=== PATIENT | male | born 1965 | race Caucasian/White ===

== ENCOUNTER 2017-05-10 10:22 | Inpatient (IN) | payer OTHER ==
[~2017-05-10] VITALS: Ht 177.8 cm; Wt 60.6 kg
[2017-05-10] MEDS ORDERED: ASPI81TA28 PO (11:03)
[2017-05-10] MEDS ORDERED: MELO7.5T5 PO (11:03)
[2017-05-10] MEDS ORDERED: PANT40TA PO (11:03)
[2017-05-10] MEDS ORDERED: DLN100 PO (11:03)
[2017-05-10] MEDS ORDERED: MIRT15TA2 PO (11:03)
[2017-05-10] MEDS ORDERED: SODIINJ24 IV (11:03)
[2017-05-10] MEDS ORDERED: PHEN50CH PO (11:03)
[2017-05-10] MEDS ORDERED: LPT10 (11:03)
[2017-05-10] MEDS ORDERED: ONDANSETRON INJ 2 MG/ML 2 ML VIAL IV STA (11:16)
[2017-05-10] MEDS ORDERED: SODIUM CHLORIDE 0.9% 1000ML 1,000 ML IV STA (11:16)
[2017-05-10] MEDS ORDERED: MoRPHine SULFATE 4 MG/ML 1 ML CARP\\VIAL IV STA (11:16)
[2017-05-10] MEDS ORDERED: OPTIRAY 320 IV PRN (11:30)
[2017-05-10] MEDS ORDERED: PANTOprazole INJ 40 MG in SYRINGE 0 ML IV ONE (11:30)
[2017-05-10 11:40] LABS: BASO % 0.1 %; BASO ABS # 0.01 K/uL (0-0.2); COMPLETE YES; EOS % 0.1 %; HEMATOCRIT 42.9 % (42-52); IG% 0.2 %; LYMPH % 7.4 %; LYMPH ABS # 0.85 K/uL (1.2-3.4); MEAN CELL VOLUME 91.9 fL (80-100); MEAN CORPUSCULAR HEMOGLOBIN 31.9 pg (25-34); MEAN CORPUSCULAR HGB CONC 34.7 g/dl (32-36); MEAN PLATELET VOLUME 9.5 fL (7.4-10.4); MONO % 6.3 %; NEUT % 85.9 %; PLATELET COUNT 197 K/uL (130-400); RED BLOOD COUNT 4.67 M/uL (4.7-6.1)
[2017-05-10 11:56] LABS: ALT/SGPT 26 U/L (12-78); BLOOD UREA NITROGEN 14 mg/dl (7-18); CALCIUM 9.8 mg/dl (8.5-10.1); CARBON DIOXIDE 39 mmol/L (21-32); CHLORIDE 93 mmol/L (98-107); CREATININE 0.89 mg/dl (0.60-1.40); GLUCOSE 137 mg/dl (70-99); SODIUM 136 mmol/L (136-145)
[2017-05-10 11:59] LABS: ALKALINE PHOSPHATASE 180 U/L (45-117); AST/SGOT 29 U/L (15-37)
[2017-05-10] MEDS ORDERED: METOCLOPRAMIDE HCL INJ 5 MG/ML 2 ML VIAL IV STA (12:41)
--- NOTE | 2017-05-10 13:51 | DIAGNOSTIC IMAGING REPORT ---
ABDOMEN AND PELVIS CT WITH IV CONTRAST CT DOSE: 307.93 mGycm HISTORY: Nausea. Vomiting. diffuse abd pain TECHNIQUE: Multiaxial CT images of the abdomen and pelvis were performed following the use of intravenous contrast. A dose lowering technique was utilized adhering to the principles of ALARA. COMPARISON STUDY: None. FINDINGS: The lung bases are clear. No pneumoperitoneum. No pneumatosis. There is moderate thickening within the fluid filled mildly distended esophagus. There is periesophageal edema. There is a severely distended and fluid-filled stomach and proximal duodenum. There is abrupt caliber change at the third portion of the duodenum as it crosses the aorta. This is consistent with the transition point of the high-grade duodenal obstruction. No definite mass identified. The remaining small bowel is completely decompressed. The bladder is mildly distended. No retroperitoneal lymphadenopathy. The distended stomach and duodenum compresses the gallbladder. There is mild right hydronephrosis likely secondary to compression of the mid ureter from the distended proximal duodenum. The duodenum also compresses the IVC. The kidneys enhance normally. No hepatic or splenic masses. The pancreas is compressed by the distended stomach but appears to demonstrate normal enhancement. Mild dilatation of the distal main pancreatic duct measuring 4 mm. This could also be due to the distended duodenum. Trace right pleural effusion. IMPRESSION: 1. High-grade of duodenal obstruction with the transition point at the third portion of the duodenum as it crosses the aorta. There is no definite mass identified. Nasogastric tube is recommended to decompress the severely distended and fluid-filled stomach. The etiology of the obstruction is not clearly identified but could be due to an occult mass, stricture, or possibly a superior mesenteric artery syndrome given the location of the obstruction. Endoscopy is recommended for further evaluation. 2. Mildly distended distal esophagus which demonstrates moderate wall thickening and periesophageal edema. This could also be due to the long-standing obstruction. Esophageal tear is considered less likely given the lack of pneumomediastinum. 3. These findings were discussed with Dr. Guevara at 1:45 PM on 05/10/2017. Electronically signed by: Marek Beck M.D. 05/10/2017 1:49 PM Dictated Date/Time: 05/10/2017 1:32 PM
[2017-05-10 14:37] LABS: URINE APPEARANCE CLEAR (CLEAR); URINE BILIRUBIN NEG (NEG); URINE COLOR YELLOW; URINE NITRITE NEG (NEG); URINE PH >= 9.0 (4.5-7.5); URINE SPECIFIC GRAVITY > 1.045 (1.000-1.030); UROBILINOGEN NEG (NEG); ZZUR CULT IF INDIC CLEAN CATCH NO
[2017-05-10 14:44] LABS: MANUAL MICROSCOPIC REQUIRED? NO; REVIEW REQ? NO
[2017-05-10 14:45] LABS: SULFASALICYLIC ACID NEG (NEG)
--- NOTE | 2017-05-10 15:20 | Pre-Operative Consultation ---
History General Date of Service: May 10, 2017. (Elkin Bird JR.,FARHADC) HPI HPI: The patient is a 51 year old male inmate brought to the ER for bloating, N/V that began yesterday after having chile for lunch. He was up most of the night vomiting. No previous episodes. [place] good yesterday morning. Bowels moved today. No previous abdominal surgery. Weight loss 10 pounds over several months. Has long history of hot/cold flashes and night sweats going back to childhood. (Elkin Bird JR.,HOMER) Risk Assessment Daily beta galina use?: No (Elkin Bird JR.,HOMER) Medical & Surgical History Past Medical History: seizure Past Surgical History: no surgical history (abdominal) (Elkin Bird JR.,HOMER) Social History Smoking Status: Current Every Day Smoker (Elkin Bird JR.,HOMER) Allergies Allergies: Coded Allergies: No Known Allergies (Unverified , 05/10/17) Medications Current Inpatient Medications Current Inpatient Medications Medications (Trade) Dose Ordered Sig/Dorothea Route Start Time Stop Time Status Last Admin Dose Admin Ioversol (Optiray 320) 100 ml UD PRN IV 05/10/17 11:30 05/14/17 11:29 (Elkin Bird JR.,FARHADC) Review of Systems Review of Systems Constitutional: see HPI, chills, diaphoresis, fever Gastrointestinal: see HPI, denies abdominal pain, denies constipation, denies diarrhea, nausea, vomiting (Elkin Bird JR.,NAVIN-C) Physical Exam Physical Exam Physical Exam: T 37.3 P 79 R 18 BP 151/99 O2 99% General Appearance: + other (thin), No distress Ears, Nose, Throat: + normal ENT inspection, + other (NG at 80 cm, > 4 liters drained) Neck: No lymphadenophy Respiratory: No accessory muscle use, No abnormal breath sounds Cardiovascular: No JVD, No tachycardia Abdomen: No tenderness, No distension, No organomegaly, No mass Extremities: No edema, No deformity (Elkin Bird JR.,FARHADC) Diagnostics Labs Labs Results Past 24 Hours Test 05/10/17 11:25 05/10/17 14:20 Range/Units White Blood Count 11.50 4.8-10.8 K/uL Red Blood Count 4.67 4.7-6.1 M/uL Hemoglobin 14.9 14.0-18.0 g/dL Hematocrit 42.9 42-52 % Mean Corpuscular Volume 91.9 80-100 fL Mean Corpuscular Hemoglobin 31.9 25-34 pg Mean Corpuscular Hemoglobin Concent 34.7 32-36 g/dl Platelet Count 197 130-400 K/uL Mean Platelet Volume 9.5 7.4-10.4 fL Neutrophils (%) (Auto) 85.9 % Lymphocytes (%) (Auto) 7.4 % Monocytes (%) (Auto) 6.3 % Eosinophils (%) (Auto) 0.1 % Basophils (%) (Auto) 0.1 % Neutrophils # (Auto) 9.88 1.4-6.5 K/uL Lymphocytes # (Auto) 0.85 1.2-3.4 K/uL Monocytes # (Auto) 0.73 0.11-0.59 K/uL Eosinophils # (Auto) 0.01 0-0.5 K/uL Basophils # (Auto) 0.01 0-0.2 K/uL RDW Standard Deviation 42.3 36.4-46.3 fL RDW Coefficient of Variation 12.6 11.5-14.5 % Immature Granulocyte % (Auto) 0.2 % Immature Granulocyte # (Auto) 0.02 0.00-0.02 K/uL Sodium Level 136 136-145 mmol/L Potassium Level 3.0 3.5-5.1 mmol/L Chloride Level 93 98-107 mmol/L Carbon Dioxide Level 39 21-32 mmol/L Anion Gap 4.0 3-11 mmol/L Blood Urea Nitrogen 14 7-18 mg/dl Creatinine 0.89 0.60-1.40 mg/dl Est Creatinine Clear Calc Drug Dose 82.3 ml/min Estimated GFR () 113.1 Estimated GFR (Non- 97.6 BUN/Creatinine Ratio 16.0 10-20 Random Glucose 137 70-99 mg/dl Calcium Level 9.8 8.5-10.1 mg/dl Total Bilirubin 0.5 0.2-1 mg/dl Direct Bilirubin < 0.1 0-0.2 mg/dl Aspartate Amino Transf (AST/SGOT) 29 15-37 U/L Alanine Aminotransferase (ALT/SGPT) 26 12-78 U/L Alkaline Phosphatase 180 45-117 U/L Total Protein 8.5 6.4-8.2 gm/dl Albumin 4.8 3.4-5.0 gm/dl Lipase 289 73-393 U/L Urine Color YELLOW Urine Appearance CLEAR CLEAR Urine pH >= 9.0 4.5-7.5 Urine Specific [place] > 1.045 1.000-1.030 Urine Protein NEG NEG Urine Glucose (UA) NEG NEG Urine Ketones NEG NEG Urine Occult Blood NEG NEG Urine Nitrite NEG NEG Urine Bilirubin NEG NEG Urine Urobilinogen NEG NEG Urine Leukocyte Esterase NEG NEG Urine WBC (Auto) 1-5 0-5 /hpf Urine RBC (Auto) 0-4 0-4 /hpf Urine Hyaline Casts (Auto) 1-5 0-5 /lpf Urine Epithelial Cells (Auto) 10-20 0-5 /lpf Urine Bacteria (Auto) NEG NEG (Elkin Bird JR.,PA-C) Diagnostic Radiology Diagnostic Radiology ABDOMEN AND PELVIS CT WITH IV CONTRAST CT DOSE: 307.93 mGycm HISTORY: Nausea. Vomiting. diffuse abd pain TECHNIQUE: Multiaxial CT images of the abdomen and pelvis were performed following the use of intravenous contrast. A dose lowering technique was utilized adhering to the principles of ALARA. COMPARISON STUDY: None. FINDINGS: The lung bases are clear. No pneumoperitoneum. No pneumatosis. There is moderate thickening within the fluid filled mildly distended esophagus. There is periesophageal edema. There is a severely distended and fluid-filled stomach and proximal duodenum. There is abrupt caliber change at the third portion of the duodenum as it crosses the aorta. This is consistent with the transition point of the high-grade duodenal obstruction. No definite mass identified. The remaining small bowel is completely decompressed. The bladder is mildly distended. No retroperitoneal lymphadenopathy. The distended stomach and duodenum compresses the gallbladder. There is mild right hydronephrosis likely secondary to compression of the mid ureter from the distended proximal duodenum. The duodenum also compresses the IVC. The kidneys enhance normally. No hepatic or splenic masses. The pancreas is compressed by the distended stomach but appears to demonstrate normal enhancement. Mild dilatation of the distal main pancreatic duct measuring 4 mm. This could also be due to the distended duodenum. Trace right pleural effusion. IMPRESSION: 1. High-grade of duodenal obstruction with the transition point at the third portion of the duodenum as it crosses the aorta. There is no definite mass identified. Nasogastric tube is recommended to decompress the severely distended and fluid-filled stomach. The etiology of the obstruction is not clearly identified but could be due to an occult mass, stricture, or possibly a superior mesenteric artery syndrome given the location of the obstruction. Endoscopy is recommended for further evaluation. 2. Mildly distended distal esophagus which demonstrates moderate wall thickening and periesophageal edema. This could also be due to the long-standing obstruction. Esophageal tear is considered less likely given the lack of pneumomediastinum. 3. These findings were discussed with Dr. Guevara at 1:45 PM on 05/10/2017. Electronically signed by: Marek Beck M.D. 05/10/2017 1:49 PM Dictated Date/Time: 05/10/2017 1:32 PM (Elkin Bird JR.,FARHADC) Impression Assessment and Plan Assessment and Plan duodenal obstruction Decompressed with placement of NG. Abdominal exam is benign. Being admitted by medicine and awaiting GI evaluation. We will be following during admission. NG can be pulled back. (Elkin Bird JR.,PAVeliaC) Assessment and Plan 05/10/17- please see Ale Bird consult- pt says he was feeling ok until last day or 2 to ER with severe abd pain- w/u showed duodenal obstruction- 3rd portion- severe gastric distention- recovered 4.5 liters NG output so far. Feels better. Has had wt loss over unknown period. For GI evaluation. No malignancy seen on studies- would be very unusual to see SMA syndrome in this setting. (Aleksandar Toussaint M.D.)
[2017-05-10] MEDS ORDERED: ONDANSETRON INJ 2 MG/ML 2 ML VIAL IV PRN (15:45)
[2017-05-10] MEDS ORDERED: ACETAMINOPHEN IV 650 MG in EMPTY BAG 0 ML IV PRN (15:45)
--- NOTE | 2017-05-10 15:46 | EMERGENCY ROOM VISIT NOTE ---
History Report prepared by Tae: Corazon Flor Under the Supervision of: Dr. Eliu Guevara D.O. First contact with patient: 11:09 Chief Complaint: ABDOMINAL PAIN Stated Complaint: ABDOMINAL PAIN Nursing Triage Summary: Patient is an inmate from [facility] escorted by 2 correction officers. Patient presents to ER via ALS. Per EMS, patient c/o of abdominal pain, nausea and vomiting since last night. Possible hx of Hepatitis C. Last BM this morning. No Diarrhea. Patient received Zofran 4 mg enroute. History of Present Illness The patient is a 51 year old male who presents to the Emergency Room with complaints of persistent diffuse abdominal pain that began yesterday. He currently rates his discomfort as an 8/10 in severity. The patient states that his pain began yesterday and states that he has been nauseous and vomiting as well. He states that his last bowel movement was yesterday, noting that it was normal. The patient denies any history of abdominal surgeries. He states that today he developed burning with urination. The patient denies any history of cirrhosis of the liver. He does report a history of seizures. Per nursing notes the patient received 4 mg of Zofran en-route to the emergency department. The patient denies headache, change in vision, fevers, chest pain, shortness of breath, diarrhea, and melena. Source of History: patient Onset: yesterday Position: abdomen (diffuse) Symptom Intensity: 8/10 Timing: other (persistent) Associated Symptoms: + nausea, + vomiting Review of Systems See HPI for pertinent positives & negatives. A total of 10 systems reviewed and were otherwise negative. Past Medical & Surgical Medical Problems: (1) SBO (small bowel obstruction) (2) Seizure Family History no pertinent family history stated. Social History Smoking Status: Current Every Day Smoker Housing Status: other ([facility]) Occupation Status: unemployed Current/Historical Medications Scheduled Aspirin (Aspirin Ec), 81 MG PO DAILY Meloxicam (Mobic), 15 MG PO DAILY Pantoprazole (Protonix), 40 MG PO DAILY Phenytoin Sodium (Dilantin), 1 CAP PO TID Sodium Chloride Flush (Normal Saline I.v. Flush), 150 ML IV Q1H Miscellaneous Medications Atorvastatin (Atorvastatin Calcium) Mirtazapine Soltab (Remeron Soltab), 15 MG PO Phenytoin (Dilantin Chewable), 50 MG PO Allergies Coded Allergies: No Known Allergies (Unverified , 05/10/17) Physical Exam Vital Signs Date Time Temp Pulse Resp B/P (MAP) Pulse Ox O2 Delivery O2 Flow Rate FiO2 05/10/17 14:22 79 18 151/99 99 Room Air 05/10/17 13:13 67 05/10/17 13:00 72 16 146/89 98 Room Air 05/10/17 12:13 70 18 144/87 99 Room Air 05/10/17 10:37 75 05/10/17 10:22 37.3 75 18 136/87 95 Room Air Physical Exam GENERAL: Sitting up in bed, alert, ill-appearing, iwth coffee ground emesis, gastro-keo positive. EYE EXAM: normal conjunctiva. OROPHARYNX: no exudate, no erythema, lips, buccal mucosa, and tongue normal and mucous membranes are moist NECK: supple, no nuchal rigidity, no adenopathy, non-tender LUNGS: Clear to auscultation. Normal chest wall mechanics HEART: no murmurs, S1 normal and S2 normal ABDOMEN: abdomen distended, mild diffuse tenderness, normo-active bowel sounds, no masses, no rebound or guarding. BACK: Back is symmetrical on inspection and there is no deformity, no midline tenderness, no CVA tenderness. SKIN: no rashes and no bruising UPPER EXTREMITIES: upper extremities are grossly normal. LOWER EXTREMITIES: No pitting edema. NEURO EXAM: Normal sensorium, cranial nerves II-XII grossly intact, normal speech, no gross weakness of arms, no gross weakness of legs. Medical Decision & Procedures ER Provider Diagnostic Interpretation: CT:Per my review, radiologist interpretation. ABDOMEN AND PELVIS CT WITH IV CONTRAST CT DOSE: 307.93 mGycm HISTORY: Nausea. Vomiting. diffuse abd pain TECHNIQUE: Multiaxial CT images of the abdomen and pelvis were performed following the use of intravenous contrast. A dose lowering technique was utilized adhering to the principles of ALARA. COMPARISON STUDY: None. FINDINGS: The lung bases are clear. No pneumoperitoneum. No pneumatosis. There is moderate thickening within the fluid filled mildly distended esophagus. There is periesophageal edema. There is a severely distended and fluid-filled stomach and proximal duodenum. There is abrupt caliber change at the third portion of the duodenum as it crosses the aorta. This is consistent with the transition point of the high-grade duodenal obstruction. No definite mass identified. The remaining small bowel is completely decompressed. The bladder is mildly distended. No retroperitoneal lymphadenopathy. The distended stomach and duodenum compresses the gallbladder. There is mild right hydronephrosis likely secondary to compression of the mid ureter from the distended proximal duodenum. The duodenum also compresses the IVC. The kidneys enhance normally. No hepatic or splenic masses. The pancreas is compressed by the distended stomach but appears to demonstrate normal enhancement. Mild dilatation of the distal main pancreatic duct measuring 4 mm. This could also be due to the distended duodenum. Trace right pleural effusion. IMPRESSION: 1. High-grade of duodenal obstruction with the transition point at the third portion of the duodenum as it crosses the aorta. There is no definite mass identified. Nasogastric tube is recommended to decompress the severely distended and fluid-filled stomach. The etiology of the obstruction is not clearly identified but could be due to an occult mass, stricture, or possibly a superior mesenteric artery syndrome given the location of the obstruction. Endoscopy is recommended for further evaluation. 2. Mildly distended distal esophagus which demonstrates moderate wall thickening and periesophageal edema. This could also be due to the long-standing obstruction. Esophageal tear is considered less likely given the lack of pneumomediastinum. 3. These findings were discussed with Dr. Guevara at 1:45 PM on 05/10/2017. Electronically signed by: Marek Beck M.D. 05/10/2017 1:49 PM Dictated Date/Time: 05/10/2017 1:32 PM Laboratory Results 05/10/17 11: Red Blood Count 4.67, Mean Corpuscular Volume 91.9, Mean Corpuscular Hemoglobin 31.9, Mean Corpuscular Hemoglobin Concent 34.7, Mean Platelet Volume 9.5, Neutrophils (%) (Auto) 85.9, Lymphocytes (%) (Auto) 7.4, Monocytes (%) (Auto) 6.3, Eosinophils (%) (Auto) 0.1, Basophils (%) (Auto) 0.1, Neutrophils # (Auto) 9.88, Lymphocytes # (Auto) 0.85, Monocytes # (Auto) 0.73, Eosinophils # (Auto) 0.01, Basophils # (Auto) 0.01 05/10/17 11:25 Test 05/10/17 11:25 05/10/17 14:20 White Blood Count 11.50 K/uL (4.8-10.8) Red Blood Count 4.67 M/uL (4.7-6.1) Hemoglobin 14.9 g/dL (14.0-18.0) Hematocrit 42.9 % (42-52) Mean Corpuscular Volume 91.9 fL (80-100) Mean Corpuscular Hemoglobin 31.9 pg (25-34) Mean Corpuscular Hemoglobin Concent 34.7 g/dl (32-36) Platelet Count 197 K/uL (130-400) Mean Platelet Volume 9.5 fL (7.4-10.4) Neutrophils (%) (Auto) 85.9 % Lymphocytes (%) (Auto) 7.4 % Monocytes (%) (Auto) 6.3 % Eosinophils (%) (Auto) 0.1 % Basophils (%) (Auto) 0.1 % Neutrophils # (Auto) 9.88 K/uL (1.4-6.5) Lymphocytes # (Auto) 0.85 K/uL (1.2-3.4) Monocytes # (Auto) 0.73 K/uL (0.11-0.59) Eosinophils # (Auto) 0.01 K/uL (0-0.5) Basophils # (Auto) 0.01 K/uL (0-0.2) RDW Standard Deviation 42.3 fL (36.4-46.3) RDW Coefficient of Variation 12.6 % (11.5-14.5) Immature Granulocyte % (Auto) 0.2 % Immature Granulocyte # (Auto) 0.02 K/uL (0.00-0.02) Anion Gap 4.0 mmol/L (3-11) Est Creatinine Clear Calc Drug Dose 82.3 ml/min Estimated GFR () 113.1 Estimated GFR (Non- 97.6 BUN/Creatinine Ratio 16.0 (10-20) Calcium Level 9.8 mg/dl (8.5-10.1) Total Bilirubin 0.5 mg/dl (0.2-1) Direct Bilirubin < 0.1 mg/dl (0-0.2) Aspartate Amino Transf (AST/SGOT) 29 U/L (15-37) Alanine Aminotransferase (ALT/SGPT) 26 U/L (12-78) Alkaline Phosphatase 180 U/L (45-117) Total Protein 8.5 gm/dl (6.4-8.2) Albumin 4.8 gm/dl (3.4-5.0) Lipase 289 U/L (73-393) Urine Color YELLOW Urine Appearance CLEAR (CLEAR) Urine pH >= 9.0 (4.5-7.5) Urine Specific [place] > 1.045 (1.000-1.030) Urine Protein NEG (NEG) Urine Glucose (UA) NEG (NEG) Urine Ketones NEG (NEG) Urine Occult Blood NEG (NEG) Urine Nitrite NEG (NEG) Urine Bilirubin NEG (NEG) Urine Urobilinogen NEG (NEG) Urine Leukocyte Esterase NEG (NEG) Urine WBC (Auto) 1-5 /hpf (0-5) Urine RBC (Auto) 0-4 /hpf (0-4) Urine Hyaline Casts (Auto) 1-5 /lpf (0-5) Urine Epithelial Cells (Auto) 10-20 /lpf (0-5) Urine Bacteria (Auto) NEG (NEG) Laboratory results per my review. Medications Administered Medications (Trade) Dose Ordered Sig/Dorothea Route Start Time Stop Time Status Last Admin Dose Admin Sodium Chloride 1,000 ml @ 999 mls/hr Q1H1M STAT IV 05/10/17 11:16 05/10/17 12:16 DC 05/10/17 11:16 999 MLS/HR Ondansetron HCl (Zofran Inj) 4 mg NOW STAT IV 05/10/17 11:16 05/10/17 11:18 DC 05/10/17 11:16 4 MG Pantoprazole Sodium 40 mg/ Syringe 10 ml @ 5 mls/min NOW ONCE IV 05/10/17 11:30 05/10/17 11:31 DC 05/10/17 11:30 5 MLS/MIN Morphine Sulfate (MoRPHine SULFATE INJ) 4 mg NOW STAT IV 05/10/17 11:16 05/10/17 11:18 DC 05/10/17 11:16 4 MG Metoclopramide HCl (Reglan Inj) 5 mg NOW STAT IV 05/10/17 12:41 05/10/17 12:42 DC 05/10/17 13:00 5 MG ED Course ED COURSE: Vital signs were reviewed and showed normal vitals The patients medical record was reviewed The above diagnostic studies were performed and reviewed. ED treatments and interventions as stated above. 1112: The patient was evaluated in room C5. A complete history and physical examination was performed. 1116: Ordered Morphine Sulfate 4 mg IV, Zofran Inj 4 mg IV, Sodium Chloride 1000 ml @ 999 mls/hr IV. 1130: Ordered Pantoprazole Sodium 40 mg/Syringe 10 ml @ 5 mls/min IV. 1241: Ordered Reglan Inj 5 mg IV. 1325: I updated the patient at this time and he is doing okay. 1337: I discussed the patients radiographic results with Dr. Beck, Radiology. He states that the patient has a small bowel obstruction. 1358: I discussed the patients case with [facility]. She said get General Surgery on board and they will evaluate the patient. 1405: Upon reevaluation, the patient is resting comfortably.I discussed my findings with the patient and he understands and agrees with the treatment plan. Based on the patients age, coexisting illnesses, exam and lab findings the decision to treat as an inpatient was made. The patient remained stable while under my care. The patient will be evaluated for further management. 1406: I discussed the patients case with Dr. Toussaint, General Surgery. He states that he will see the patient. 1410: I discussed the patients case with Santa Jamison. She is going to evaluate the patient for further treatment. Medical Decision Differential diagnoses includes but is not limited to gastritis, peptic ulcer disease, GERD, gallbladder disease, pancreatitis, small bowel obstruction, acute coronary syndrome, pericarditis, ischemic bowel, irritable bowel disease, irritable bowel syndrome, appendicitis, diverticulitis, malignancy, hernia, urinary tract infection, torsion, perforation, trauma, infectious. Patient is a 51-year-old male who presents to ER for vomiting and abdominal pain. On exam he does have hematemesis. CBC shows a mild leukocytosis. BMP has a hypokalemia. Bilirubin all LFTs and lipase is unremarkable. UA was negative. CT shows a high-grade duodenal obstruction. Discussed with GI and surgery. Both will evaluate the patient at bedside. I did place an NG tube and over 2 L was removed. He was given IV Protonix. Patient was also given Zofran and Reglan. He felt significant better. Discussed with internal medicine. He is admitted for high-grade duodenal obstruction and is being evaluated by GI, surgery and internal medicine. Medication Reconcilliation Current Medication List: was personally reviewed by me Blood Pressure Screening Patient's blood pressure: Normal blood pressure Blood pressure disposition: Did not require urgent referral Consults Time Called: 1354 Consulting Physician: Aliza Gonzalez, Gastroenterology Returned Call: [phone] I discussed the patients case with [facility]. She said get General Surgery on board and they will evaluate the patient. Additional Consults: Time Called: 1403 Consulted Physician: Dr. Toussaint, General Surgery Returned Call: [phone] Additional Comments: I discussed the patients case with Dr. Toussaint, General Surgery. He states that he will see the patient. Time Called: 1403 Consulted Physician: Santa Jamison Returned Call: [phone] Additional Comments: I discussed the patients case with Snata Jamison. She is going to evaluate the patient for further treatment. Impression Primary Impression: SBO (small bowel obstruction) Additional Impression: Hypokalemia Scribe Attestation The scribe's documentation has been prepared under my direction and personally reviewed by me in its entirety. I confirm that the note above accurately reflects all work, treatment, procedures, and medical decision making performed by me. Departure Information Dispostion Being Evaluated By Hospitalist Problem Qualifiers
[2017-05-10 16:15] VITALS: BP 120/76; PULSE 83; TEMP 37.1; O2SAT 98
--- NOTE | 2017-05-10 16:41 | History and Physical ---
History & Physical Date & Time of Service: May 10, 2017 at 16:11 Chief Complaint: Abdominal Pain Primary Care Physician: No Doctor, Assigned History of Present Illness Source: patient 51 yo M prisoner presents with abdominal pain and distention since yesterday shortly after eating some chili in the [place]. He began vomiting which was continuous overnight. His last BM was yesterday and he denies any abnormality to the stool. He denies any blood in stool. He denies a history of this type of abdominal pain in the past and denies any surgeries in the past. He is a prior marajuana user and prior heavy drinker, but is currently incarcerated. He reports using Mobic, ASA and Protonix regularly and has chronic back pain. He reports a h/o migraines and chronic back pain which are not currently present. He otherwise has no other symptoms at this time. In the ER a CT scan revealed a high grade small bowel obstruction and an NGT was placed with 4500 cc of fluid returned and reported hematemesis per ER provider. The patient subsequently is feeling well since the NGT was placed with no further abdominal distention and resolution of his abdominal pain. Past Medical/Surgical History Medical Problems: (1) Chronic back pain Status: Chronic (2) Hyperlipidemia Status: Chronic (3) Seizure Status: Resolved Denies a prior history of surgeries. Family History Patient reports no known family medical history. Social History Smoking Status: Current Every Day Smoker Smokeless Tobacco Use: Yes Alcohol Use: none Drug Use: none Marital Status: other Housing status: other Occupational Status: other Multi-Drug Resistant Organisms History of MDRO: No Allergies Coded Allergies: No Known Allergies (Unverified , 05/10/17) Home Medications Scheduled Aspirin (Aspirin Ec), 81 MG PO DAILY Meloxicam (Mobic), 15 MG PO DAILY Mirtazapine Soltab (Remeron Soltab), 15 MG PO HS Pantoprazole (Protonix), 40 MG PO DAILY Phenytoin (Dilantin Chewable), 50 MG PO HS Phenytoin Sodium (Dilantin), 2 CAP PO BID Miscellaneous Medications Atorvastatin (Atorvastatin Calcium) Review of Systems At least ten systems were reviewed and negative except as indicated in HPI. Physical Exam Vital Signs Date Time Temp Pulse Resp B/P (MAP) Pulse Ox O2 Delivery O2 Flow Rate FiO2 05/10/17 15:54 89 14 129/76 97 Room Air 05/10/17 14:22 79 18 151/99 99 Room Air 05/10/17 13:13 67 05/10/17 13:00 72 16 146/89 98 Room Air 05/10/17 12:13 70 18 144/87 99 Room Air 05/10/17 10:37 75 05/10/17 10:22 37.3 75 18 136/87 95 Room Air General Appearance: no apparent distress, + thin, + pertinent finding (NGT in place with dark vomitous in suction cannister. ) Head: normocephalic, atraumatic Eyes: normal inspection, PERRL, sclerae normal ENT: hearing grossly normal, pharynx normal Neck: supple, no JVD, trachea midline Respiratory/Chest: lungs clear, no respiratory distress, no accessory muscle use, + decreased breath sounds (clear but diminished) Cardiovascular: regular rate, rhythm, no edema, no gallop, no murmur, normal peripheral pulses Abdomen/GI: normal bowel sounds, non tender, soft Back: normal inspection Extremities/Musculoskelatal: normal inspection, no pedal edema, + pertinent finding (limited ability to test ROM as pt has leg shackles on ) Neurologic/Psych: 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, no motor/sensory deficits, alert, normal mood/affect, oriented x 3 Skin: normal color, warm/dry, no rash Diagnostics Laboratory Results 05/10/17 11:25 Red Blood Count 4.67, Mean Corpuscular Volume 91.9, Mean Corpuscular Hemoglobin 31.9, Mean Corpuscular Hemoglobin Concent 34.7, Mean Platelet Volume 9.5, Neutrophils (%) (Auto) 85.9, Lymphocytes (%) (Auto) 7.4, Monocytes (%) (Auto) 6.3, Eosinophils (%) (Auto) 0.1, Basophils (%) (Auto) 0.1, Neutrophils # (Auto) 9.88, Lymphocytes # (Auto) 0.85, Monocytes # (Auto) 0.73, Eosinophils # (Auto) 0.01, Basophils # (Auto) 0.01 05/10/17 11:25 Test 05/10/17 11:25 05/10/17 14:20 05/10/17 16:02 White Blood Count 11.50 K/uL (4.8-10.8) Red Blood Count 4.67 M/uL (4.7-6.1) Hemoglobin 14.9 g/dL (14.0-18.0) Hematocrit 42.9 % (42-52) Mean Corpuscular Volume 91.9 fL (80-100) Mean Corpuscular Hemoglobin 31.9 pg (25-34) Mean Corpuscular Hemoglobin Concent 34.7 g/dl (32-36) Platelet Count 197 K/uL (130-400) Mean Platelet Volume 9.5 fL (7.4-10.4) Neutrophils (%) (Auto) 85.9 % Lymphocytes (%) (Auto) 7.4 % Monocytes (%) (Auto) 6.3 % Eosinophils (%) (Auto) 0.1 % Basophils (%) (Auto) 0.1 % Neutrophils # (Auto) 9.88 K/uL (1.4-6.5) Lymphocytes # (Auto) 0.85 K/uL (1.2-3.4) Monocytes # (Auto) 0.73 K/uL (0.11-0.59) Eosinophils # (Auto) 0.01 K/uL (0-0.5) Basophils # (Auto) 0.01 K/uL (0-0.2) RDW Standard Deviation 42.3 fL (36.4-46.3) RDW Coefficient of Variation 12.6 % (11.5-14.5) Immature Granulocyte % (Auto) 0.2 % Immature Granulocyte # (Auto) 0.02 K/uL (0.00-0.02) Anion Gap 4.0 mmol/L (3-11) Est Creatinine Clear Calc Drug Dose 82.3 ml/min Estimated GFR () 113.1 Estimated GFR (Non- 97.6 BUN/Creatinine Ratio 16.0 (10-20) Calcium Level 9.8 mg/dl (8.5-10.1) Total Bilirubin 0.5 mg/dl (0.2-1) Direct Bilirubin < 0.1 mg/dl (0-0.2) Aspartate Amino Transf (AST/SGOT) 29 U/L (15-37) Alanine Aminotransferase (ALT/SGPT) 26 U/L (12-78) Alkaline Phosphatase 180 U/L (45-117) Total Protein 8.5 gm/dl (6.4-8.2) Albumin 4.8 gm/dl (3.4-5.0) Lipase 289 U/L (73-393) Urine Color YELLOW Urine Appearance CLEAR (CLEAR) Urine pH >= 9.0 (4.5-7.5) Urine Specific [place] > 1.045 (1.000-1.030) Urine Protein NEG (NEG) Urine Glucose (UA) NEG (NEG) Urine Ketones NEG (NEG) Urine Occult Blood NEG (NEG) Urine Nitrite NEG (NEG) Urine Bilirubin NEG (NEG) Urine Urobilinogen NEG (NEG) Urine Leukocyte Esterase NEG (NEG) Urine WBC (Auto) 1-5 /hpf (0-5) Urine RBC (Auto) 0-4 /hpf (0-4) Urine Hyaline Casts (Auto) 1-5 /lpf (0-5) Urine Epithelial Cells (Auto) 10-20 /lpf (0-5) Urine Bacteria (Auto) NEG (NEG) Results Past 24 Hours Test 05/10/17 11:25 05/10/17 14:20 05/10/17 16:02 Range/Units White Blood Count 11.50 4.8-10.8 K/uL Red Blood Count 4.67 4.7-6.1 M/uL Hemoglobin 14.9 14.0-18.0 g/dL Hematocrit 42.9 42-52 % Mean Corpuscular Volume 91.9 80-100 fL Mean Corpuscular Hemoglobin 31.9 25-34 pg Mean Corpuscular Hemoglobin Concent 34.7 32-36 g/dl Platelet Count 197 130-400 K/uL Mean Platelet Volume 9.5 7.4-10.4 fL Neutrophils (%) (Auto) 85.9 % Lymphocytes (%) (Auto) 7.4 % Monocytes (%) (Auto) 6.3 % Eosinophils (%) (Auto) 0.1 % Basophils (%) (Auto) 0.1 % Neutrophils # (Auto) 9.88 1.4-6.5 K/uL Lymphocytes # (Auto) 0.85 1.2-3.4 K/uL Monocytes # (Auto) 0.73 0.11-0.59 K/uL Eosinophils # (Auto) 0.01 0-0.5 K/uL Basophils # (Auto) 0.01 0-0.2 K/uL RDW Standard Deviation 42.3 36.4-46.3 fL RDW Coefficient of Variation 12.6 11.5-14.5 % Immature Granulocyte % (Auto) 0.2 % Immature Granulocyte # (Auto) 0.02 0.00-0.02 K/uL Sodium Level 136 136-145 mmol/L Potassium Level 3.0 3.5-5.1 mmol/L Chloride Level 93 98-107 mmol/L Carbon Dioxide Level 39 21-32 mmol/L Anion Gap 4.0 3-11 mmol/L Blood Urea Nitrogen 14 7-18 mg/dl Creatinine 0.89 0.60-1.40 mg/dl Est Creatinine Clear Calc Drug Dose 82.3 ml/min Estimated GFR () 113.1 Estimated GFR (Non- 97.6 BUN/Creatinine Ratio 16.0 10-20 Random Glucose 137 70-99 mg/dl Calcium Level 9.8 8.5-10.1 mg/dl Total Bilirubin 0.5 0.2-1 mg/dl Direct Bilirubin < 0.1 0-0.2 mg/dl Aspartate Amino Transf (AST/SGOT) 29 15-37 U/L Alanine Aminotransferase (ALT/SGPT) 26 12-78 U/L Alkaline Phosphatase 180 45-117 U/L Total Protein 8.5 6.4-8.2 gm/dl Albumin 4.8 3.4-5.0 gm/dl Lipase 289 73-393 U/L Urine Color YELLOW Urine Appearance CLEAR CLEAR Urine pH >= 9.0 4.5-7.5 Urine Specific [place] > 1.045 1.000-1.030 Urine Protein NEG NEG Urine Glucose (UA) NEG NEG Urine Ketones NEG NEG Urine Occult Blood NEG NEG Urine Nitrite NEG NEG Urine Bilirubin NEG NEG Urine Urobilinogen NEG NEG Urine Leukocyte Esterase NEG NEG Urine WBC (Auto) 1-5 0-5 /hpf Urine RBC (Auto) 0-4 0-4 /hpf Urine Hyaline Casts (Auto) 1-5 0-5 /lpf Urine Epithelial Cells (Auto) 10-20 0-5 /lpf Urine Bacteria (Auto) NEG NEG Diagnostic Radiology ABDOMEN AND PELVIS CT WITH IV CONTRAST CT DOSE: 307.93 mGycm HISTORY: Nausea. Vomiting. diffuse abd pain TECHNIQUE: Multiaxial CT images of the abdomen and pelvis were performed following the use of intravenous contrast. A dose lowering technique was utilized adhering to the principles of ALARA. COMPARISON STUDY: None. FINDINGS: The lung bases are clear. No pneumoperitoneum. No pneumatosis. There is moderate thickening within the fluid filled mildly distended esophagus. There is periesophageal edema. There is a severely distended and fluid-filled stomach and proximal duodenum. There is abrupt caliber change at the third portion of the duodenum as it crosses the aorta. This is consistent with the transition point of the high-grade duodenal obstruction. No definite mass identified. The remaining small bowel is completely decompressed. The bladder is mildly distended. No retroperitoneal lymphadenopathy. The distended stomach and duodenum compresses the gallbladder. There is mild right hydronephrosis likely secondary to compression of the mid ureter from the distended proximal duodenum. The duodenum also compresses the IVC. The kidneys enhance normally. No hepatic or splenic masses. The pancreas is compressed by the distended stomach but appears to demonstrate normal enhancement. Mild dilatation of the distal main pancreatic duct measuring 4 mm. This could also be due to the distended duodenum. Trace right pleural effusion. IMPRESSION: 1. High-grade of duodenal obstruction with the transition point at the third portion of the duodenum as it crosses the aorta. There is no definite mass identified. Nasogastric tube is recommended to decompress the severely distended and fluid-filled stomach. The etiology of the obstruction is not clearly identified but could be due to an occult mass, stricture, or possibly a superior mesenteric artery syndrome given the location of the obstruction. Endoscopy is recommended for further evaluation. 2. Mildly distended distal esophagus which demonstrates moderate wall thickening and periesophageal edema. This could also be due to the long-standing obstruction. Esophageal tear is considered less likely given the lack of pneumomediastinum. 3. These findings were discussed with Dr. Guevara at 1:45 PM on 05/10/2017. EKG pending Impression Assessment and Plan 51 yo prisoner on chronic mobic and baby aspirin presents with a high grade SBO 1. SBO-improved after NGT placement. Some hematemesis noted but patient had been profusely vomiting overnight and likely has some irritation-placed on Protonix 40 IV BID. Apprec GI recs. He denied any h/o cirrhosis and there is no mention of changes consistent with cirrhosis on the CT scan today. NGT put out 4500cc of vomitus with great improvement in pain and distention per patient. Bowel sounds are present on exam and there is no TTP on exam. General Surgery has evaluated him and would like GI to weigh in, also. For now , continuing supportive care with NGT, pain control and antiemetics as needed, and IVF. NPO 2. Seizure history-switching PO dilantin to IV while NPO. I disucssed with pharmacist who recommended a 1:1 conversion so will give 200mg PO BID and adjust when the level returns. 3. Hyperlipidemia-Lipitor on hold while NPO 4. Hypokalemia-IV replacement ordered. DVT proph-SCDs in setting of hematemesis FULL CODE Dispo-to Med/Surg. Elissa Childress DO [facility] Level of Care Med/Surg Resuscitation Status FULL RESUSCITATION VTE Prophylaxis VTE Risk Assessment Done? Y/N: Yes Risk Level: Moderate Given or contraindicated: SCD's
[2017-05-10 17:02] LABS: INR 1.2 (0.9-1.1); PROTHROMBIN TIME (PATIENT) 12.4 SECONDS (9.0-12.0)
[2017-05-10 17:03] VITALS: O2SAT 98; BMI 19.2
[2017-05-10] MEDS: D5NSS + 20MEQ KCL 1,000 ML IV SCH (17:15)
[2017-05-10] MEDS: POTASSIUM CHLR 10 MEQ / WTR 10 MEQ in PREMIXED WATER 100 ML IV SCH ×4 (17:28→22:18)
--- NOTE | 2017-05-10 17:38 | DIAGNOSTIC IMAGING REPORT ---
CHEST ONE VIEW PORTABLE HISTORY: 51 years-old Male need baseline CXR in smoker with NGT in place and high grade obs acute small bowel obstruction. History of tobacco abuse COMPARISON: CT abdomen and pelvis of same day TECHNIQUE: Portable AP view of the chest FINDINGS: Cardiomediastinal and hilar silhouettes are within normal limits. There is no pneumothorax, pleural effusion, or overt pulmonary edema. Ill-defined patchy opacities are seen within the distribution of the right upper lobe which are subsegmental. Bones of the chest appear grossly intact. Enteric tube courses below the diaphragm with distal tip in the right upper abdomen, likely within region of the distal gastric lumen. There is decreased distention of the stomach from comparison. Persistent dilated loops of small bowel are seen within the upper abdomen. There is retained contrast within the right renal collecting system. IMPRESSION: 1. Subtle Ill-defined hazy opacities of the right upper lobe are suspicious for possible pneumonitis or scarring with composite pulmonary vascularity thought to be less likely. 2. Enteric tube overlies the right upper abdomen within the region of the distal gastric lumen. There is decreased distention of the gastric lumen from comparison. The above report was generated using voice recognition software. It may contain grammatical, syntax or spelling errors. Electronically signed by: Mihir Mackay M.D. 05/10/2017 5:37 PM Dictated Date/Time: 05/10/2017 5:32 PM
[2017-05-10] MEDS: PANTOprazole INJ 40 MG in SYRINGE 0 ML IV SCH (20:31)
[2017-05-10] MEDS: PHENYTOIN IV SCH (21:24)
[2017-05-10] MEDS: SODIUM CHLOR 0.9% 10ML FLUSH 20 ML in SYRINGE 0 ML IV SCH (21:25)
[2017-05-10 22:22] VITALS: BP 120/68; PULSE 90; TEMP 36.9; O2SAT 94
[2017-05-10 22:58] VITALS: BP 115/77; PULSE 88; TEMP 37.2; O2SAT 95
[2017-05-11] VITALS (9 sets, daily range): BP systolic 102–133; BP diastolic 62–81; PULSE 60–88; TEMP 36.6–37; O2SAT 95–98; Ht 177.8 cm; Wt 60.6 kg
[2017-05-11] MEDS: D5NSS + 20MEQ KCL 1,000 ML IV SCH ×2 (06:00→19:57)
[2017-05-11 08:16] LABS: BASO % 0.2 %; BASO ABS # 0.02 K/uL (0-0.2); COMPLETE YES; EOS % 1.3 %; HEMATOCRIT 38.3 % (42-52); IG% 0.1 %; LYMPH ABS # 1.86 K/uL (1.2-3.4); MEAN CELL VOLUME 94.1 fL (80-100); MEAN CORPUSCULAR HEMOGLOBIN 31.2 pg (25-34); MEAN CORPUSCULAR HGB CONC 33.2 g/dl (32-36); MEAN PLATELET VOLUME 9.4 fL (7.4-10.4); MONO % 10.2 %; NEUT % 68.2 %; PLATELET COUNT 151 K/uL (130-400); RED BLOOD COUNT 4.07 M/uL (4.7-6.1)
[2017-05-11 08:48] LABS: BUN/CREATININE RATIO 16.4 (10-20); CALCIUM 8.5 mg/dl (8.5-10.1); CREATININE 0.95 mg/dl (0.60-1.40); MAGNESIUM 2.1 mg/dl (1.8-2.4); PHOSPHORUS 2.2 mg/dl (2.5-4.9); POTASSIUM 3.8 mmol/L (3.5-5.1)
[2017-05-11] MEDS: PANTOprazole INJ 40 MG in SYRINGE 0 ML IV SCH ×2 (08:59→21:18)
[2017-05-11] MEDS: PHENYTOIN IV SCH ×2 (08:59→21:18)
[2017-05-11] MEDS: SODIUM CHLOR 0.9% 10ML FLUSH 20 ML in SYRINGE 0 ML IV SCH (09:00)
--- NOTE | 2017-05-11 10:48 | Gastrointestinal Consultation ---
Gastrointestinal Consultation Date of Consultation: May 11, 2017 Attending Physician: Dr. Leone (consult from Dr. Childress) Consulting Physician: Dr. Elder Reason for Consultation: Duodenal olbstruction History of Present Illness Patient is a 51 year old male inmate at [facility] with a hx of chronic back pain , hyperlipidemia, seizure. He was admitted yesterday for nausea/vomiting and GI is consulted for this. The pt reports an abrupt onset of nausea/vomiting on Monday night into yesterday morning. He also c/o some upper abd pain, chest pain, chills, sweats during the vomiting but says these symptoms have resolved. He also reports increased heartburn/reflux, bad taste over the past few months. On arrival, a CT suggested a duodenal obstruction as well as a distended distal esophagus, mild esophageal wall thickening. NG was placed with relief of vomiting and pain. He has mild leukocytosis at 11.5. Electrolytes are normal. He has remained hemodynamically stable. Past Medical/Surgical History Medical Problems: (1) Hypokalemia Status: Acute Past Medical History: 1. Chronic back pain 2. Hyperlipidemia 3. Seizure Past Surgical History: Pt mentions prior EGD >5 yrs ago at [place], [place] and believes it was normal. Denies any surgeries. Family History Patient reports no known family medical history. Social History Smoking Status: Current Every Day Smoker Drug Use: none Marital Status: other Housing Status: other ([facility]) Occupation Status: other Allergies Coded Allergies: No Known Allergies (Unverified , 05/10/17) Current Medications Home Meds and Scripts Medications Dose Route/Sig Max Daily Dose Days Date Category Dilantin (Phenytoin Sodium) 100 Mg Cap 2 Cap PO BID 05/10/17 Reported Dilantin Chewable (Phenytoin) 50 Mg Chw 50 Mg PO HS 05/10/17 Reported Protonix (Pantoprazole Sodium) 40 Mg Tab 40 Mg PO DAILY 05/10/17 Reported Remeron Soltab (Mirtazapine) 15 Mg Soltab 15 Mg PO HS 05/10/17 Reported Mobic (Meloxicam) 7.5 Mg Tab 15 Mg PO DAILY 05/10/17 Reported Atorvastatin Calcium (Atorvastatin) 10 Mg Tab 05/10/17 Reported Aspirin Ec (Aspirin) 81 Mg Tab 81 Mg PO DAILY 05/10/17 Reported Review of Systems Constitutional: + chills, + sweats, No fever, No weight loss, No weakness Eyes: No eye pain, No redness ENT: No sore throat, No trouble swallowing, No pain on swallowing Respiratory: No cough, No wheezing, No shortness of breath, No dyspnea on exertion Cardiac: No chest pain, No edema, No palpitations Abdomen: + see HPI, + pain, + nausea, + vomiting, No GI bleeding, No dysphagia Neuro: No memory loss, No weakness, No numbness/tingling, No vertigo, No balance problems Psych: No depression symptoms, No anxiety, No insomnia Heme: No abnormal bleeding/bruising, No night sweats Endo: No excessive thirst, No excessive urination Skin: No rash, No itch, No new/changing skin lesions, No jaundice Physical Exam Date Time Temp Pulse Resp B/P (MAP) Pulse Ox O2 Delivery O2 Flow Rate FiO2 05/11/17 08:14 37.0 88 16 109/70 95 Room Air 05/11/17 07:40 Room Air 05/11/17 07:22 37.0 88 16 109/70 (83) 95 Room Air 05/11/17 00:10 Room Air 05/10/17 22:58 37.2 88 15 115/77 (90) 95 Room Air 05/10/17 22:22 36.9 90 16 120/68 (85) 94 Room Air 05/10/17 17:03 98 Room Air 05/10/17 16:30 Room Air 05/10/17 16:15 37.1 83 16 120/76 (91) 98 Room Air 05/10/17 15:54 89 14 129/76 97 Room Air 05/10/17 14:22 79 18 151/99 99 Room Air 05/10/17 13:13 67 05/10/17 13:00 72 16 146/89 98 Room Air 05/10/17 12:13 70 18 144/87 99 Room Air General Appearance: no apparent distress, + thin ENT: pharynx normal Neck: supple, thyroid normal, no JVD Respiratory/Chest: lungs clear Cardiovascular: regular rate, rhythm, no JVD, no murmur Extremities: non-tender, normal inspection Neurologic/Psych: alert, normal mood/affect, oriented x 3 Laboratory Results Last 24 Hours Test 05/10/17 11:25 05/10/17 14:20 05/10/17 16:31 05/10/17 17:15 White Blood Count 11.50 K/uL Red Blood Count 4.67 M/uL Hemoglobin 14.9 g/dL Hematocrit 42.9 % Mean Corpuscular Volume 91.9 fL Mean Corpuscular Hemoglobin 31.9 pg Mean Corpuscular Hemoglobin Concent 34.7 g/dl Platelet Count 197 K/uL Mean Platelet Volume 9.5 fL Neutrophils (%) (Auto) 85.9 % Lymphocytes (%) (Auto) 7.4 % Monocytes (%) (Auto) 6.3 % Eosinophils (%) (Auto) 0.1 % Basophils (%) (Auto) 0.1 % Neutrophils # (Auto) 9.88 K/uL Lymphocytes # (Auto) 0.85 K/uL Monocytes # (Auto) 0.73 K/uL Eosinophils # (Auto) 0.01 K/uL Basophils # (Auto) 0.01 K/uL RDW Standard Deviation 42.3 fL RDW Coefficient of Variation 12.6 % Immature Granulocyte % (Auto) 0.2 % Immature Granulocyte # (Auto) 0.02 K/uL Sodium Level 136 mmol/L Potassium Level 3.0 mmol/L Chloride Level 93 mmol/L Carbon Dioxide Level 39 mmol/L Anion Gap 4.0 mmol/L Blood Urea Nitrogen 14 mg/dl Creatinine 0.89 mg/dl Est Creatinine Clear Calc Drug Dose 82.3 ml/min Estimated GFR () 113.1 Estimated GFR (Non- 97.6 BUN/Creatinine Ratio 16.0 Random Glucose 137 mg/dl Calcium Level 9.8 mg/dl Total Bilirubin 0.5 mg/dl Direct Bilirubin < 0.1 mg/dl Aspartate Amino Transf (AST/SGOT) 29 U/L Alanine Aminotransferase (ALT/SGPT) 26 U/L Alkaline Phosphatase 180 U/L Total Protein 8.5 gm/dl Albumin 4.8 gm/dl Lipase 289 U/L Urine Color YELLOW Urine Appearance CLEAR Urine pH >= 9.0 Urine Specific [place] > 1.045 Urine Protein NEG Urine Glucose (UA) NEG Urine Ketones NEG Urine Occult Blood NEG Urine Nitrite NEG Urine Bilirubin NEG Urine Urobilinogen NEG Urine Leukocyte Esterase NEG Urine WBC (Auto) 1-5 /hpf Urine RBC (Auto) 0-4 /hpf Urine Hyaline Casts (Auto) 1-5 /lpf Urine Epithelial Cells (Auto) 10-20 /lpf Urine Bacteria (Auto) NEG Prothrombin Time 12.4 SECONDS Prothromb Time International Ratio 1.2 Phenytoin (Dilantin) Level 13.8 mcg/mL Test 05/11/17 07:45 White Blood Count 9.30 K/uL Red Blood Count 4.07 M/uL Hemoglobin 12.7 g/dL Hematocrit 38.3 % Mean Corpuscular Volume 94.1 fL Mean Corpuscular Hemoglobin 31.2 pg Mean Corpuscular Hemoglobin Concent 33.2 g/dl Platelet Count 151 K/uL Mean Platelet Volume 9.4 fL Neutrophils (%) (Auto) 68.2 % Lymphocytes (%) (Auto) 20.0 % Monocytes (%) (Auto) 10.2 % Eosinophils (%) (Auto) 1.3 % Basophils (%) (Auto) 0.2 % Neutrophils # (Auto) 6.34 K/uL Lymphocytes # (Auto) 1.86 K/uL Monocytes # (Auto) 0.95 K/uL Eosinophils # (Auto) 0.12 K/uL Basophils # (Auto) 0.02 K/uL RDW Standard Deviation 43.6 fL RDW Coefficient of Variation 12.7 % Immature Granulocyte % (Auto) 0.1 % Immature Granulocyte # (Auto) 0.01 K/uL Sodium Level 142 mmol/L Potassium Level 3.8 mmol/L Chloride Level 103 mmol/L Carbon Dioxide Level 34 mmol/L Anion Gap 5.0 mmol/L Blood Urea Nitrogen 16 mg/dl Creatinine 0.95 mg/dl Est Creatinine Clear Calc Drug Dose 77.1 ml/min Estimated GFR () 105.5 Estimated GFR (Non- 91.0 BUN/Creatinine Ratio 16.4 Random Glucose 98 mg/dl Calcium Level 8.5 mg/dl Phosphorus Level 2.2 mg/dl Magnesium Level 2.1 mg/dl Hepatitis C Antibody Screen NEG Impression Patient is a 51 year old male with nausea/vomiting and upper abd pain that was relieved with the placement of an NG tube and suction. Imaging is consistent with a duodenal obstruction w/o specific mass. Differentials considered are tumor, stricture, Celiac Disease. Plan Plan: 1. EGD later today. 2. Further recommendations to follow EGD. 3. Will order Celiac Panel with tomorrow morning's labs. Attg addendum: I interviewed and examined pt, reviewed chart and labs. Pt with marked weight loss over the past 3 years, but denies chronic GI symptoms including early sat, bloating, rflux, n/v, abd pain. He was admitted yest with intractable n/v, and CT showed massively dilated stomach and duodenum. NGT drained > 5 litres. Now without complaints. On exam, abd is scaphoid, NGT no longer draining. + NSAID use. Will plan EGD/enteroscopy to look for source of SB obstruction.
[2017-05-11] MEDS ORDERED: SUCCINYLCHOLINE CHLORIDE 20 MG/ML 10 ML VIAL IV ONE (14:33)
[2017-05-11] MEDS ORDERED: LIDOCAINE HCL 2% 2 ML VIAL (20MG/ML) ONE (14:33)
[2017-05-11] MEDS ORDERED: PROPOFOL IV EMULSION 10 MG/ML 20 ML VIAL IV ONE (14:33)
[2017-05-11] MEDS ORDERED: DEXAMETHASONE SOD INJ 4 MG/ML VIAL ONE ×2 (14:33→15:40)
[2017-05-11] MEDS ORDERED: ONDANSETRON INJ 2 MG/ML 2 ML VIAL ONE (14:33)
[2017-05-11] MEDS ORDERED: FENTANYL CITRATE INJ 50 MCG/1 ML 2 ML VIAL ONE (14:34)
[2017-05-11] MEDS ORDERED: MIDAZOLAM HCL 1 MG/ML 2ML VIAL ONE (15:06)
[2017-05-11] MEDS ORDERED: FENTANYL CITRATE INJ 50 MCG/1 ML 2 ML VIAL IV PRN (15:45)
[2017-05-11] MEDS ORDERED: EpHEDrine SULFATE INJ 50 MG/ML AMP IV PRN (15:45)
[2017-05-11] MEDS ORDERED: PROMETHAZINE HCL INJ 12.5 MG in SODIUM CHLORIDE 0.9% 50ML 50 ML IV PRN (15:45)
[2017-05-11] MEDS ORDERED: ONDANSETRON INJ 2 MG/ML 2 ML VIAL IV PRN (15:45)
[2017-05-11] MEDS ORDERED: ATROPINE SULFATE 0.1 MG/ML 5ML SYR IV PRN (15:45)
--- NOTE | 2017-05-11 16:07 | Progress Note ---
Internal Med Progress Note Date of Service: May 11, 2017. Provider Documentation: SUBJECTIVE: The patient was seen and examined Admitted with High Grade SBO Much better this AM Going to have EGD this morning OBJECTIVE: Vital Signs-as noted below Exam: General-No distress at rest Eyes-Normal ENT-normal Neck-supple Lungs-Clear to ausucltate bilaterally Heart-Regular,no murmur appreciated Abdomen-Benign,soft,mildly tender in epigastrium,bowel sound present Extremities-No edema Neuro-AAOx3 Lab data as noted below. ASSESSMENT & PLAN: 51 yo prisoner on chronic mobic and baby aspirin presents with a high grade SBO [id number] of duodenal obstruction with the transition point at the third portion of the duodenum as it crosses the aorta.No Mass Improved after NGT placement. Some hematemesis noted but patient had been profusely vomiting overnight Placed on Protonix 40 IV BID. General Surgery has evaluated him and would like GI to weigh in, also. NPO Appreciate GI and Surgery evaluation EGD this AM Seizure history-switching PO dilantin to IV while NPO. Admitting physician discussed with pharmacist who recommended a 1:1 conversion of Anticonvulsant On 200 BID Hyperlipidemia-Lipitor on hold while NPO Hypokalemia-IV replacement ordered. Normalized DVT proph-SCDs in setting of hematemesis FULL CODE Dispo-to Med/Surg. Vital Signs: Date Time Temp Pulse Resp B/P (MAP) Pulse Ox O2 Delivery O2 Flow Rate FiO2 05/11/17 15:15 37.2 77 15 122/76 (91) 100 Room Air 05/11/17 08:14 37.0 88 16 109/70 95 Room Air 05/11/17 07:40 Room Air 05/11/17 07:22 37.0 88 16 109/70 (83) 95 Room Air 05/11/17 00:10 Room Air 05/10/17 22:58 37.2 88 15 115/77 (90) 95 Room Air 05/10/17 22:22 36.9 90 16 120/68 (85) 94 Room Air 05/10/17 17:03 98 Room Air 05/10/17 16:30 Room Air 05/10/17 16:15 37.1 83 16 120/76 (91) 98 Room Air Lab Results: Results Past 24 Hours Test 05/10/17 16:31 05/10/17 17:15 11/30/17 07:45 Range/Units Prothrombin Time 12.4 9.0-12.0 SECONDS Prothromb Time International Ratio 1.2 0.9-1.1 Phenytoin (Dilantin) Level 13.8 10-20 mcg/mL White Blood Count 9.30 4.8-10.8 K/uL Red Blood Count 4.07 4.7-6.1 M/uL Hemoglobin 12.7 14.0-18.0 g/dL Hematocrit 38.3 42-52 % Mean Corpuscular Volume 94.1 80-100 fL Mean Corpuscular Hemoglobin 31.2 25-34 pg Mean Corpuscular Hemoglobin Concent 33.2 32-36 g/dl Platelet Count 151 130-400 K/uL Mean Platelet Volume 9.4 7.4-10.4 fL Neutrophils (%) (Auto) 68.2 % Lymphocytes (%) (Auto) 20.0 % Monocytes (%) (Auto) 10.2 % Eosinophils (%) (Auto) 1.3 % Basophils (%) (Auto) 0.2 % Neutrophils # (Auto) 6.34 1.4-6.5 K/uL Lymphocytes # (Auto) 1.86 1.2-3.4 K/uL Monocytes # (Auto) 0.95 0.11-0.59 K/uL Eosinophils # (Auto) 0.12 0-0.5 K/uL Basophils # (Auto) 0.02 0-0.2 K/uL RDW Standard Deviation 43.6 36.4-46.3 fL RDW Coefficient of Variation 12.7 11.5-14.5 % Immature Granulocyte % (Auto) 0.1 % Immature Granulocyte # (Auto) 0.01 0.00-0.02 K/uL Sodium Level 142 136-145 mmol/L Potassium Level 3.8 3.5-5.1 mmol/L Chloride Level 103 98-107 mmol/L Carbon Dioxide Level 34 21-32 mmol/L Anion Gap 5.0 3-11 mmol/L Blood Urea Nitrogen 16 7-18 mg/dl Creatinine 0.95 0.60-1.40 mg/dl Est Creatinine Clear Calc Drug Dose 77.1 ml/min Estimated GFR () 105.5 Estimated GFR (Non- 91.0 BUN/Creatinine Ratio 16.4 10-20 Random Glucose 98 70-99 mg/dl Calcium Level 8.5 8.5-10.1 mg/dl Phosphorus Level 2.2 2.5-4.9 mg/dl Magnesium Level 2.1 1.8-2.4 mg/dl Hepatitis C Antibody Screen NEG NEG Microbiology Results 05/10/17 MRSA DNA Surveillance Screen - Final, Complete Specimen Negative for MRSA by DNA Probe
--- NOTE | 2017-05-11 16:12 | GI REPORT ---
Procedure Date: 05/11/2017 3:01 PM Procedure: Small bowel enteroscopy Indications: Abnormal CT of the GI tract Medicines: See the Anesthesia note for documentation of the administered medications Complications: No immediate complications. Estimated Blood Loss: Estimated blood loss: none. Procedure: Pre-Anesthesia Assessment: - ASA Grade Assessment: III - A patient with severe systemic disease. After obtaining informed consent, the endoscope was passed under direct vision. Throughout the procedure, the patient's blood pressure, pulse, and oxygen saturations were monitored continuously. The scope was introduced through the mouth, and advanced to the proximal jejunum. After obtaining informed consent, the endoscope was passed under direct vision. Throughout the procedure, the patient's blood pressure, pulse, and oxygen saturations were monitored continuously.The upper GI endoscopy was accomplished without difficulty. The patient tolerated the procedure well. Findings: LA Grade D (one or more mucosal breaks involving at least 75% of esophageal circumference) esophagitis with mild self limited oozing. Thre was a small amount of bilious fluid in the stomach. The stomach appeared boot shaped. The pylorus was patulous. The stomach mucosa was normal. Random biopsies done to check for Helicobacter. The duodenum was foreshortened. The proximal duodenum appeared mildly dilated. The mucosa of the entire small intestine appeared normal - there was no evidence of gastric outlet obstruction. Random biopsies done to check for sprue, and a clip was placed to lucrecia the distal extent of intubation. Impression: - LA Grade D reflux esophagitis. - No evidence of gastric outlet obstruction. Recommendation: - Discharge patient to floor. D/c NGT. Will request small bowel follow through to confirm the resolution of gastric outlet obstruction on CT. If SBFT normal, plan to resume normal diet. Reglan 5 mg IV BID and oral BID PPI. Mark Elder M.D. Mark Elder MD 05/11/2017 4:12:17 PM This report has been signed electronically. Note Initiated On: 05/11/2017 3:01 PM I attest to the content of the Intraoperative Record and orders documented therein, exceptions below
--- NOTE | 2017-05-11 16:43 | Anesthesiology Progress Note ---
Anesthesia Post Op Note Date & Time May 11, 2017 at 16:43 Vital Signs Pain Intensity: 0 Vital Signs Past 12 Hours Date Time Temp Pulse Resp B/P (MAP) Pulse Ox O2 Delivery O2 Flow Rate FiO2 05/11/17 16:34 61 16 100 05/11/17 16:34 62 16 05/11/17 16:34 61 16 100 05/11/17 16:34 62 16 05/11/17 16:31 131/76 05/11/17 16:31 131/76 05/11/17 16:31 36.9 61 16 131/76 100 Nasal Cannula 2 05/11/17 16:29 66 16 100 05/11/17 16:29 64 16 05/11/17 16:29 66 16 100 05/11/17 16:29 64 16 05/11/17 16:28 65 8 05/11/17 16:28 66 8 100 05/11/17 16:26 134/75 05/11/17 16:23 84 19 100 05/11/17 16:23 84 19 05/11/17 16:22 63 4 100 05/11/17 16:22 61 4 05/11/17 16:21 80 20 05/11/17 16:21 80 20 05/11/17 16:21 79 20 128/81 100 05/11/17 16:21 79 20 128/81 100 05/11/17 16:16 56 20 124/73 100 05/11/17 16:16 56 20 124/73 100 05/11/17 16:16 54 20 05/11/17 16:16 54 20 05/11/17 16:12 136/78 05/11/17 16:12 136/78 05/11/17 16:11 68 100 05/11/17 16:11 68 100 05/11/17 16:11 36.1 72 12 136/78 (82) 100 Oxymask 10 05/11/17 16:11 68 05/11/17 16:11 68 05/11/17 15:15 37.2 77 15 122/76 (91) 100 Room Air 05/11/17 08:14 37.0 88 16 109/70 95 Room Air 05/11/17 07:40 Room Air 05/11/17 07:22 37.0 88 16 109/70 (83) 95 Room Air Notes Mental Status: alert / awake / arousable, participated in evaluation Pt Amnestic to Procedure: Yes Nausea / Vomiting: adequately controlled Pain: adequately controlled Airway Patency, RR, SpO2: stable & adequate BP & HR: stable & adequate Hydration State: stable & adequate Anesthetic Complications: no major complications apparent Awake, doing well, no complaints. VSS. Ready for d/c
--- NOTE | 2017-05-11 17:34 | Progress Note ---
Progress Note Date of Service May 11, 2017. Progress Note EGD did not demonstrate gastric outlet obstruction NGT to be removed Patient not examine today, will follow-up in AM
[2017-05-11] MEDS: METOCLOPRAMIDE HCL INJ 5 MG/ML 2 ML VIAL IV SCH (21:18)
[2017-05-12 03:53] VITALS: BP 96/42; PULSE 78; TEMP 36.7; O2SAT 96
[2017-05-12 04:25] VITALS: BP 99/50
[2017-05-12] MEDS: D5NSS + 20MEQ KCL 1,000 ML IV SCH ×3 (05:54→18:39)
[2017-05-12 07:38] VITALS: BP 111/70; PULSE 68; TEMP 36.8; O2SAT 100
--- NOTE | 2017-05-12 07:45 | Surgery Progress Note ---
Surgery Progress Note Date of Service May 12, 2017. Subjective + feeling well (NG out ), + diet (had clears last night), No nausea Objective Vital Signs: Date Time Temp Pulse Resp B/P (MAP) Pulse Ox O2 Delivery O2 Flow Rate FiO2 05/12/17 07:38 36.8 68 16 111/70 (84) 100 Room Air 05/12/17 04:25 99/50 (66) 05/12/17 03:53 36.7 78 15 96/42 (60) 96 Room Air 05/11/17 23:35 Room Air 05/11/17 22:55 37.0 60 16 102/62 (75) 98 Room Air 05/11/17 20:27 36.8 60 18 128/68 (88) 98 Room Air 05/11/17 19:17 36.9 66 18 114/63 (80) 96 Room Air 05/11/17 18:13 36.6 68 18 128/73 (91) 98 Room Air 05/11/17 17:47 36.9 62 18 118/75 (89) 98 Room Air 05/11/17 17:30 98 Room Air 2.0 05/11/17 17:30 98 Room Air 05/11/17 17:20 36.9 62 16 133/81 (98) 98 Room Air 05/11/17 17:02 138/87 05/11/17 17:01 62 16 05/11/17 17:01 63 16 100 05/11/17 16:56 71 15 131/83 100 05/11/17 16:56 70 15 05/11/17 16:51 71 12 05/11/17 16:51 74 12 130/81 100 05/11/17 16:46 68 15 05/11/17 16:46 68 15 135/77 100 05/11/17 16:45 70 19 05/11/17 16:45 67 19 100 05/11/17 16:41 132/80 05/11/17 16:40 67 19 05/11/17 16:40 65 19 100 05/11/17 16:36 133/81 05/11/17 16:35 61 19 05/11/17 16:35 62 19 100 05/11/17 16:34 61 16 100 05/11/17 16:34 62 16 05/11/17 16:34 61 16 100 05/11/17 16:34 62 16 05/11/17 16:31 131/76 05/11/17 16:31 131/76 05/11/17 16:31 36.9 61 16 131/76 100 Nasal Cannula 2 05/11/17 16:29 66 16 100 05/11/17 16:29 64 16 05/11/17 16:29 66 16 100 05/11/17 16:29 64 16 05/11/17 16:28 65 8 05/11/17 16:28 66 8 100 05/11/17 16:26 134/75 05/11/17 16:23 84 19 100 05/11/17 16:23 84 19 05/11/17 16:22 63 4 100 05/11/17 16:22 61 4 05/11/17 16:21 80 20 05/11/17 16:21 80 20 05/11/17 16:21 79 20 128/81 100 05/11/17 16:21 79 20 128/81 100 05/11/17 16:16 56 20 124/73 100 05/11/17 16:16 56 20 124/73 100 05/11/17 16:16 54 20 05/11/17 16:16 54 20 05/11/17 16:12 136/78 05/11/17 16:12 136/78 05/11/17 16:11 68 100 05/11/17 16:11 68 100 05/11/17 16:11 36.1 72 12 136/78 (82) 100 Oxymask 10 05/11/17 16:11 68 05/11/17 16:11 68 05/11/17 15:15 37.2 77 15 122/76 (91) 100 Room Air 05/11/17 08:14 37.0 88 16 109/70 95 Room Air Abdomen: non tender, non distended, soft Laboratory Results: Results Past 24 Hours Test 05/11/17 07:45 Range/Units White Blood Count 9.30 4.8-10.8 K/uL Red Blood Count 4.07 4.7-6.1 M/uL Hemoglobin 12.7 14.0-18.0 g/dL Hematocrit 38.3 42-52 % Mean Corpuscular Volume 94.1 80-100 fL Mean Corpuscular Hemoglobin 31.2 25-34 pg Mean Corpuscular Hemoglobin Concent 33.2 32-36 g/dl Platelet Count 151 130-400 K/uL Mean Platelet Volume 9.4 7.4-10.4 fL Neutrophils (%) (Auto) 68.2 % Lymphocytes (%) (Auto) 20.0 % Monocytes (%) (Auto) 10.2 % Eosinophils (%) (Auto) 1.3 % Basophils (%) (Auto) 0.2 % Neutrophils # (Auto) 6.34 1.4-6.5 K/uL Lymphocytes # (Auto) 1.86 1.2-3.4 K/uL Monocytes # (Auto) 0.95 0.11-0.59 K/uL Eosinophils # (Auto) 0.12 0-0.5 K/uL Basophils # (Auto) 0.02 0-0.2 K/uL RDW Standard Deviation 43.6 36.4-46.3 fL RDW Coefficient of Variation 12.7 11.5-14.5 % Immature Granulocyte % (Auto) 0.1 % Immature Granulocyte # (Auto) 0.01 0.00-0.02 K/uL Sodium Level 142 136-145 mmol/L Potassium Level 3.8 3.5-5.1 mmol/L Chloride Level 103 98-107 mmol/L Carbon Dioxide Level 34 21-32 mmol/L Anion Gap 5.0 3-11 mmol/L Blood Urea Nitrogen 16 7-18 mg/dl Creatinine 0.95 0.60-1.40 mg/dl Est Creatinine Clear Calc Drug Dose 77.1 ml/min Estimated GFR () 105.5 Estimated GFR (Non- 91.0 BUN/Creatinine Ratio 16.4 10-20 Random Glucose 98 70-99 mg/dl Calcium Level 8.5 8.5-10.1 mg/dl Phosphorus Level 2.2 2.5-4.9 mg/dl Magnesium Level 2.1 1.8-2.4 mg/dl Hepatitis C Antibody Screen NEG NEG Assessment & Plan SBO/duodenal obstruction no evidence of gastric outlet obstruction on EGD SBFT today, advance diet as justin if negative
--- NOTE | 2017-05-12 10:18 | DIAGNOSTIC IMAGING REPORT ---
GI W/AIR SMALL BOWEL ROUTINE CLINICAL HISTORY: 51 years-old Male with GASTRIC DISTENTION. Acute gastric distention TECHNIQUE: A standard air contrast upper GI series was performed following administration of barium and effervescent crystals. Multiple spot fluoroscopic images were obtained and provided for review. COMPARISON STUDY: CT abdomen and pelvis 05/10/2017 FLUOROSCOPY TIME: 3.2 minutes. FINDINGS: The patient swallowed barium without difficulty. No aspiration was definitively visualized. The esophagus distended normally with barium and effervescent crystals. No strictures, mucosal ulcerations, or intraluminal mass lesions were identified involving the esophagus. There was mild gastroesophageal reflux. Barium was seen to flow freely through the gastroesophageal junction. Evaluation of the stomach demonstrates no gastric mucosal irregularity or filling defect.The duodenal bulb and sweep appear unremarkable. [employer] radiograph of the abdomen demonstrates multiple nondistended loops of air-filled small and large bowel scattered throughout the abdomen. Mildly prominent loops of small bowel are seen within the left midabdomen measuring up to 2.9 cm transversely. Surgical clip projects over the left midabdomen. Duodenum is again mildly dilated Transit to the large bowel occurred at approximately 30 minutes. Subsequently, spot fluoroscopic images of the abdomen were obtained and demonstrate freely movable bowel in all four abdominal quadrants. The terminal ileum appears unremarkable. IMPRESSION: 1. No evidence of bowel obstruction or focal bowel wall thickening. 2. Mild gastroesophageal reflux. 3. Mild nonspecific dilation of the duodenum without obstruction. The above report was generated using voice recognition software. It may contain grammatical, syntax or spelling errors. Electronically signed by: Mihir Mackay M.D. 05/12/2017 10:17 AM Dictated Date/Time: 05/12/2017 10:08 AM
[2017-05-12] MEDS: METOCLOPRAMIDE HCL INJ 5 MG/ML 2 ML VIAL IV SCH ×2 (10:22→14:09)
[2017-05-12] MEDS: PANTOprazole INJ 40 MG in SYRINGE 0 ML IV SCH (10:24)
[2017-05-12] MEDS: PHENYTOIN IV SCH (10:25)
--- NOTE | 2017-05-12 13:27 | Progress Note ---
Progress Note Date of Service May 12, 2017. Progress Note Pt without complaints. Abd is soft and ND. SBFT shows no obstruction. A/P: Gastric outlet obsruction or gastric ileus, now resolved. - Unclear etiology of his symptoms -- underlying SMA syndome? Would not pursue further w/u at present, but can adv diet as tolerated. OK for d/c if justin PO - - would cont Reglan 5 mg PO qHS for 1 week. Of note, Reglan may lower seizure threshold, but pt tells me that his sz d.o is well controlled, and he appears therapeutic on Dilantin. - He should take BID PPI for 2 weeks due to esophagitis; he may then d/c No need for GI f/u. Please call with questions.
--- NOTE | 2017-05-12 13:30 | Gastroenterology Progress Note ---
Progress Note Date of Service: May 12, 2017 Subjective Pt evaluation today including: conversation w/ patient, physical exam, chart review, lab review, review of studies, review of inpatient medication list Mr. Rosas is a 51-year-old male who was admitted with nausea vomiting and CT consistent with a duodenal obstruction. However EGD yesterday was without any obstruction and small bowel series was also normal. Patient is doing well today with a full liquid diet. He is pain-free. No nausea or vomiting. Review of Systems Constitutional: No fever Respiratory: No cough Cardiac: No chest pain Abdomen: No pain, No nausea, No vomiting, No diarrhea, No constipation, No GI bleeding Neuro: No memory loss Heme: No abnormal bleeding/bruising Endo: No fatigue Skin: No rash Medications Current Inpatient Medications Medications (Trade) Dose Ordered Sig/Dorothea Route Start Time Stop Time Status Last Admin Dose Admin Ondansetron HCl (Zofran Inj) 4 mg Q6H PRN IV 05/10/17 15:45 06/09/17 15:44 Acetaminophen 650 mg/Empty Bag 65 ml @ 260 mls/hr Q6H PRN IV 05/10/17 15:45 06/09/17 15:44 Potassium Chloride/Dextrose/ Sod Cl 1,000 ml @ 100 mls/hr Q10H IV 05/10/17 17:00 06/09/17 16:59 05/12/17 10:42 100 MLS/HR Pantoprazole Sodium 40 mg/ Syringe 10 ml @ 5 mls/min BID@0900,2100 IV 05/10/17 21:00 06/09/17 20:59 05/12/17 10:24 5 MLS/MIN Phenytoin Sodium 200 mg/Syringe 4 ml @ 1 mls/min BID IV 05/10/17 21:00 06/09/17 20:59 05/12/17 10:25 1 MLS/MIN Sodium Chloride 20 ml/Syringe 20 ml @ 0 mls/min Q12 IV 05/10/17 21:00 06/09/17 20:59 05/11/17 09:00 20 MLS/MIN Metoclopramide HCl (Reglan Inj) 5 mg TID IV 05/11/17 21:00 06/10/17 20:59 05/12/17 10:22 5 MG Objective Vital Signs Date Time Temp Pulse Resp B/P (MAP) Pulse Ox O2 Delivery O2 Flow Rate FiO2 05/12/17 07:38 36.8 68 16 111/70 (84) 100 Room Air 05/12/17 07:20 Room Air 05/12/17 04:25 99/50 (66) 05/12/17 03:53 36.7 78 15 96/42 (60) 96 Room Air 05/11/17 23:35 Room Air 05/11/17 22:55 37.0 60 16 102/62 (75) 98 Room Air 05/11/17 20:27 36.8 60 18 128/68 (88) 98 Room Air 05/11/17 19:17 36.9 66 18 114/63 (80) 96 Room Air 05/11/17 18:13 36.6 68 18 128/73 (91) 98 Room Air 05/11/17 17:47 36.9 62 18 118/75 (89) 98 Room Air 05/11/17 17:30 98 Room Air 2.0 05/11/17 17:30 98 Room Air 05/11/17 17:20 36.9 62 16 133/81 (98) 98 Room Air 05/11/17 17:02 138/87 05/11/17 17:01 62 16 05/11/17 17:01 63 16 100 05/11/17 16:56 71 15 131/83 100 05/11/17 16:56 70 15 05/11/17 16:51 71 12 05/11/17 16:51 74 12 130/81 100 05/11/17 16:46 68 15 05/11/17 16:46 68 15 135/77 100 05/11/17 16:45 70 19 05/11/17 16:45 67 19 100 05/11/17 16:41 132/80 05/11/17 16:40 67 19 05/11/17 16:40 65 19 100 05/11/17 16:36 133/81 05/11/17 16:35 61 19 05/11/17 16:35 62 19 100 05/11/17 16:34 61 16 100 05/11/17 16:34 62 16 05/11/17 16:34 61 16 100 05/11/17 16:34 62 16 05/11/17 16:31 131/76 05/11/17 16:31 131/76 05/11/17 16:31 36.9 61 16 131/76 100 Nasal Cannula 2 05/11/17 16:29 66 16 100 05/11/17 16:29 64 16 05/11/17 16:29 66 16 100 05/11/17 16:29 64 16 05/11/17 16:28 65 8 05/11/17 16:28 66 8 100 05/11/17 16:26 134/75 05/11/17 16:23 84 19 100 05/11/17 16:23 84 19 05/11/17 16:22 63 4 100 05/11/17 16:22 61 4 05/11/17 16:21 80 20 05/11/17 16:21 80 20 05/11/17 16:21 79 20 128/81 100 05/11/17 16:21 79 20 128/81 100 05/11/17 16:16 56 20 124/73 100 05/11/17 16:16 56 20 124/73 100 05/11/17 16:16 54 20 05/11/17 16:16 54 20 05/11/17 16:12 136/78 05/11/17 16:12 136/78 05/11/17 16:11 68 100 05/11/17 16:11 68 100 05/11/17 16:11 36.1 72 12 136/78 (82) 100 Oxymask 10 05/11/17 16:11 68 05/11/17 16:11 68 05/11/17 15:15 37.2 77 15 122/76 (91) 100 Room Air Physical Exam General Appearance: + thin (very) Neck: no JVD Respiratory/Chest: lungs clear Cardiovascular: regular rate, rhythm, no JVD, no murmur Abdomen: non tender, soft Extremities: no pedal edema Neurologic/Psych: alert, normal mood/affect, oriented x 3 Skin: normal color, no jaundice Assessment and Plan Mr. Rosas is a 51-year-old male who was admitted with nausea vomiting imaging was suggestive of a duodenal obstruction. This was ruled out with EGD and normal small bowel series. He may be predisposed to recurrent gastric outlet obstruction due to body habitus --- SMA syndrome? See attg note for plan details.
[2017-05-12 15:19] VITALS: BP 122/74; PULSE 65; TEMP 36.9; O2SAT 98
[2017-05-12 15:20] VITALS: O2SAT 98
--- NOTE | 2017-05-12 17:35 | Progress Note ---
Internal Med Progress Note Date of Service: May 12, 2017. Provider Documentation: SUBJECTIVE: The patient was seen and examined Admitted with High Grade SBO S/P negative EGD May Have SMA syndrome Denies any symptoms OBJECTIVE: Vital Signs-as noted below Exam: General-No distress at rest Eyes-Normal ENT-normal Neck-supple Lungs-Clear to ausucltate bilaterally Heart-Regular,no murmur appreciated Abdomen-Benign,soft,mildly tender in epigastrium,bowel sound present Extremities-No edema Neuro-AAOx3 Lab data as noted below. ASSESSMENT & PLAN: 51 yo prisoner on chronic mobic and baby aspirin presents with a high grade SBO [id number] of duodenal obstruction with the transition point at the third portion of the duodenum as it crosses the aorta.No Mass Improved after NGT placement. Some hematemesis noted but patient had been profusely vomiting overnight Placed on Protonix 40 IV BID. General Surgery has evaluated him and would like GI to weigh in, also. Appreciate GI and Surgery evaluation EGD -no acute findings May have SMA syndrome Has malnutrition Ensure TID,PPI bid and Reglan for 7 days Seizure history-switching PO Dilantin to IV while NPO. Admitting physician discussed with pharmacist who recommended a 1:1 conversion of Anticonvulsant On 200 BID Hyperlipidemia-Lipitor on hold while NPO Hypokalemia-IV replacement ordered. Normalized DVT proph-SCDs in setting of hematemesis FULL CODE Dispo-to Med/Surg. Vital Signs: Date Time Temp Pulse Resp B/P (MAP) Pulse Ox O2 Delivery O2 Flow Rate FiO2 05/12/17 15:20 98 Room Air 05/12/17 15:19 36.9 65 16 122/74 (90) 98 Room Air 05/12/17 07:38 36.8 68 16 111/70 (84) 100 Room Air 05/12/17 07:20 Room Air 05/12/17 04:25 99/50 (66) 05/12/17 03:53 36.7 78 15 96/42 (60) 96 Room Air 05/11/17 23:35 Room Air 05/11/17 22:55 37.0 60 16 102/62 (75) 98 Room Air 05/11/17 20:27 36.8 60 18 128/68 (88) 98 Room Air 05/11/17 19:17 36.9 66 18 114/63 (80) 96 Room Air 05/11/17 18:13 36.6 68 18 128/73 (91) 98 Room Air 05/11/17 17:47 36.9 62 18 118/75 (89) 98 Room Air
[2017-05-12] MEDS: BOOST PLUS VANILLA PO SCH ×2 (20:41)
[2017-05-12] MEDS: PHENYTOIN SODIUM ER 100 MG CAP PO SCH (20:42)
[2017-05-12] MEDS: PANTOprazole SOD 40 MG TAB PO SCH (20:42)
[2017-05-12] MEDS ORDERED: ATORVASTATIN 10 MG TAB PO SCH (21:00)
[2017-05-12] MEDS ORDERED: METOCLOPRAMIDE HCL INJ 5 MG/ML 2 ML VIAL IV SCH (21:00)
[2017-05-12] MEDS ORDERED: METOCLOPRAMIDE HCL 5 MG TAB PO SCH (21:00)
[2017-05-12] MEDS ORDERED: MIRTAZAPINE SOLTAB 15 MG PO SCH (21:00)
[2017-05-12] MEDS ORDERED: PHENYTOIN 50 MG CHEW PO SCH (21:00)
[2017-05-12 23:15] VITALS: BP 108/68; PULSE 65; TEMP 37; O2SAT 98
[2017-05-13] MEDS: D5NSS + 20MEQ KCL 1,000 ML IV SCH (04:14)
--- NOTE | 2017-05-13 06:49 | Surgery Progress Note ---
Surgery Progress Note Date of Service May 13, 2017. Subjective Post OP Day: HD 4 + feeling well, + flatus, + diet (clears), No complaints, No nausea, No vomiting Objective Vital Signs: Date Time Temp Pulse Resp B/P (MAP) Pulse Ox O2 Delivery O2 Flow Rate FiO2 05/12/17 23:15 Room Air 05/12/17 23:15 37.0 65 18 108/68 (81) 98 Room Air 05/12/17 15:20 98 Room Air 05/12/17 15:19 36.9 65 16 122/74 (90) 98 Room Air 05/12/17 07:38 36.8 68 16 111/70 (84) 100 Room Air 05/12/17 07:20 Room Air General Appearance: WD/WN, no apparent distress Head: normocephalic, atraumatic Neck: supple, trachea midline Respiratory/Chest: lungs clear Cardiovascular: regular rate, rhythm, no edema, no murmur Abdomen: normal bowel sounds, non tender, non distended, soft Extremities: non-tender, no pedal edema Assessment & Plan SBO -resolved -soft mechanical diet, advance as tolerated -will sign off -discharge per medical team
[2017-05-13 07:17] VITALS: BP 138/82; PULSE 52; TEMP 36.9; O2SAT 99
[2017-05-13] MEDS ORDERED: ASPIRIN 81 MG ECTAB PO SCH (09:00)
[2017-05-13] MEDS: PHENYTOIN SODIUM ER 100 MG CAP PO SCH (09:09)
[2017-05-13] MEDS: BOOST PLUS VANILLA PO SCH ×4 (09:09→14:11)
[2017-05-13] MEDS: PANTOprazole SOD 40 MG TAB PO SCH (09:10)
--- NOTE | 2017-05-13 11:34 | Progress Note ---
Internal Med Progress Note Date of Service: May 13, 2017. Provider Documentation: SUBJECTIVE: The patient was seen and examined Admitted with High Grade SBO S/P negative EGD May Have SMA syndrome Denies any symptoms Remains stable to be transferred to Nursing Home today OBJECTIVE: Vital Signs-as noted below Exam: General-No distress at rest Eyes-Normal ENT-normal Neck-supple Lungs-Clear to ausucltate bilaterally Heart-Regular,no murmur appreciated Abdomen-Benign,soft,mildly tender in epigastrium,bowel sound present Extremities-No edema Neuro-AAOx3 Lab data as noted below. ASSESSMENT & PLAN: 51 yo prisoner on chronic mobic and baby aspirin presents with a high grade SBO [id number] of duodenal obstruction with the transition point at the third portion of the duodenum as it crosses the aorta.No Mass Improved after NGT placement. Some hematemesis noted but patient had been profusely vomiting overnight Placed on Protonix 40 IV BID. General Surgery has evaluated him and would like GI to weigh in, also. Appreciate GI and Surgery evaluation EGD -no acute findings May have SMA syndrome Has malnutrition Ensure TID,PPI bid and Reglan for 7 days Much better to be diacharged Seizure history-switching PO Dilantin to IV while NPO. Admitting physician discussed with pharmacist who recommended a 1:1 conversion of Anticonvulsant On 200 BID Restarted on his Home regimen Hyperlipidemia-Lipitor on hold while NPO Will get his Statin as usual on discharge Hypokalemia-IV replacement ordered. Normalized DVT proph-SCDs in setting of hematemesis FULL CODE Dispo-to Med/Surg. Discharge today Vital Signs: Date Time Temp Pulse Resp B/P (MAP) Pulse Ox O2 Delivery O2 Flow Rate FiO2 05/13/17 07:30 Room Air 05/13/17 07:17 36.9 52 16 138/82 (100) 99 Room Air 05/12/17 23:15 Room Air 05/12/17 23:15 37.0 65 18 108/68 (81) 98 Room Air 05/12/17 15:20 98 Room Air 05/12/17 15:19 36.9 65 16 122/74 (90) 98 Room Air
[2017-05-13 12:30] LABS: HEMATOCRIT 36.9 % (42-52); MEAN CELL VOLUME 93.7 fL (80-100); MEAN CORPUSCULAR HEMOGLOBIN 32.2 pg (25-34); MEAN CORPUSCULAR HGB CONC 34.4 g/dl (32-36); MEAN PLATELET VOLUME 9.7 fL (7.4-10.4); PLATELET COUNT 141 K/uL (130-400); RED BLOOD COUNT 3.94 M/uL (4.7-6.1); WHITE BLOOD COUNT 6.31 K/uL (4.8-10.8)
[2017-05-13] MEDS ORDERED: Boost Plus Vanilla PO (12:48)
[2017-05-13] MEDS ORDERED: RGL/5 PO (12:48)
--- NOTE | 2017-05-13 12:49 | Discharge Instructions ---
Discharge Instructions Date of Service May 13, 2017. Admission Reason for Admission: SBO Discharge Discharge Diagnosis / Problem: High Grade SBO-Resolved Discharge Goals Goal(s): Prevent Disease Progression Activity Recommendations Activity Limitations: resume your previous activity . Instructions / Follow-Up Instructions / Follow-Up Follow up as SCI provider Current Hospital Diet Patient's current hospital diet: Regular Diet Discharge Diet Recommended Diet: Regular Diet Procedures Procedures Performed: Esophagogastroduodenoscopy, with biopsies Pending Studies Studies pending at discharge: no Medical Emergencies . Who to Call and When: Medical Emergencies: If at any time you feel your situation is an emergency, please call 911 immediately. . Non-Emergent Contact Non-Emergency issues call your: Primary Care Provider . Past History Medical & Surgical History: (1) SBO (small bowel obstruction) (2) Chronic back pain (3) Hyperlipidemia . "Provider Documentation" section prepared by Elvira Leone. . VTE Core Measure Inpt VTE Proph given/why not?: SCD's
[2017-05-13 12:53] VITALS: BP 138/82; PULSE 52; TEMP 36.9; O2SAT 99
[2017-05-13 12:59] LABS: BUN/CREATININE RATIO 9.8 (10-20); CALCIUM 8.6 mg/dl (8.5-10.1); CREATININE 0.71 mg/dl (0.60-1.40); MAGNESIUM 1.9 mg/dl (1.8-2.4); POTASSIUM 4.1 mmol/L (3.5-5.1)
--- NOTE | 2017-05-14 07:49 | Discharge Summary ---
Discharge Summary Date of Service May 14, 2017. Discharge Summary Admission Date: May 10, 2017 at 15:21 Discharge Date: May 13, 2017 Discharge Disposition: Home Principal Diagnosis: High Grade SBO-Resolved Secondary Diagnoses/Problems: Please see H&P and Hospital Progress note Consultations: GI and Surgery Medication Reconciliation New Medications: Metoclopramide HCl (Metoclopramide HCl) 5 Mg Tab 5 MG PO HS for 5 Days, #5 TAB [Boost Plus Vanilla] () 1 CAN LIQD 1 CAN PO TID for 30 Days, #90 Continued Medications: Aspirin (Aspirin Ec) 81 Mg Tab 81 MG PO DAILY Atorvastatin (Atorvastatin Calcium) 10 Mg Tab Mirtazapine Soltab (Remeron Soltab) 15 Mg Soltab 15 MG PO HS, TAB Pantoprazole (Protonix) 40 Mg Tab 40 MG PO DAILY, #30 TAB 2 times daily for 2 weeks and then 1 daily Phenytoin (Dilantin Chewable) 50 Mg Chw 50 MG PO HS, CHW Phenytoin Sodium (Dilantin) 100 Mg Cap 2 CAP PO BID, 3 Refills Discontinued Medications: Meloxicam (Mobic) 7.5 Mg Tab 15 MG PO DAILY, TAB Admission Information HPI (per Admitting provider): 51 yo M prisoner presents with abdominal pain and distention since yesterday shortly after eating some chili in the [place] [employer]. He began vomiting which was continuous overnight. His last BM was yesterday and he denies any abnormality to the stool. He denies any blood in stool. He denies a history of this type of abdominal pain in the past and denies any surgeries in the past. He is a prior [employer] user and prior heavy drinker, but is currently incarcerated. He reports using Mobic, ASA and Protonix regularly and has chronic back pain. He reports a h/o migraines and chronic back pain which are not currently present. He otherwise has no other symptoms at this time. In the ER a CT scan revealed a high grade small bowel obstruction and an NGT was placed with 4500 cc of fluid returned and reported hematemesis per ER provider. The patient subsequently is feeling well since the NGT was placed with no further abdominal distention and resolution of his abdominal pain. Past Medical/Surgical History Medical Problems: (1) Chronic back pain Status: Chronic (2) Hyperlipidemia Status: Chronic (3) Seizure Status: Resolved Denies a prior history of surgeries. Family History Patient reports no known family medical history. Social History Smoking Status: Current Every Day Smoker Smokeless Tobacco Use: Yes Alcohol Use: none Drug Use: none Marital Status: other Housing status: other Occupational Status: other Multi-Drug Resistant Organisms History of MDRO: No Allergies Coded Allergies: No Known Allergies (Unverified , 05/10/17) Home Medications Scheduled Aspirin (Aspirin Ec), 81 MG PO DAILY Meloxicam (Mobic), 15 MG PO DAILY Mirtazapine Soltab (Remeron Soltab), 15 MG PO HS Pantoprazole (Protonix), 40 MG PO DAILY Phenytoin (Dilantin Chewable), 50 MG PO HS Phenytoin Sodium (Dilantin), 2 CAP PO BID Miscellaneous Medications Atorvastatin (Atorvastatin Calcium) Review of Systems At least ten systems were reviewed and negative except as indicated in HPI. Physical Exam Vital Signs Date Time Temp Pulse Resp B/P (MAP) Pulse Ox O2 Delivery O2 Flow Rate FiO2 05/10/17 15:54 89 14 129/76 97 Room Air 05/10/17 14:22 79 18 151/99 99 Room Air 05/10/17 13:13 67 05/10/17 13:00 72 16 146/89 98 Room Air 05/10/17 12:13 70 18 144/87 99 Room Air 05/10/17 10:37 75 05/10/17 10:22 37.3 75 18 136/87 95 Room Air General Appearance: no apparent distress, + thin, + pertinent finding (NGT in place with dark vomitous in suction cannister. ) Head: normocephalic, atraumatic Eyes: normal inspection, PERRL, sclerae normal ENT: hearing grossly normal, pharynx normal Neck: supple, no JVD, trachea midline Respiratory/Chest: lungs clear, no respiratory distress, no accessory muscle use, + decreased breath sounds (clear but diminished) Cardiovascular: regular rate, rhythm, no edema, no gallop, no murmur, normal peripheral pulses Abdomen/GI: normal bowel sounds, non tender, soft Back: normal inspection Extremities/Musculoskelatal: normal inspection, no pedal edema, + pertinent finding (limited ability to test ROM as pt has leg shackles on ) Neurologic/Psych: corporate buyer II-XII nml as tested, no motor/sensory deficits, alert, normal mood/affect, oriented x 3 Skin: normal color, warm/dry, no rash Diagnostics Laboratory Results 05/10/17 11:25 Red Blood Count 4.67, Mean Corpuscular Volume 91.9, Mean Corpuscular Hemoglobin 31.9, Mean Corpuscular Hemoglobin Concent 34.7, Mean Platelet Volume 9.5, Neutrophils (%) (Auto) 85.9, Lymphocytes (%) (Auto) 7.4, Monocytes (%) (Auto) 6.3, Eosinophils (%) (Auto) 0.1, Basophils (%) (Auto) 0.1, Neutrophils # (Auto) 9.88, Lymphocytes # (Auto) 0.85, Monocytes # (Auto) 0.73, Eosinophils # (Auto) 0.01, Basophils # (Auto) 0.01 05/10/17 11:25 Test 05/10/17 11:25 05/10/17 14:20 05/10/17 16:02 White Blood Count 11.50 K/uL (4.8-10.8) Red Blood Count 4.67 M/uL (4.7-6.1) Hemoglobin 14.9 g/dL (14.0-18.0) Hematocrit 42.9 % (42-52) Mean Corpuscular Volume 91.9 fL (80-100) Mean Corpuscular Hemoglobin 31.9 pg (25-34) Mean Corpuscular Hemoglobin Concent 34.7 g/dl (32-36) Platelet Count 197 K/uL (130-400) Mean Platelet Volume 9.5 fL (7.4-10.4) Neutrophils (%) (Auto) 85.9 % Lymphocytes (%) (Auto) 7.4 % Monocytes (%) (Auto) 6.3 % Eosinophils (%) (Auto) 0.1 % Basophils (%) (Auto) 0.1 % Neutrophils # (Auto) 9.88 K/uL (1.4-6.5) Lymphocytes # (Auto) 0.85 K/uL (1.2-3.4) Monocytes # (Auto) 0.73 K/uL (0.11-0.59) Eosinophils # (Auto) 0.01 K/uL (0-0.5) Basophils # (Auto) 0.01 K/uL (0-0.2) RDW Standard Deviation 42.3 fL (36.4-46.3) RDW Coefficient of Variation 12.6 % (11.5-14.5) Immature Granulocyte % (Auto) 0.2 % Immature Granulocyte # (Auto) 0.02 K/uL (0.00-0.02) Anion Gap 4.0 mmol/L (3-11) Est Creatinine Clear Calc Drug Dose 82.3 ml/min Estimated GFR () 113.1 Estimated GFR (Non- 97.6 BUN/Creatinine Ratio 16.0 (10-20) Calcium Level 9.8 mg/dl (8.5-10.1) Total Bilirubin 0.5 mg/dl (0.2-1) Direct Bilirubin < 0.1 mg/dl (0-0.2) Aspartate Amino Transf (AST/SGOT) 29 U/L (15-37) Alanine Aminotransferase (ALT/SGPT) 26 U/L (12-78) Alkaline Phosphatase 180 U/L (45-117) Total Protein 8.5 gm/dl (6.4-8.2) Albumin 4.8 gm/dl (3.4-5.0) Lipase 289 U/L (73-393) Urine Color YELLOW Urine Appearance CLEAR (CLEAR) Urine pH >= 9.0 (4.5-7.5) Urine Specific [place] > 1.045 (1.000-1.030) Urine Protein NEG (NEG) Urine Glucose (UA) NEG (NEG) Urine Ketones NEG (NEG) Urine Occult Blood NEG (NEG) Urine Nitrite NEG (NEG) Urine Bilirubin NEG (NEG) Urine Urobilinogen NEG (NEG) Urine Leukocyte Esterase NEG (NEG) Urine WBC (Auto) 1-5 /hpf (0-5) Urine RBC (Auto) 0-4 /hpf (0-4) Urine Hyaline Casts (Auto) 1-5 /lpf (0-5) Urine Epithelial Cells (Auto) 10-20 /lpf (0-5) Urine Bacteria (Auto) NEG (NEG) Results Past 24 Hours Test 05/10/17 11:25 05/10/17 14:20 05/10/17 16:02 Range/Units White Blood Count 11.50 4.8-10.8 K/uL Red Blood Count 4.67 4.7-6.1 M/uL Hemoglobin 14.9 14.0-18.0 g/dL Hematocrit 42.9 42-52 % Mean Corpuscular Volume 91.9 80-100 fL Mean Corpuscular Hemoglobin 31.9 25-34 pg Mean Corpuscular Hemoglobin Concent 34.7 32-36 g/dl Platelet Count 197 130-400 K/uL Mean Platelet Volume 9.5 7.4-10.4 fL Neutrophils (%) (Auto) 85.9 % Lymphocytes (%) (Auto) 7.4 % Monocytes (%) (Auto) 6.3 % Eosinophils (%) (Auto) 0.1 % Basophils (%) (Auto) 0.1 % Neutrophils # (Auto) 9.88 1.4-6.5 K/uL Lymphocytes # (Auto) 0.85 1.2-3.4 K/uL Monocytes # (Auto) 0.73 0.11-0.59 K/uL Eosinophils # (Auto) 0.01 0-0.5 K/uL Basophils # (Auto) 0.01 0-0.2 K/uL RDW Standard Deviation 42.3 36.4-46.3 fL RDW Coefficient of Variation 12.6 11.5-14.5 % Immature Granulocyte % (Auto) 0.2 % Immature Granulocyte # (Auto) 0.02 0.00-0.02 K/uL Sodium Level 136 136-145 mmol/L Potassium Level 3.0 3.5-5.1 mmol/L Chloride Level 93 98-107 mmol/L Carbon Dioxide Level 39 21-32 mmol/L Anion Gap 4.0 3-11 mmol/L Blood Urea Nitrogen 14 7-18 mg/dl Creatinine 0.89 0.60-1.40 mg/dl Est Creatinine Clear Calc Drug Dose 82.3 ml/min Estimated GFR () 113.1 Estimated GFR (Non- 97.6 BUN/Creatinine Ratio 16.0 10-20 Random Glucose 137 70-99 mg/dl Calcium Level 9.8 8.5-10.1 mg/dl Total Bilirubin 0.5 0.2-1 mg/dl Direct Bilirubin < 0.1 0-0.2 mg/dl Aspartate Amino Transf (AST/SGOT) 29 15-37 U/L Alanine Aminotransferase (ALT/SGPT) 26 12-78 U/L Alkaline Phosphatase 180 45-117 U/L Total Protein 8.5 6.4-8.2 gm/dl Albumin 4.8 3.4-5.0 gm/dl Lipase 289 73-393 U/L Urine Color YELLOW Urine Appearance CLEAR CLEAR Urine pH >= 9.0 4.5-7.5 Urine Specific [place] > 1.045 1.000-1.030 Urine Protein NEG NEG Urine Glucose (UA) NEG NEG Urine Ketones NEG NEG Urine Occult Blood NEG NEG Urine Nitrite NEG NEG Urine Bilirubin NEG NEG Urine Urobilinogen NEG NEG Urine Leukocyte Esterase NEG NEG Urine WBC (Auto) 1-5 0-5 /hpf Urine RBC (Auto) 0-4 0-4 /hpf Urine Hyaline Casts (Auto) 1-5 0-5 /lpf Urine Epithelial Cells (Auto) 10-20 0-5 /lpf Urine Bacteria (Auto) NEG NEG Diagnostic Radiology ABDOMEN AND PELVIS CT WITH IV CONTRAST CT DOSE: 307.93 mGycm HISTORY: Nausea. Vomiting. diffuse abd pain TECHNIQUE: Multiaxial CT images of the abdomen and pelvis were performed following the use of intravenous contrast. A dose lowering technique was utilized adhering to the principles of ALARA. COMPARISON STUDY: None. FINDINGS: The lung bases are clear. No pneumoperitoneum. No pneumatosis. There is moderate thickening within the fluid filled mildly distended esophagus. There is periesophageal edema. There is a severely distended and fluid-filled stomach and proximal duodenum. There is abrupt caliber change at the third portion of the duodenum as it crosses the aorta. This is consistent with the transition point of the high-grade duodenal obstruction. No definite mass identified. The remaining small bowel is completely decompressed. The bladder is mildly distended. No retroperitoneal lymphadenopathy. The distended stomach and duodenum compresses the gallbladder. There is mild right hydronephrosis likely secondary to compression of the mid ureter from the distended proximal duodenum. The duodenum also compresses the IVC. The kidneys enhance normally. No hepatic or splenic masses. The pancreas is compressed by the distended stomach but appears to demonstrate normal enhancement. Mild dilatation of the distal main pancreatic duct measuring 4 mm. This could also be due to the distended duodenum. Trace right pleural effusion. IMPRESSION: 1. High-grade of duodenal obstruction with the transition point at the third portion of the duodenum as it crosses the aorta. There is no definite mass identified. Nasogastric tube is recommended to decompress the severely distended and fluid-filled stomach. The etiology of the obstruction is not clearly identified but could be due to an occult mass, stricture, or possibly a superior mesenteric artery syndrome given the location of the obstruction. Endoscopy is recommended for further evaluation. 2. Mildly distended distal esophagus which demonstrates moderate wall thickening and periesophageal edema. This could also be due to the long-standing obstruction. Esophageal tear is considered less likely given the lack of pneumomediastinum. 3. These findings were discussed with Dr. Guevara at 1:45 PM on 05/10/2017. EKG pending Impression Assessment and Plan 51 yo prisoner on chronic mobic and baby aspirin presents with a high grade SBO 1. SBO-improved after NGT placement. Some hematemesis noted but patient had been profusely vomiting overnight and likely has some irritation-placed on Protonix 40 IV BID. Apprec GI recs. He denied any h/o cirrhosis and there is no mention of changes consistent with cirrhosis on the CT scan today. NGT put out 4500cc of vomitus with great improvement in pain and distention per patient. Bowel sounds are present on exam and there is no TTP on exam. General Surgery has evaluated him and would like GI to weigh in, also. For now , continuing supportive care with NGT, pain control and antiemetics as needed, and IVF. NPO 2. Seizure history-switching PO dilantin to IV while NPO. I disucssed with pharmacist who recommended a 1:1 conversion so will give 200mg PO BID and adjust when the level returns. 3. Hyperlipidemia-Lipitor on hold while NPO 4. Hypokalemia-IV replacement ordered. DVT proph-SCDs in setting of hematemesis FULL CODE Dispo-to Med/Surg. Elissa Childress DO [facility] Med/Surg Resuscitation Status FULL RESUSCITATION VTE Prophylaxis VTE Risk Assessment Done? Y/N: Yes Risk Level: Moderate Given or contraindicated: SCD's <Electronically signed by Elissa Childress DO> Signed: 05/10/17 2570 Physical Exam (per Admitting): General Appearance: no apparent distress, + thin, + pertinent finding (NGT in place with dark vomitous in suction cannister. ) Head: normocephalic, atraumatic Eyes: normal inspection, PERRL, sclerae normal ENT: hearing grossly normal, pharynx normal Neck: supple, no JVD, trachea midline Respiratory/Chest: lungs clear, no respiratory distress, no accessory muscle use, + decreased breath sounds (clear but diminished) Cardiovascular: regular rate, rhythm, no edema, no gallop, no murmur, normal peripheral pulses Abdomen/GI: normal bowel sounds, non tender, soft Back: normal inspection Extremities/Musculoskelatal: normal inspection, no pedal edema, + pertinent finding (limited ability to test ROM as pt has leg shackles on ) Neurologic/Psych: corporate buyer II-XII nml as tested, no motor/sensory deficits, alert , normal mood/affect, oriented x 3 Skin: normal color, warm/dry, no rash Hospital Course 51 yo prisoner on chronic mobic and baby aspirin presents with a high grade SBO [id number] of duodenal obstruction with the transition point at the third portion of the duodenum as it crosses the aorta.No Mass Improved after NGT placement. Some hematemesis noted but patient had been profusely vomiting overnight Placed on Protonix 40 IV BID. General Surgery has evaluated him and would like GI to weigh in, also. Appreciate GI and Surgery evaluation EGD -no acute findings May have SMA syndrome Has malnutrition Ensure TID,PPI bid and Reglan for 7 days Much better to be diacharged Seizure history-switching PO Dilantin to IV while NPO. Admitting physician discussed with pharmacist who recommended a 1:1 conversion of Anticonvulsant On 200 BID Restarted on his Home regimen Hyperlipidemia-Lipitor on hold while NPO Will get his Statin as usual on discharge Hypokalemia-IV replacement ordered. Normalized DVT proph-SCDs in setting of hematemesis FULL CODE Dispo-to Med/Surg. Discharge today Total time spent on discharge = 35 minutes This includes examination of the patient, discharge planning, medication reconciliation, and communication with other providers. Discharge Instructions Date of Service May 13, 2017. Admission Reason for Admission: SBO Discharge Discharge Diagnosis / Problem: High Grade SBO-Resolved Discharge Goals Goal(s): Prevent Disease Progression Activity Recommendations Activity Limitations: resume your previous activity . Instructions / Follow-Up Instructions / Follow-Up Follow up as SCI provider Current Hospital Diet Patient's current hospital diet: Regular Diet Discharge Diet Recommended Diet: Regular Diet Procedures Procedures Performed: Esophagogastroduodenoscopy, with biopsies Pending Studies Studies pending at discharge: no Medical Emergencies . Who to Call and When: Medical Emergencies: If at any time you feel your situation is an emergency, please call 911 immediately. . Non-Emergent Contact Non-Emergency issues call your: Primary Care Provider . Past History Medical & Surgical History: (1) SBO (small bowel obstruction) (2) Chronic back pain (3) Hyperlipidemia . "Provider Documentation" section prepared by Elvira Leone. . VTE Core Measure Inpt VTE Proph given/why not?: SCD's <Electronically signed by Elvira Leone M.D.> Signed: 05/13/17 8340 Additional Copies To [facility]
== END 2017-05-13 14:50 | disposition home or self-care (01) | DRG 381 ==
LOC: C.EDC 10:24 → C.MSW 15:21 → ENRESERV 15:40
PROVIDERS: ADMIT Hospitalist; ATTEND Internal Medicine
PROC: 0DB68ZX Excision of Stomach, Via Natural or Artificial Opening Endoscopic, Diagnostic (ICD-10-PCS; principal; 2017-05-11 15:00)
DX: K31.5 Obstruction of duodenum (principal); K92.0 Hematemesis; E46 Unspecified protein-calorie malnutrition; K55.1 Chronic vascular disorders of intestine; E87.6 Hypokalemia; E78.5 Hyperlipidemia, unspecified; G40.909 Epilepsy, unspecified, not intractable, without status epilepticus; K20.9 Esophagitis, unspecified; M54.9 Dorsalgia, unspecified; G89.29 Other chronic pain; Z79.82 Long term (current) use of aspirin; Z79.899 Other long term (current) drug therapy; F17.200 Nicotine dependence, unspecified, uncomplicated

== ENCOUNTER 2017-05-18 11:40 | Inpatient (IN) | payer OTHER ==
[~2017-05-18] VITALS: Ht 177.8 cm; Wt 61.2 kg
[~2017-05-18 11:40] MED LIST: ASPI81TA28 PO; Boost Plus Vanilla PO; DLN100 PO; LPT10 PO; MIRT15TA2 PO; PANT40TA PO; PHEN50CH PO; RGL/5 PO
[2017-05-18] MEDS ORDERED: SODIUM CHLORIDE 0.9% 1000ML 1,000 ML IV STA (12:31)
[2017-05-18] MEDS ORDERED: ONDANSETRON INJ 2 MG/ML 2 ML VIAL IV STA (12:31)
[2017-05-18] MEDS ORDERED: OPTIRAY 320 IV PRN (13:30)
[2017-05-18 13:57] LABS: BASO % 0.1 %; BASO ABS # 0.01 K/uL (0-0.2); COMPLETE YES; HEMATOCRIT 47.9 % (42-52); IG% 0.3 %; LYMPH % 8.7 %; LYMPH ABS # 0.99 K/uL (1.2-3.4); MEAN CELL VOLUME 91.9 fL (80-100); MEAN CORPUSCULAR HEMOGLOBIN 31.9 pg (25-34); MEAN CORPUSCULAR HGB CONC 34.7 g/dl (32-36); MEAN PLATELET VOLUME 10.1 fL (7.4-10.4); MONO % 12.2 %; NEUT % 78.7 %; PLATELET COUNT 250 K/uL (130-400); RED BLOOD COUNT 5.21 M/uL (4.7-6.1); WHITE BLOOD COUNT 11.44 K/uL (4.8-10.8)
--- NOTE | 2017-05-18 14:04 | DIAGNOSTIC IMAGING REPORT ---
ABDOMEN 2VIEW W/PA CHEST RTN HISTORY: 51 years-old Male Vomiting, chest pain acute vomiting with chest pain COMPARISON: Upper GI series 05/12/2017, chest radiograph 05/10/2017, CT 05/10/2017 TECHNIQUE: AP view of the chest with supine and left lateral decubitus views of the abdomen FINDINGS: Cardiac mediastinal and hilar silhouettes are within normal limits. The patient is mildly rotated to the left. There is no pneumothorax, pleural effusion, focal airspace consolidation or overt pulmonary edema. Bones of the chest are grossly intact. There is marked distention of the stomach stomach and duodenum with so shaded air-fluid levels. No pneumoperitoneum identified. The remainder of the small and large bowel appears unremarkable. Moderate stool volume of the rectosigmoid. Linear 1.5 cm metallic density structure overlies the left hemipelvis. No urolith or organomegaly. Multilevel endplate spurring of the spine. IMPRESSION: 1. Marked distention of the stomach and duodenum redemonstrated with a similar pattern of disease from comparison CT dated 05/10/2017. 2. No pneumoperitoneum identified. 3. No acute cardiopulmonary process. The above report was generated using voice recognition software. It may contain grammatical, syntax or spelling errors. Electronically signed by: Mihir Mackay M.D. 05/18/2017 2:03 PM Dictated Date/Time: 05/18/2017 1:59 PM
--- NOTE | 2017-05-18 14:15 | DIAGNOSTIC IMAGING REPORT ---
ULTRASOUND RIGHT UPPER QUADRANT ABDOMEN CLINICAL HISTORY: Vomiting. Right upper quadrant abdominal pain. COMPARISON STUDY: Abdominal radiographs dated 05/18/2017. TECHNIQUE: Real-time, grayscale, and color flow sonography of the right upper quadrant of the abdomen was performed. Images are reviewed in the transverse and longitudinal planes. FINDINGS: Liver: The liver is normal in size and echotexture. There is no intrahepatic biliary ductal dilatation. The main portal vein is patent. Gallbladder: The gallbladder is normal in appearance. No gallstones are identified. There is no gallbladder wall thickening or pericholecystic fluid. A sonographic Abad's sign is reportedly absent. The common bile duct measures up to 0.3 cm in diameter. Pancreas: Not well visualized due to overlying bowel gas. Right kidney: Survey images of the right kidney demonstrate normal size and increased echotexture is suspected. There is no hydronephrosis. Ascites: None. IMPRESSION: 1. No acute sonographic abnormality is identified in the right upper quadrant. No gallstones are seen. 2. Survey images of the right kidney demonstrate increased cortical echotexture. Correlate clinically for evidence of medical renal disease. Electronically signed by: Ashvin Posey M.D. 05/18/2017 2:14 PM Dictated Date/Time: 05/18/2017 2:12 PM
[2017-05-18 14:16] LABS: ALT/SGPT 45 U/L (12-78); BLOOD UREA NITROGEN 42 mg/dl (7-18); BUN/CREATININE RATIO 14.8 (10-20); CALCIUM 10.7 mg/dl (8.5-10.1); CARBON DIOXIDE 39 mmol/L (21-32); CHLORIDE 84 mmol/L (98-107); CREATININE 2.81 mg/dl (0.60-1.40); GLUCOSE 154 mg/dl (70-99); MAGNESIUM 2.9 mg/dl (1.8-2.4); SODIUM 134 mmol/L (136-145)
[2017-05-18 14:20] LABS: ALB/GLOB RATIO 1.2 (0.9-2); AST/SGOT 36 U/L (15-37)
[2017-05-18 14:21] LABS: ALKALINE PHOSPHATASE 232 U/L (45-117)
--- NOTE | 2017-05-18 15:11 | DIAGNOSTIC IMAGING REPORT ---
ABDOMEN AND PELVIS CT WITH ORAL CONTRAST CT DOSE: 283.13 mGy.cm HISTORY: Acute vomiting with abdominal pain and distention. ARF, vomiting, abd pain TECHNIQUE: Multiaxial CT images of the abdomen and pelvis were performed following the use of oral contrast. A dose lowering technique was utilized adhering to the principles of ALARA. COMPARISON STUDY: Acute abdominal series radiographs of same day, upper GI series 05/12/2017, CT 05/10/2017. FINDINGS: Lung bases are generally clear. No pneumatosis or pneumoperitoneum. Imaged inferior cardiac chambers are unremarkable. Evaluation of the solid abdominal organs is limited without the use of IV contrast. Within the limitations of the study, the liver, gallbladder, spleen, pancreas and adrenal glands are unremarkable. Kidneys, ureters and prostate are unremarkable. Urinary bladder distention. Mild atherosclerosis of the aorta. No bulky adenopathy identified. Marked gastric distention is noted with fluid present within the distal esophagus. Stomach measures up to 34.5 cm in length extending from the diaphragm to the mid pelvis just above the urinary bladder. Additionally, there is marked distention involving the first and second portions of the duodenum with transitioned collapsed bowel again seen at the third portion of the duodenum as it crosses the aorta, image 199 series 3. The remainder of the duodenum, ileum and small bowel appears decompressed. Moderate sized stool ball of the rectosigmoid noted. There is a 1.6 cm metallic density structure within bowel of the left lower quadrant, image 354 series 3 which appears to be within a loop of ileum. Soft tissues are unremarkable. Bones appear intact. IMPRESSION: 1. Marked gastric and duodenal dilation with focal obstruction at the level of the third portion duodenum appears similar to comparison CT 05/10/2017. No obstructing mass or lesion identified. Differential considerations again would include occult neoplasm, superior mesenteric artery syndrome or stricture. Correlation with endoscopy recommended. 2. 1.6 cm metallic density structure of the left lower quadrant appears to be within a loop of distal ileum suggesting ingested foreign body. In retrospect this was present on the comparison upper GI series study and at that time was noted within the left upper abdomen. 3. No pneumoperitoneum. Electronically signed by: Mihir Mackay M.D. 05/18/2017 3:10 PM Dictated Date/Time: 05/18/2017 3:00 PM
--- NOTE | 2017-05-18 15:48 | EMERGENCY ROOM VISIT NOTE ---
History First contact with patient: 12:25 Chief Complaint: ABDOMINAL PAIN Stated Complaint: POSSIBLE BOWEL OBSTRUCTION Nursing Triage Summary: Pt arrived via ambulance ALS. Pt is a 51yr old male who is from [facility]. Pt was discharged from the hospital with a bowel obstruction. [facility] the pt has been vomiting several times a day. Vomit is green in color. Pt has been unable to eat or drink. Pt complains of upper abdominal quadrant pain. Pt has hypoactive bowel sounds in the left upper and lower quadrants. Pts last bowel movement was this morning. Pt states his bowel movement was soft, formed and brown. Pt is tender in upper abdominal quadrants bilat. History of Present Illness The patient is a 51 year old male who presents to the Emergency Room with complaints of "possible bowel obstruction". The pt. states that he was recently discharged from here. He states that since then he has been vomiting and unable to eat and drink. Has been vomiting green and dark light color. He states that his last movement was this morning it was soft, formed and brown. He notes pain in the chest and upper quadrant regions. He rates the pain is a 2 /10. He notes no blood in the bowel. Review of Systems A complete 10-point Review of Systems was discussed with the patient, with pertinent positives and negatives listed in the History of Present Illness. All remaining Review of Systems questions can be considered negative unless otherwise specified. Past Medical/Surgical History Medical Problems: (1) Chronic back pain (2) Hyperlipidemia (3) SBO (small bowel obstruction) (4) Seizure Family History Patient reports no known family medical history. Social History Smoking Status: Current Every Day Smoker Drug Use: none Marital Status: other Housing Status: other Occupation Status: other Current/Historical Medications Scheduled Aspirin (Aspirin Ec), 81 MG PO DAILY Atorvastatin (Atorvastatin Calcium), 10 MG PO HS Metoclopramide HCl (Metoclopramide HCl), 5 MG PO HS Mirtazapine Soltab (Remeron Soltab), 15 MG PO HS Pantoprazole (Protonix), 40 MG PO DAILY Phenytoin (Dilantin Chewable), 50 MG PO HS Phenytoin Sodium (Dilantin), 2 CAP PO BID [Boost Plus Vanilla], 1 CAN PO TID Allergies Coded Allergies: Phenobarbital (Verified Allergy, Severe, DIZZINESS AND FALLS DOWN, 05/18/17 ) Physical Exam Vital Signs Date Time Temp Pulse Resp B/P (MAP) Pulse Ox O2 Delivery O2 Flow Rate FiO2 05/18/17 15:15 83 20 137/98 98 Room Air 05/18/17 13:33 100 18 139/88 94 Room Air 05/18/17 12:49 97 Room Air 05/18/17 12:15 105 05/18/17 12:01 36.7 107 20 133/86 97 Room Air Physical Exam VITAL SIGNS - Vital signs and nursing notes were reviewed. Stable. GENERAL -51-year-old male appearing his stated age who is in no acute distress but does appear ill and is vomiting. Communicates well with provider and answers questions appropriately. SKIN - Without rashes. HEAD - NC/AT. EYES - PERRL with EOMI bilaterally. Sclera anicteric. EARS - No deformities of external structures noted on gross examination bilaterally. NOSE - Midline and without cyanosis. No epistaxis or purulent drainage noted. MOUTH/OROPHARYNX - Without perioral cyanosis. NECK - Neck with FROM. Supple to palpation. No nuchal rigidity. LUNGS - Chest wall symmetric without accessory muscle use, intercostals retractions, or central cyanosis. Normal vesicular breath sounds CTA B/L. No wheezes, rales, or rhonchi appreciated. CARDIAC - RRR with S1/S2. No murmur, rubs, or gallops appreciated. ABDOMEN - Abdominal contour normal without pulsations or visible masses. BS normoactive all four quadrants. RUQ abd tenderness noted. NO palpable masses, hepatosplenomegaly, or ascites noted. EXTREMITIES - No clubbing or peripheral cyanosis. No pretibial edema present. +5 /5 strength noted in UE/LE bilaterally. NEUROLOGIC - Cranial nerves II through XII grossly intact. Medical Decision & Procedures ER Provider Diagnostic Interpretation: ABDOMEN 2VIEW W/PA CHEST RTN HISTORY: 51 years-old Male Vomiting, chest pain acute vomiting with chest pain COMPARISON: Upper GI series 05/12/2017, chest radiograph 05/10/2017, CT 05/10/2017 TECHNIQUE: AP view of the chest with supine and left lateral decubitus views of the abdomen FINDINGS: Cardiac mediastinal and hilar silhouettes are within normal limits. The patient is mildly rotated to the left. There is no pneumothorax, pleural effusion, focal airspace consolidation or overt pulmonary edema. Bones of the chest are grossly intact. There is marked distention of the stomach stomach and duodenum with so shaded air-fluid levels. No pneumoperitoneum identified. The remainder of the small and large bowel appears unremarkable. Moderate stool volume of the rectosigmoid. Linear 1.5 cm metallic density structure overlies the left hemipelvis. No urolith or organomegaly. Multilevel endplate spurring of the spine. IMPRESSION: 1. Marked distention of the stomach and duodenum redemonstrated with a similar pattern of disease from comparison CT dated 05/10/2017. 2. No pneumoperitoneum identified. 3. No acute cardiopulmonary process. The above report was generated using voice recognition software. It may contain grammatical, syntax or spelling errors. Electronically signed by: Mihir Mackay M.D. 05/18/2017 2:03 PM Dictated Date/Time: 05/18/2017 1:59 PM ULTRASOUND RIGHT UPPER QUADRANT ABDOMEN CLINICAL HISTORY: Vomiting. Right upper quadrant abdominal pain. COMPARISON STUDY: Abdominal radiographs dated 05/18/2017. TECHNIQUE: Real-time, grayscale, and color flow sonography of the right upper quadrant of the abdomen was performed. Images are reviewed in the transverse and longitudinal planes. FINDINGS: Liver: The liver is normal in size and echotexture. There is no intrahepatic biliary ductal dilatation. The main portal vein is patent. Gallbladder: The gallbladder is normal in appearance. No gallstones are identified. There is no gallbladder wall thickening or pericholecystic fluid. A sonographic Abad's sign is reportedly absent. The common bile duct measures up to 0.3 cm in diameter. Pancreas: Not well visualized due to overlying bowel gas. Right kidney: Survey images of the right kidney demonstrate normal size and increased echotexture is suspected. There is no hydronephrosis. Ascites: None. IMPRESSION: 1. No acute sonographic abnormality is identified in the right upper quadrant. No gallstones are seen. 2. Survey images of the right kidney demonstrate increased cortical echotexture. Correlate clinically for evidence of medical renal disease. Electronically signed by: Ashvin Posey M.D. 05/18/2017 2:14 PM Dictated Date/Time: 05/18/2017 2:12 PM ABDOMEN AND PELVIS CT WITH ORAL CONTRAST CT DOSE: 283.13 mGy.cm HISTORY: Acute vomiting with abdominal pain and distention. ARF, vomiting, abd pain TECHNIQUE: Multiaxial CT images of the abdomen and pelvis were performed following the use of oral contrast. A dose lowering technique was utilized adhering to the principles of ALARA. COMPARISON STUDY: Acute abdominal series radiographs of same day, upper GI series 05/12/2017, CT 05/10/2017. FINDINGS: Lung bases are generally clear. No pneumatosis or pneumoperitoneum. Imaged inferior cardiac chambers are unremarkable. Evaluation of the solid abdominal organs is limited without the use of IV contrast. Within the limitations of the study, the liver, gallbladder, spleen, pancreas and adrenal glands are unremarkable. Kidneys, ureters and prostate are unremarkable. Urinary bladder distention. Mild atherosclerosis of the aorta. No bulky adenopathy identified. Marked gastric distention is noted with fluid present within the distal esophagus. Stomach measures up to 34.5 cm in length extending from the diaphragm to the mid pelvis just above the urinary bladder. Additionally, there is marked distention involving the first and second portions of the duodenum with transitioned collapsed bowel again seen at the third portion of the duodenum as it crosses the aorta, image 199 series 3. The remainder of the duodenum, ileum and small bowel appears decompressed. Moderate sized stool ball of the rectosigmoid noted. There is a 1.6 cm metallic density structure within bowel of the left lower quadrant, image 354 series 3 which appears to be within a loop of ileum. Soft tissues are unremarkable. Bones appear intact. IMPRESSION: 1. Marked gastric and duodenal dilation with focal obstruction at the level of the third portion duodenum appears similar to comparison CT 05/10/2017. No obstructing mass or lesion identified. Differential considerations again would include occult neoplasm, superior mesenteric artery syndrome or stricture. Correlation with endoscopy recommended. 2. 1.6 cm metallic density structure of the left lower quadrant appears to be within a loop of distal ileum suggesting ingested foreign body. In retrospect this was present on the comparison upper GI series study and at that time was noted within the left upper abdomen. 3. No pneumoperitoneum. Electronically signed by: Mihir Mackay M.D. 05/18/2017 3:10 PM Dictated Date/Time: 05/18/2017 3:00 PM Laboratory Results 05/18/17 13:30 Red Blood Count 5.21, Mean Corpuscular Volume 91.9, Mean Corpuscular Hemoglobin 31.9, Mean Corpuscular Hemoglobin Concent 34.7, Mean Platelet Volume 10.1, Neutrophils (%) (Auto) 78.7, Lymphocytes (%) (Auto) 8.7, Monocytes (%) (Auto) 12.2, Eosinophils (%) (Auto) 0.0, Basophils (%) (Auto) 0.1, Neutrophils # (Auto ) 9.02, Lymphocytes # (Auto) 0.99, Monocytes # (Auto) 1.39, Eosinophils # (Auto ) 0.00, Basophils # (Auto) 0.01 05/18/17 13:30 Test 05/18/17 13:30 White Blood Count 11.44 K/uL (4.8-10.8) Red Blood Count 5.21 M/uL (4.7-6.1) Hemoglobin 16.6 g/dL (14.0-18.0) Hematocrit 47.9 % (42-52) Mean Corpuscular Volume 91.9 fL (80-100) Mean Corpuscular Hemoglobin 31.9 pg (25-34) Mean Corpuscular Hemoglobin Concent 34.7 g/dl (32-36) Platelet Count 250 K/uL (130-400) Mean Platelet Volume 10.1 fL (7.4-10.4) Neutrophils (%) (Auto) 78.7 % Lymphocytes (%) (Auto) 8.7 % Monocytes (%) (Auto) 12.2 % Eosinophils (%) (Auto) 0.0 % Basophils (%) (Auto) 0.1 % Neutrophils # (Auto) 9.02 K/uL (1.4-6.5) Lymphocytes # (Auto) 0.99 K/uL (1.2-3.4) Monocytes # (Auto) 1.39 K/uL (0.11-0.59) Eosinophils # (Auto) 0.00 K/uL (0-0.5) Basophils # (Auto) 0.01 K/uL (0-0.2) RDW Standard Deviation 42.6 fL (36.4-46.3) RDW Coefficient of Variation 12.7 % (11.5-14.5) Immature Granulocyte % (Auto) 0.3 % Immature Granulocyte # (Auto) 0.03 K/uL (0.00-0.02) Anion Gap 11.0 mmol/L (3-11) Est Creatinine Clear Calc Drug Dose 26.3 ml/min Estimated GFR () 28.4 Estimated GFR (Non- 24.5 BUN/Creatinine Ratio 14.8 (10-20) Calcium Level 10.7 mg/dl (8.5-10.1) Magnesium Level 2.9 mg/dl (1.8-2.4) Total Bilirubin 0.4 mg/dl (0.2-1) Aspartate Amino Transf (AST/SGOT) 36 U/L (15-37) Alanine Aminotransferase (ALT/SGPT) 45 U/L (12-78) Alkaline Phosphatase 232 U/L (45-117) Troponin I < 0.015 ng/ml (0-0.045) Total Protein 10.2 gm/dl (6.4-8.2) Albumin 5.5 gm/dl (3.4-5.0) Globulin 4.7 gm/dl (2.5-4.0) Albumin/Globulin Ratio 1.2 (0.9-2) Lipase 325 U/L (73-393) Medications Administered Medications (Trade) Dose Ordered Sig/Dorothea Route Start Time Stop Time Status Last Admin Dose Admin Sodium Chloride 1,000 ml @ 999 mls/hr Q1H1M STAT IV 05/18/17 12:31 05/18/17 13:31 DC 05/18/17 12:31 999 MLS/HR Ondansetron HCl (Zofran Inj) 4 mg NOW STAT IV 05/18/17 12:31 05/18/17 12:33 DC 05/18/17 13:30 4 MG Medical Decision Patient was seen and evaluated as above. He presents to us today with vomiting and abdominal pain. Previous visit was reviewed. She was here for suspected small bowel obstruction. He appears ill on my exam. IV access was initiated, the above workup was performed. [place] radiographs were obtained and appear similar to previous. Decision was made to obtain a CT scan of the abdomen and pelvis as well as ultrasound of the gallbladder. Ultrasound was negative however does reveal what appears to be some change in the kidney on the right. CT scan reveals similar findings. The patient's creatinine was severely changed and he is now acute renal failure. Leukocytosis 11.4. No anemia. Metabolic panel reveals hypo-a treatment area, chloride and carbon dioxide decreased and elevated with BUN and creatinine severely elevated as noted. Magnesium high at 2.9. Troponin negative. I discussed on the patient I believe should be admitted for further evaluation and management however he will need multi specialty review upon his entrance into the hospital here. There are multiple underlying etiologies. The patient case was discussed with the attending physician and subsequently the hospitalist, Nesha Crooks PA-C. Please refer to further documentation regarding the patient's stay. In evaluation treatment the patient following differential diagnoses were entertained: Acute renal failure, small bowel obstruction, acute cholecystitis, pancreatic mass, cancer, SMA, mesenteric ischemia, among others. Impression Primary Impression: ARF (acute renal failure) Additional Impression: Vomiting Departure Information Dispostion Admitted as an inpatient Condition POOR Referrals Bianca MONTOYA (PCP) Patient Instructions [facility] Health Problem Qualifiers
[2017-05-18] MEDS ORDERED: ONDANSETRON INJ 2 MG/ML 2 ML VIAL IV PRN (16:00)
[2017-05-18 16:48] LABS: INR 1.1 (0.9-1.1); PARTIAL THROMBOPLASTIN RATIO 0.9; PROTHROMBIN TIME (PATIENT) 11.9 SECONDS (9.0-12.0)
[2017-05-18 17:59] VITALS: BP 123/86; PULSE 99; TEMP 36.9; O2SAT 97; Ht 177.8 cm; Wt 61.2 kg
[2017-05-18] MEDS ORDERED: PHENYTOIN IV ONE (18:00)
[2017-05-18] MEDS ORDERED: SODIUM CHLOR 0.9% 10ML FLUSH 20 ML in SYRINGE 0 ML IV ONE (18:00)
--- NOTE | 2017-05-18 20:05 | Progress Note ---
Medicine Progress Note Date & Time of Visit: May 18, 2017 at 20:05. Assessment & Plan Current Inpatient Medications: Current Inpatient Medications Medications (Trade) Dose Ordered Sig/Dorothea Route Start Time Stop Time Status Last Admin Dose Admin Ondansetron HCl (Zofran Inj) 4 mg Q6H PRN IV 05/18/17 16:00 06/17/17 15:59 Phenytoin Sodium 100 mg/Syringe 2 ml @ 1 mls/min Q6 IV 05/19/17 00:00 06/18/17 00:00 Sodium Chloride 20 ml/Syringe 20 ml @ 0 mls/min Q6 IV 05/19/17 00:00 06/18/17 00:00
--- NOTE | 2017-05-18 20:06 | History and Physical ---
History & Physical Date & Time of Service: May 18, 2017 at 20:06 . Chief Complaint: nausea, vomiting . Primary Care Physician: Bianca MONTOYA . History of Present Illness Source: patient, hospital records 51 YO male [facility]. History of dyslipidemia and seizure disorder. Admitted to [facility] 05/10/17 with acute nausea and vomiting. Had been taking meloxicam for back pain. CT of abdomen and pelvis demonstrated duodenal obstruction with transition point at the 3rd portion of the duodenum as it crossed the aorta. No masses identified. NGT placed. GI and General Surgery consulted. EGD 05/11/17 demonstrated reflux esophagitis, no ulcers, no gastric outlet obstruction. Small bowel enteroscopy 05/11/17 demonstrated dilatation of proximal duodenum, normal appearing mucosa. Small bowel follow-through 05/12/17 demonstrated mild MINNIE, mild dilation of duodenum, no obstruction. Diet advanced and returned to [facility] on 05/13/17. Developed recurrent nausea and vomiting. Vomiting several times a day. No hematemesis. No melena or hematochezia. Has some epigastric pain that is moderately severe, constant. Patient reports that he has lost weight, but is unable to say how much. . Past Medical/Surgical History Chronic and Resolved Medical Problems: (1) Chronic back pain Status: Chronic (2) Hyperlipidemia Status: Chronic (4) Seizure disorder Status: Chronic . Family History DM heart disease stroke . Social History Smoking Status: Current Every Day Smoker Alcohol Use: heavy consumption in past Drug Use: none Marital Status: other Housing status: other Occupational Status: other Multi-Drug Resistant Organisms History of MDRO: No Allergies Coded Allergies: Phenobarbital (Verified Allergy, Severe, DIZZINESS AND FALLS DOWN, 05/18/17 ) Home Medications Scheduled Aspirin (Aspirin Ec), 81 MG PO DAILY Atorvastatin (Atorvastatin Calcium), 10 MG PO HS Metoclopramide HCl (Metoclopramide HCl), 5 MG PO HS Mirtazapine Soltab (Remeron Soltab), 15 MG PO HS Pantoprazole (Protonix), 40 MG PO DAILY Phenytoin (Dilantin Chewable), 50 MG PO HS Phenytoin Sodium (Dilantin), 2 CAP PO BID [Boost Plus Vanilla], 1 CAN PO TID Review of Systems GI symptoms as noted in HPI. 10 systems reviewed and otherwise negative. . Physical Exam Vital Signs Date Time Temp Pulse Resp B/P (MAP) Pulse Ox O2 Delivery O2 Flow Rate FiO2 05/18/17 17:59 36.9 99 18 123/86 97 Room Air 05/18/17 15:15 83 20 137/98 98 Room Air 05/18/17 13:33 100 18 139/88 94 Room Air 05/18/17 12:49 97 Room Air 05/18/17 12:15 105 05/18/17 12:01 36.7 107 20 133/86 97 Room Air General Appearance: + mild distress, + cachetic Head: atraumatic Eyes: PERRL, EOMI, sclerae normal ENT: normal ENT inspection, hearing grossly normal, + pertinent finding (NGT draining bilious gastric fluid) Neck: supple, no adenopathy, thyroid normal, no JVD Respiratory/Chest: + pertinent finding (mild wheezing) Cardiovascular: regular rate, rhythm, no edema, no gallop, no JVD Abdomen/GI: + pertinent finding (scaphoid abodmen, mild epigastric tenderness without rebound or guarding, no palpable masses or organomegaly) Extremities/Musculoskelatal: normal inspection, no calf tenderness, no pedal edema Neurologic/Psych: alert, normal mood/affect, oriented x 3, + pertinent finding (PERRL, EOMI) Skin: normal color, warm/dry Lymphatic: no adenopathy (cervical) Diagnostics Laboratory Results Results Past 24 Hours Test 05/18/17 13:30 05/18/17 16:23 05/18/17 19:48 Range/Units White Blood Count 11.44 4.8-10.8 K/uL Red Blood Count 5.21 4.7-6.1 M/uL Hemoglobin 16.6 14.0-18.0 g/dL Hematocrit 47.9 42-52 % Mean Corpuscular Volume 91.9 80-100 fL Mean Corpuscular Hemoglobin 31.9 25-34 pg Mean Corpuscular Hemoglobin Concent 34.7 32-36 g/dl Platelet Count 250 130-400 K/uL Mean Platelet Volume 10.1 7.4-10.4 fL Neutrophils (%) (Auto) 78.7 % Lymphocytes (%) (Auto) 8.7 % Monocytes (%) (Auto) 12.2 % Eosinophils (%) (Auto) 0.0 % Basophils (%) (Auto) 0.1 % Neutrophils # (Auto) 9.02 1.4-6.5 K/uL Lymphocytes # (Auto) 0.99 1.2-3.4 K/uL Monocytes # (Auto) 1.39 0.11-0.59 K/uL Eosinophils # (Auto) 0.00 0-0.5 K/uL Basophils # (Auto) 0.01 0-0.2 K/uL RDW Standard Deviation 42.6 36.4-46.3 fL RDW Coefficient of Variation 12.7 11.5-14.5 % Immature Granulocyte % (Auto) 0.3 % Immature Granulocyte # (Auto) 0.03 0.00-0.02 K/uL Sodium Level 134 136-145 mmol/L Potassium Level 4.0 3.5-5.1 mmol/L Chloride Level 84 98-107 mmol/L Carbon Dioxide Level 39 21-32 mmol/L Anion Gap 11.0 3-11 mmol/L Blood Urea Nitrogen 42 7-18 mg/dl Creatinine 2.81 0.60-1.40 mg/dl Est Creatinine Clear Calc Drug Dose 26.3 ml/min Estimated GFR () 28.4 Estimated GFR (Non- 24.5 BUN/Creatinine Ratio 14.8 10-20 Random Glucose 154 70-99 mg/dl Calcium Level 10.7 8.5-10.1 mg/dl Magnesium Level 2.9 1.8-2.4 mg/dl Total Bilirubin 0.4 0.2-1 mg/dl Aspartate Amino Transf (AST/SGOT) 36 15-37 U/L Alanine Aminotransferase (ALT/SGPT) 45 12-78 U/L Alkaline Phosphatase 232 45-117 U/L Troponin I < 0.015 0-0.045 ng/ml Total Protein 10.2 6.4-8.2 gm/dl Albumin 5.5 3.4-5.0 gm/dl Globulin 4.7 2.5-4.0 gm/dl Albumin/Globulin Ratio 1.2 0.9-2 Lipase 325 73-393 U/L Prothrombin Time 11.9 9.0-12.0 SECONDS Prothromb Time International Ratio 1.1 0.9-1.1 Activated Partial Thromboplast Time 23.3 21.0-31.0 SECONDS Partial Thromboplastin Ratio 0.9 Phenytoin (Dilantin) Level 4.7 10-20 mcg/mL Bedside Glucose 135 70-99 mg/dl Diagnostic Radiology ABDOMEN 2VIEW W/PA CHEST RTN HISTORY: 51 years-old Male Vomiting, chest pain acute vomiting with chest pain COMPARISON: Upper GI series 05/12/2017, chest radiograph 05/10/2017, CT 05/10/2017 TECHNIQUE: AP view of the chest with supine and left lateral decubitus views of the abdomen FINDINGS: Cardiac mediastinal and hilar silhouettes are within normal limits. The patient is mildly rotated to the left. There is no pneumothorax, pleural effusion, focal airspace consolidation or overt pulmonary edema. Bones of the chest are grossly intact. There is marked distention of the stomach stomach and duodenum with so shaded air-fluid levels. No pneumoperitoneum identified. The remainder of the small and large bowel appears unremarkable. Moderate stool volume of the rectosigmoid. Linear 1.5 cm metallic density structure overlies the left hemipelvis. No urolith or organomegaly. Multilevel endplate spurring of the spine. IMPRESSION: 1. Marked distention of the stomach and duodenum redemonstrated with a similar pattern of disease from comparison CT dated 05/10/2017. 2. No pneumoperitoneum identified. 3. No acute cardiopulmonary process. The above report was generated using voice recognition software. It may contain grammatical, syntax or spelling errors. Electronically signed by: Mihir Mackay M.D. 05/18/2017 2:03 PM Dictated Date/Time: 05/18/2017 1:59 PM ULTRASOUND RIGHT UPPER QUADRANT ABDOMEN FINDINGS: Liver: The liver is normal in size and echotexture. There is no intrahepatic biliary ductal dilatation. The main portal vein is patent. Gallbladder: The gallbladder is normal in appearance. No gallstones are identified. There is no gallbladder wall thickening or pericholecystic fluid. A sonographic Abad's sign is reportedly absent. The common bile duct measures up to 0.3 cm in diameter. Pancreas: Not well visualized due to overlying bowel gas. Right kidney: Survey images of the right kidney demonstrate normal size and increased echotexture is suspected. There is no hydronephrosis. Ascites: None. IMPRESSION: 1. No acute sonographic abnormality is identified in the right upper quadrant. No gallstones are seen. 2. Survey images of the right kidney demonstrate increased cortical echotexture. Correlate clinically for evidence of medical renal disease. Electronically signed by: Ashvin Posey M.D. 05/18/2017 2:14 PM Dictated Date/Time: 05/18/2017 2:12 PM [address] AND PELVIS CT WITH ORAL CONTRAST FINDINGS: Lung bases are generally clear. No pneumatosis or pneumoperitoneum. Imaged inferior cardiac chambers are unremarkable. Evaluation of the solid abdominal organs is limited without the use of IV contrast. Within the limitations of the study, the liver, gallbladder, spleen, pancreas and adrenal glands are unremarkable. Kidneys, ureters and prostate are unremarkable. Urinary bladder distention. Mild atherosclerosis of the aorta. No bulky adenopathy identified. Marked gastric distention is noted with fluid present within the distal esophagus. Stomach measures up to 34.5 cm in length extending from the diaphragm to the mid pelvis just above the urinary bladder. Additionally, there is marked distention involving the first and second portions of the duodenum with transitioned collapsed bowel again seen at the third portion of the duodenum as it crosses the aorta, image 199 series 3. The remainder of the duodenum, ileum and small bowel appears decompressed. Moderate sized stool ball of the rectosigmoid noted. There is a 1.6 cm metallic density structure within bowel of the left lower quadrant, image 354 series 3 which appears to be within a loop of ileum. Soft tissues are unremarkable. Bones appear intact. IMPRESSION: 1. Marked gastric and duodenal dilation with focal obstruction at the level of the third portion duodenum appears similar to comparison CT 05/10/2017. No obstructing mass or lesion identified. Differential considerations again would include occult neoplasm, superior mesenteric artery syndrome or stricture. Correlation with endoscopy recommended. 2. 1.6 cm metallic density structure of the left lower quadrant appears to be within a loop of distal ileum suggesting ingested foreign body. In retrospect this was present on the comparison upper GI series study and at that time was noted within the left upper abdomen. 3. No pneumoperitoneum. Electronically signed by: Mihir Mackay M.D. 05/18/2017 3:10 PM Dictated Date/Time: 05/18/2017 3:00 PM . Impression Assessment and Plan NAUSEA / VOMITING Imaging now by CT demonstrates marked dilatation of stomach and duodenum. Apparent recurrent small bowel obstruction. Differential diagnosis per CT: occult neoplasm, SMA syndrome, stricture. Recent EGD and small bowel follow through did not demonstrate any apparent etiology of obstruction. NPO. NGT. Consult GI and General Surgery. ACUTE KIDNEY INJURY Serum creatinine 2.81 compared to baseline of 0.7-0.9. Acute kidney injury secondary to vomiting and poor PO fluid intake. IV fluids. Follow. WEIGHT LOSS Patient appears to be cachectic. He indicates that he has lost weight, but is unable to quantify. Weight loss may be due to GI pathology or other etiology. Follow. May need nutritional supplementation once GI symptoms allow. Further evaluation as necessary. DYSLIPIDEMIA Hold statin due to GI symptoms. SEIZURE DISORDER Phenytoin level subtherapeutic. IV phenytoin until able to resume oral therapy. VTE PROPHYLAXIS No anticoagulants due to possible need for invasive procedures. SCD's. DISPOSITION Expected return to [facility]. . Advanced Directives Existing Living Will: No Existing Power of Flight Agent: No VTE Prophylaxis VTE Risk Assessment Done? Y/N: Yes Risk Level: Moderate Given or contraindicated: SCD's
[2017-05-18] MEDS: D5W AND NSS 1,000 ML IV SCH (20:58)
[2017-05-18 23:02] VITALS: BP 122/87; PULSE 99; TEMP 36.6; O2SAT 97
[2017-05-18] MEDS: SODIUM CHLOR 0.9% 10ML FLUSH 20 ML in SYRINGE 0 ML IV SCH (23:40)
[2017-05-18] MEDS: PHENYTOIN IV 100 MG in SYRINGE 0 ML IV SCH (23:40)
[2017-05-19] VITALS: O2SAT 97
[2017-05-19] MEDS: D5W AND NSS 1,000 ML IV SCH (03:28)
[2017-05-19] MEDS: SODIUM CHLOR 0.9% 10ML FLUSH 20 ML in SYRINGE 0 ML IV SCH ×3 (06:05→18:08)
[2017-05-19] MEDS: PHENYTOIN IV 100 MG in SYRINGE 0 ML IV SCH ×3 (06:05→18:08)
[2017-05-19 06:34] VITALS: BP 112/78; PULSE 98; TEMP 36.6; O2SAT 97
[2017-05-19 06:40] LABS: URINE APPEARANCE CLEAR (CLEAR); URINE BILIRUBIN NEG (NEG); URINE COLOR DK YELLOW; URINE EPITHELIAL CELL AUTO 20-30 /lpf (0-5); URINE NITRITE NEG (NEG); URINE SPECIFIC GRAVITY 1.021 (1.000-1.030); UROBILINOGEN NEG (NEG); ZZUR CULT IF INDIC CLEAN CATCH NO
[2017-05-19 06:46] LABS: MANUAL MICROSCOPIC REQUIRED? NO; REVIEW REQ? YES
[2017-05-19 06:57] LABS: URINE MUCUS PRESENT (NONE PRSENT)
[2017-05-19 07:22] LABS: HEMATOCRIT 42.9 % (42-52); MEAN CELL VOLUME 93.7 fL (80-100); MEAN CORPUSCULAR HEMOGLOBIN 31.7 pg (25-34); MEAN CORPUSCULAR HGB CONC 33.8 g/dl (32-36); PLATELET COUNT 221 K/uL (130-400); RED BLOOD COUNT 4.58 M/uL (4.7-6.1); WHITE BLOOD COUNT 14.08 K/uL (4.8-10.8)
[2017-05-19 07:54] LABS: BUN/CREATININE RATIO 17.8 (10-20); CALCIUM 8.9 mg/dl (8.5-10.1); CREATININE 3.76 mg/dl (0.60-1.40); MAGNESIUM 2.9 mg/dl (1.8-2.4); POTASSIUM 3.2 mmol/L (3.5-5.1)
--- NOTE | 2017-05-19 08:42 | Medical Consult ---
Consultation Date of Consultation: May 19, 2017. Attending Physician: Ivan Figueroa M.D. Reason for Consultation: bowel obstruction History of Present Illness pt readmitted with duodenal/ gastric distention- d/c 05/13 after resolution of same now recurrent vomiting, dehydration, renal insufficiency- wt loss- 10-20 lbs over 2-3 mo had EGD, UGI/SBF last adm- no obstruction noted Past Medical/Surgical History Medical Problems: (1) ARF (acute renal failure) Status: Acute (2) Hypokalemia Status: Acute (3) Vomiting Status: Acute Family History Patient reports no known family medical history. Social History Smoking Status: Current Every Day Smoker Alcohol Use: heavy consumption in past Drug Use: none Marital Status: other Housing Status: other Occupation Status: other Allergies Coded Allergies: Phenobarbital (Verified Allergy, Severe, DIZZINESS AND FALLS DOWN, 05/18/17 ) Current Inpatient Medications Current Inpatient Medications Medications (Trade) Dose Ordered Sig/[place] Route Start Time Stop Time Status Last Admin Dose Admin Ondansetron HCl (Zofran Inj) 4 mg Q6H PRN IV 05/18/17 16:00 06/17/17 15:59 Phenytoin Sodium 100 mg/Syringe 2 ml @ 1 mls/min Q6 IV 05/19/17 00:00 06/18/17 00:00 05/19/17 06:05 1 MLS/MIN Sodium Chloride 20 ml/Syringe 20 ml @ 0 mls/min Q6 IV 05/19/17 00:00 06/18/17 00:00 05/19/17 06:05 20 MLS/MIN Famotidine 20 mg/ Syringe 5 ml @ 2.5 mls/min Q12H IV 05/19/17 09:00 06/18/17 08:59 Potassium Chloride/Sodium Chloride 1,000 ml @ 500 mls/hr Q2H IV 05/19/17 08:15 05/19/17 10:14 UNV Potassium Chloride/Dextrose/ Sod Cl 1,000 ml @ 200 mls/hr Q5H IV 05/19/17 10:30 06/18/17 10:29 UNV Review of Systems Constitutional: No fever, No chills Respiratory: No cough, No shortness of breath Cardiovascular: No chest pain Abdomen: + nausea, + vomiting, No pain Neurologic: + weakness Endocrine: + fatigue Integumentary: No rash Physical Exam Date Time Temp Pulse Resp B/P (MAP) Pulse Ox O2 Delivery O2 Flow Rate FiO2 05/19/17 06:34 36.6 98 19 112/78 (89) 97 Room Air 05/19/17 00:00 97 Room Air 05/18/17 23:02 36.6 99 18 122/87 (99) 97 Room Air 05/18/17 17:59 36.9 99 18 123/86 97 Room Air 05/18/17 15:15 83 20 137/98 98 Room Air 05/18/17 13:33 100 18 139/88 94 Room Air 05/18/17 12:49 97 Room Air 05/18/17 12:15 105 05/18/17 12:01 36.7 107 20 133/86 97 Room Air General Appearance: no apparent distress Head: atraumatic Eyes: sclerae normal Neck: supple Respiratory/Chest: lungs clear Cardiovascular: regular rate, rhythm Abdomen/GI: non tender, soft Laboratory Results Last 24 Hours Test 05/18/17 13:30 05/18/17 16:23 05/18/17 19:48 05/19/17 06:15 White Blood Count 11.44 K/uL Red Blood Count 5.21 M/uL Hemoglobin 16.6 g/dL Hematocrit 47.9 % Mean Corpuscular Volume 91.9 fL Mean Corpuscular Hemoglobin 31.9 pg Mean Corpuscular Hemoglobin Concent 34.7 g/dl Platelet Count 250 K/uL Mean Platelet Volume 10.1 fL Neutrophils (%) (Auto) 78.7 % Lymphocytes (%) (Auto) 8.7 % Monocytes (%) (Auto) 12.2 % Eosinophils (%) (Auto) 0.0 % Basophils (%) (Auto) 0.1 % Neutrophils # (Auto) 9.02 K/uL Lymphocytes # (Auto) 0.99 K/uL Monocytes # (Auto) 1.39 K/uL Eosinophils # (Auto) 0.00 K/uL Basophils # (Auto) 0.01 K/uL RDW Standard Deviation 42.6 fL RDW Coefficient of Variation 12.7 % Immature Granulocyte % (Auto) 0.3 % Immature Granulocyte # (Auto) 0.03 K/uL Sodium Level 134 mmol/L Potassium Level 4.0 mmol/L Chloride Level 84 mmol/L Carbon Dioxide Level 39 mmol/L Anion Gap 11.0 mmol/L Blood Urea Nitrogen 42 mg/dl Creatinine 2.81 mg/dl Est Creatinine Clear Calc Drug Dose 26.3 ml/min Estimated GFR () 28.4 Estimated GFR (Non- 24.5 BUN/Creatinine Ratio 14.8 Random Glucose 154 mg/dl Calcium Level 10.7 mg/dl Magnesium Level 2.9 mg/dl Total Bilirubin 0.4 mg/dl Aspartate Amino Transf (AST/SGOT) 36 U/L Alanine Aminotransferase (ALT/SGPT) 45 U/L Alkaline Phosphatase 232 U/L Troponin I < 0.015 ng/ml Total Protein 10.2 gm/dl Albumin 5.5 gm/dl Globulin 4.7 gm/dl Albumin/Globulin Ratio 1.2 Lipase 325 U/L Prothrombin Time 11.9 SECONDS Prothromb Time International Ratio 1.1 Activated Partial Thromboplast Time 23.3 SECONDS Partial Thromboplastin Ratio 0.9 Phenytoin (Dilantin) Level 4.7 mcg/mL Bedside Glucose 135 mg/dl Urine Color DK YELLOW Urine Appearance CLEAR Urine pH 7.0 Urine Specific [place] 1.021 Urine Protein 1+ Urine Glucose (UA) NEG Urine Ketones TRACE Urine Occult Blood NEG Urine Nitrite NEG Urine Bilirubin NEG Urine Urobilinogen NEG Urine Leukocyte Esterase TRACE Urine WBC (Auto) 1-5 /hpf Urine RBC (Auto) 0-4 /hpf Urine Hyaline Casts (Auto) 5-10 /lpf Urine Epithelial Cells (Auto) 20-30 /lpf Urine Bacteria (Auto) NEG Urine Crystals TALC Urine Pathogenic Casts /lpf Urine Mucus PRESENT Test 05/19/17 06:42 White Blood Count 14.08 K/uL Red Blood Count 4.58 M/uL Hemoglobin 14.5 g/dL Hematocrit 42.9 % Mean Corpuscular Volume 93.7 fL Mean Corpuscular Hemoglobin 31.7 pg Mean Corpuscular Hemoglobin Concent 33.8 g/dl RDW Standard Deviation 43.7 fL RDW Coefficient of Variation 12.8 % Platelet Count 221 K/uL Mean Platelet Volume 10.0 fL Sodium Level 142 mmol/L Potassium Level 3.2 mmol/L Chloride Level 92 mmol/L Carbon Dioxide Level 43 mmol/L Anion Gap 8.0 mmol/L Blood Urea Nitrogen 67 mg/dl Creatinine 3.76 mg/dl Est Creatinine Clear Calc Drug Dose 19.7 ml/min Estimated GFR () 20.0 Estimated GFR (Non- 17.3 BUN/Creatinine Ratio 17.8 Random Glucose 113 mg/dl Calcium Level 8.9 mg/dl Magnesium Level 2.9 mg/dl Assessment & Plan 05/19/17- adm with recurrent N/V, gastroduodenal distention- prior studies negative for mass or significant obstruction. Possibility of SMA syndrome - may need angio w/ contrast study and eventual surgery- Laparoscopic mobilization of ligament of treitz or more aggressive bypass surgery. I would not attempt this here- likely will need transfer to tertiary care center- not urgent- needs fluid/ electrolyte normalization. Discussed with Dr Figueroa- will follow with you. Ice for now.
[2017-05-19] MEDS: FAMOTIDINE IV INJ 20 MG in SYRINGE 3 ML IV SCH ×2 (09:00→21:48)
[2017-05-19] MEDS ORDERED: FAMOTIDINE IV INJ 20 MG in DEXTROSE 5% 100ML 100 ML IV SCH (09:00)
[2017-05-19] MEDS ORDERED: NSS + 20MEQ KCL 1000ML 1,000 ML IV SCH (09:15)
--- NOTE | 2017-05-19 09:24 | Gastrointestinal Consultation ---
Gastrointestinal Consultation Date of Consultation: May 19, 2017 Attending Physician: Henry Consulting Physician: Pop Reason for Consultation: abnormal imaging, SBO History of Present Illness Patient is a 51 year old male w/ history below who was admitted through the ED for nausea/vomiting, history of SBO. Pt was seen and evaluated, chart reviewed. He was recently admitted through the ED about one week ago for N/V and upper abd pain that was relieved with the placement of an NG tube and suction, imaging is consistent with a duodenal obstruction w/o specific mass. He is s/p small bowel enteroscopy and small bowel follow through without any mass, lesion or obstruction noted. His symptoms improved and he was discharged back to [facility]. He notes about one-two days after discharge, his abdominal pain and nausea returned. He notes he self induced vomiting several times a day to relieve his symptoms. No hematemesis or coffee ground emesis. Notes his abd pain and nausea was relieved after vomiting, but would return quickly. Was brought back to ED, imaging suggestive of obstruction at the duodenum, similar in appearance to CT on 05/10/17. NG was placed w/ 3500 output. He notes significant improvement of his symptoms. Last BM was two days ago, no black or bloody stools. He notes he weight over 200 lbs about one year ago and has lost over 80lb. Non-intentional. Denies ingestion of foreign body. Suggests weight loss of 20-30 lbs over the past few months. Today, no fever, chills, CP, SOB. KUB 05/18/17: Marked distention of the stomach and duodenum re-demonstrated with a similar pattern of disease from comparison CT dated 05/10/2017. No pneumoperitoneum identified. No acute cardiopulmonary process RUQ US 05/18/17: No acute sonographic abnormality is identified in the right upper quadrant. No gallstones are seen. Survey images of the right kidney demonstrate increased cortical echotexture. Correlate clinically for evidence of medical renal disease. CT ABD 05/18/17: Marked gastric and duodenal dilation with focal obstruction at the level of the third portion duodenum appears similar to comparison CT 2016. No obstructing mass or lesion identified. Differential considerations again would include occult neoplasm, superior mesenteric artery syndrome or stricture. Correlation with endoscopy recommended. 1.6 cm metallic density structure of the left lower quadrant appears to be within a loop of distal ileum suggesting ingested foreign body. In retrospect this was present on the comparison upper GI series study and at that time was noted within the left upper abdomen. No pneumoperitoneum. EGD 05/11/17: reflux esophagitis, no ulcers, no gastric outlet obstruction. Small bowel enteroscopy 05/11/17: dilatation of proximal duodenum, normal appearing mucosa. Small bowel follow-through 05/12/17: mild MINNIE, mild dilation of duodenum, no obstruction. Past Medical/Surgical History Medical Problems: (1) ARF (acute renal failure) Status: Acute (2) Hypokalemia Status: Acute (3) Vomiting Status: Acute Past Medical History: Chronic back pain, Hyperlipidemia, Seizure, SBO Past Surgical History: EGD x 2 Family History Patient reports no known family medical history. Social History Smoking Status: Current Every Day Smoker Drug Use: none Marital Status: other Housing Status: other Occupation Status: other Allergies Coded Allergies: Phenobarbital (Verified Allergy, Severe, DIZZINESS AND FALLS DOWN, 05/18/17 ) Current Medications Home Meds and Scripts Medications Dose Route/Sig Max Daily Dose Days Date Category Dose Instructions Metoclopramide HCl 5 Mg Tab 5 Mg PO HS 5 05/13/17 Rx [Boost Plus Vanilla] 1 CAN Liqd 1 Can PO TID 30 05/13/17 Rx Dilantin (Phenytoin Sodium) 100 Mg Cap 2 Cap PO BID 05/10/17 Reported Dilantin Chewable (Phenytoin) 50 Mg Chw 50 Mg PO HS 05/10/17 Reported Protonix (Pantoprazole Sodium) 40 Mg Tab 40 Mg PO DAILY 05/10/17 Reported 2 times daily for 2 weeks and then 1 daily Remeron Soltab (Mirtazapine) 15 Mg Soltab 15 Mg PO HS 05/10/17 Reported Atorvastatin Calcium (Atorvastatin) 10 Mg Tab 10 Mg PO HS 05/10/17 Reported Aspirin Ec (Aspirin) 81 Mg Tab 81 Mg PO DAILY 05/10/17 Reported Review of Systems Constitutional: No fever, No chills Respiratory: No cough Cardiac: No chest pain Abdomen: + pain, + nausea, + constipation, No vomiting, No diarrhea Physical Exam Date Time Temp Pulse Resp B/P (MAP) Pulse Ox O2 Delivery O2 Flow Rate FiO2 05/19/17 06:34 36.6 98 19 112/78 (89) 97 Room Air 05/19/17 00:00 97 Room Air 05/18/17 23:02 36.6 99 18 122/87 (99) 97 Room Air 05/18/17 17:59 36.9 99 18 123/86 97 Room Air 05/18/17 15:15 83 20 137/98 98 Room Air 05/18/17 13:33 100 18 139/88 94 Room Air 05/18/17 12:49 97 Room Air 05/18/17 12:15 105 05/18/17 12:01 36.7 107 20 133/86 97 Room Air General Appearance: + thin, + pertinent finding (NG inp lace) Eyes: PERRL ENT: hearing grossly normal Neck: supple Respiratory/Chest: lungs clear Cardiovascular: regular rate, rhythm Abdomen: non tender, soft, no organomegaly, no pulsatile mass, + pertinent finding (very thin) Neurologic/Psych: alert, normal mood/affect, oriented x 3 Skin: normal color Laboratory Results Last 24 Hours Test 05/18/17 13:30 05/18/17 16:23 05/18/17 19:48 05/19/17 06:15 White Blood Count 11.44 K/uL Red Blood Count 5.21 M/uL Hemoglobin 16.6 g/dL Hematocrit 47.9 % Mean Corpuscular Volume 91.9 fL Mean Corpuscular Hemoglobin 31.9 pg Mean Corpuscular Hemoglobin Concent 34.7 g/dl Platelet Count 250 K/uL Mean Platelet Volume 10.1 fL Neutrophils (%) (Auto) 78.7 % Lymphocytes (%) (Auto) 8.7 % Monocytes (%) (Auto) 12.2 % Eosinophils (%) (Auto) 0.0 % Basophils (%) (Auto) 0.1 % Neutrophils # (Auto) 9.02 K/uL Lymphocytes # (Auto) 0.99 K/uL Monocytes # (Auto) 1.39 K/uL Eosinophils # (Auto) 0.00 K/uL Basophils # (Auto) 0.01 K/uL RDW Standard Deviation 42.6 fL RDW Coefficient of Variation 12.7 % Immature Granulocyte % (Auto) 0.3 % Immature Granulocyte # (Auto) 0.03 K/uL Sodium Level 134 mmol/L Potassium Level 4.0 mmol/L Chloride Level 84 mmol/L Carbon Dioxide Level 39 mmol/L Anion Gap 11.0 mmol/L Blood Urea Nitrogen 42 mg/dl Creatinine 2.81 mg/dl Est Creatinine Clear Calc Drug Dose 26.3 ml/min Estimated GFR () 28.4 Estimated GFR (Non- 24.5 BUN/Creatinine Ratio 14.8 Random Glucose 154 mg/dl Calcium Level 10.7 mg/dl Magnesium Level 2.9 mg/dl Total Bilirubin 0.4 mg/dl Aspartate Amino Transf (AST/SGOT) 36 U/L Alanine Aminotransferase (ALT/SGPT) 45 U/L Alkaline Phosphatase 232 U/L Troponin I < 0.015 ng/ml Total Protein 10.2 gm/dl Albumin 5.5 gm/dl Globulin 4.7 gm/dl Albumin/Globulin Ratio 1.2 Lipase 325 U/L Prothrombin Time 11.9 SECONDS Prothromb Time International Ratio 1.1 Activated Partial Thromboplast Time 23.3 SECONDS Partial Thromboplastin Ratio 0.9 Phenytoin (Dilantin) Level 4.7 mcg/mL Bedside Glucose 135 mg/dl Urine Color DK YELLOW Urine Appearance CLEAR Urine pH 7.0 Urine Specific [place] 1.021 Urine Protein 1+ Urine Glucose (UA) NEG Urine Ketones TRACE Urine Occult Blood NEG Urine Nitrite NEG Urine Bilirubin NEG Urine Urobilinogen NEG Urine Leukocyte Esterase TRACE Urine WBC (Auto) 1-5 /hpf Urine RBC (Auto) 0-4 /hpf Urine Hyaline Casts (Auto) 5-10 /lpf Urine Epithelial Cells (Auto) 20-30 /lpf Urine Bacteria (Auto) NEG Urine Crystals TALC Urine Pathogenic Casts /lpf Urine Mucus PRESENT Test 05/19/17 06:42 White Blood Count 14.08 K/uL Red Blood Count 4.58 M/uL Hemoglobin 14.5 g/dL Hematocrit 42.9 % Mean Corpuscular Volume 93.7 fL Mean Corpuscular Hemoglobin 31.7 pg Mean Corpuscular Hemoglobin Concent 33.8 g/dl RDW Standard Deviation 43.7 fL RDW Coefficient of Variation 12.8 % Platelet Count 221 K/uL Mean Platelet Volume 10.0 fL Sodium Level 142 mmol/L Potassium Level 3.2 mmol/L Chloride Level 92 mmol/L Carbon Dioxide Level 43 mmol/L Anion Gap 8.0 mmol/L Blood Urea Nitrogen 67 mg/dl Creatinine 3.76 mg/dl Est Creatinine Clear Calc Drug Dose 19.7 ml/min Estimated GFR () 20.0 Estimated GFR (Non- 17.3 BUN/Creatinine Ratio 17.8 Random Glucose 113 mg/dl Calcium Level 8.9 mg/dl Magnesium Level 2.9 mg/dl Impression Patient is a 51 year old male readmitted a week after discharge for recurrent SBO. Imaging suggestive of duodenal obstruction, ruled out w/ small [place] enteroscopy and small bowel follow though without mass, stricture, obstruction identified. There is question if he may be predisposed to recurrent gastric outlet obstruction due to body habitus, SMA syndrome. He notes unintentional weight loss of over 80 lbs in the past year. He has never had a colonoscopy that he recalls. Plan Management of SBO per surgery - NG to intermittent suction - NPO for bowel rest - IVF hydration - antiemetics prn - analgesia PRN - daily KUB for both SBO and foreign body Unintentional weight loss - EGD complete - CT abd/pelvis complete - Can arrange colonoscopy at appointment to be scheduled - will need resolution of SBO to tolerate prep GI to follow. Please call with any questions or concern I saw and evaluated the patient. Gastro neurology as consult at for evaluation of a suspected small bowel obstruction. The patient had a recent upper endoscopy and enteroscopy performed by Dr. Elder without any specific findings. He was seen by general surgery who wonders if he may have evidence of superior mesenteric artery syndrome given a recent history of weight loss. Physical examination No obvious distress No scleral icterus NG tube in place Impression: Patient with a history of recurrent small bowel obstruction with a question of SMA syndrome. At this time I would suggest consideration of an MR angiography and perhaps referral to a tertiary center for evaluation by a vascular surgery service. The patient may also benefit from a colonoscopy once his bowel obstruction has resolved. This would also be useful for evaluation of the question of a metal finding in the distal terminal ileum Recommendations Continue NG tube suction Continue IV hydration Daily KUB Management of SBO per general surgery Please call with any questions or concerns Colonoscopy to be arranged when medically feasible
[2017-05-19] MEDS: D5W AND 1/2NSS + 40MEQ KCL 1,000 ML IV SCH ×3 (11:46→22:53)
[2017-05-19 15:39] VITALS: BP 124/78; PULSE 77; TEMP 36.8; O2SAT 99
[2017-05-19 18:11] LABS: BUN/CREATININE RATIO 24.7 (10-20); CALCIUM 8.3 mg/dl (8.5-10.1); CREATININE 2.11 mg/dl (0.60-1.40); POTASSIUM 4.1 mmol/L (3.5-5.1)
--- NOTE | 2017-05-19 21:54 | Progress Note ---
Medicine Progress Note Date & Time of Visit: May 19, 2017 at 12:35 . Subjective Feels better. Less abdominal pain. No nausea or vomiting. No fever. No chest pain. No cough or SOB. . Objective Last 8 Hrs Date Time Temp Pulse Resp B/P (MAP) Pulse Ox O2 Delivery O2 Flow Rate FiO2 05/19/17 16:00 Room Air 05/19/17 15:39 36.8 77 20 124/78 (93) 99 Room Air Physical Exam: General- cachetic, no distress Eyes- anicteric ENT- NGT Lungs- clear; no respiratory distress Heart- RRR, no gallop; no JVD; no edema Abdomen- scaphoid; + BS; soft, nontender Extremities- no cyanosis; no clubbing; no calf tenderness Skin- warm & dry Neuro- alert . Laboratory Results: Last 24 Hours Test 05/19/17 06:15 05/19/17 06:42 05/19/17 17:28 Urine Color DK YELLOW Urine Appearance CLEAR Urine pH 7.0 Urine Specific Rinard 1.021 Urine Protein 1+ Urine Glucose (UA) NEG Urine Ketones TRACE Urine Occult Blood NEG Urine Nitrite NEG Urine Bilirubin NEG Urine Urobilinogen NEG Urine Leukocyte Esterase TRACE Urine WBC (Auto) 1-5 /hpf Urine RBC (Auto) 0-4 /hpf Urine Hyaline Casts (Auto) 5-10 /lpf Urine Epithelial Cells (Auto) 20-30 /lpf Urine Bacteria (Auto) NEG Urine Crystals TALC Urine Pathogenic Casts /lpf Urine Mucus PRESENT White Blood Count 14.08 K/uL Red Blood Count 4.58 M/uL Hemoglobin 14.5 g/dL Hematocrit 42.9 % Mean Corpuscular Volume 93.7 fL Mean Corpuscular Hemoglobin 31.7 pg Mean Corpuscular Hemoglobin Concent 33.8 g/dl RDW Standard Deviation 43.7 fL RDW Coefficient of Variation 12.8 % Platelet Count 221 K/uL Mean Platelet Volume 10.0 fL Sodium Level 142 mmol/L 143 mmol/L Potassium Level 3.2 mmol/L 4.1 mmol/L Chloride Level 92 mmol/L 104 mmol/L Carbon Dioxide Level 43 mmol/L 34 mmol/L Anion Gap 8.0 mmol/L 5.0 mmol/L Blood Urea Nitrogen 67 mg/dl 52 mg/dl Creatinine 3.76 mg/dl 2.11 mg/dl Est Creatinine Clear Calc Drug Dose 19.7 ml/min 35.0 ml/min Estimated GFR () 20.0 40.2 Estimated GFR (Non- 17.3 34.7 BUN/Creatinine Ratio 17.8 24.7 Random Glucose 113 mg/dl 129 mg/dl Calcium Level 8.9 mg/dl 8.3 mg/dl Magnesium Level 2.9 mg/dl Phenytoin (Dilantin) Level 8.6 mcg/mL Assessment & Plan SMALL BOWEL OBSTRUCTION Presented with recurrent nausea and vomiting. Imaging by CT demonstrated marked dilatation of stomach and duodenum Apparent recurrent small bowel obstruction. Differential diagnosis per CT: occult neoplasm, SMA syndrome, stricture. Recent EGD and small bowel follow through did not demonstrate any apparent etiology of obstruction. NPO. NGT. IV fluids. GI and General Surgery consulted. 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 May need referral to tertiary care for surgical management. ACUTE KIDNEY INJURY Serum creatinine on admission 2.81 compared to baseline of 0.7-0.9. Acute kidney injury secondary to vomiting and poor PO fluid intake. Creatinine today = 3.76. Increase IV fluids. Follow. WEIGHT LOSS Patient appears to be cachectic. He indicates that he has lost weight, but is unable to quantify. Weight loss may be due to GI pathology or other etiology. Follow. May need nutritional supplementation once GI symptoms allow. Further evaluation as necessary. DYSLIPIDEMIA Hold statin due to GI symptoms. SEIZURE DISORDER Phenytoin level subtherapeutic. IV phenytoin until able to resume oral therapy. VTE PROPHYLAXIS No anticoagulants due to possible need for invasive procedures. SCD's. DISPOSITION To be determined; may need transfer to tertiary care. Expected return to [facility]. . Current Inpatient Medications: Current Inpatient Medications Medications (Trade) Dose Ordered Sig/Dorothea Route Start Time Stop Time Status Last Admin Dose Admin Ondansetron HCl (Zofran Inj) 4 mg Q6H PRN IV 05/18/17 16:00 06/17/17 15:59 Phenytoin Sodium 100 mg/Syringe 2 ml @ 1 mls/min Q6 IV 05/19/17 00:00 06/18/17 00:00 05/19/17 18:08 1 MLS/MIN Sodium Chloride 20 ml/Syringe 20 ml @ 0 mls/min Q6 IV 05/19/17 00:00 06/18/17 00:00 05/19/17 18:08 20 MLS/MIN Famotidine 20 mg/ Syringe 5 ml @ 2.5 mls/min Q12H IV 05/19/17 09:00 06/18/17 08:59 05/19/17 21:48 2.5 MLS/MIN Potassium Chloride/Dextrose/ Sod Cl 1,000 ml @ 150 mls/hr Q6H40M IV 05/19/17 11:30 06/18/17 11:29 05/19/17 16:30 200 MLS/HR
[2017-05-20] MEDS: SODIUM CHLOR 0.9% 10ML FLUSH 20 ML in SYRINGE 0 ML IV SCH ×4 (00:12→17:44)
[2017-05-20] MEDS: PHENYTOIN IV 100 MG in SYRINGE 0 ML IV SCH ×4 (00:13→17:44)
[2017-05-20] MEDS: D5W AND 1/2NSS + 40MEQ KCL 1,000 ML IV SCH ×2 (05:21→11:52)
--- NOTE | 2017-05-20 07:05 | Surgery Progress Note ---
Surgery Progress Note Date of Service May 20, 2017. Subjective no acute changes- NG with mod to high output- taking in ice chips- no c/o pain Objective Vital Signs: Date Time Temp Pulse Resp B/P (MAP) Pulse Ox O2 Delivery O2 Flow Rate FiO2 05/20/17 00:00 Room Air 05/19/17 20:00 Room Air 05/19/17 16:00 Room Air 05/19/17 15:39 36.8 77 20 124/78 (93) 99 Room Air 05/19/17 08:00 Room Air General Appearance: no apparent distress Respiratory/Chest: no respiratory distress Abdomen: soft Laboratory Results: Results Past 24 Hours Test 05/19/17 17:28 05/20/17 06:54 Range/Units Sodium Level 143 136-145 mmol/L Potassium Level 4.1 3.5-5.1 mmol/L Chloride Level 104 98-107 mmol/L Carbon Dioxide Level 34 21-32 mmol/L Anion Gap 5.0 3-11 mmol/L Blood Urea Nitrogen 52 7-18 mg/dl Creatinine 2.11 0.60-1.40 mg/dl Est Creatinine Clear Calc Drug Dose 35.0 ml/min Estimated GFR () 40.2 Estimated GFR (Non- 34.7 BUN/Creatinine Ratio 24.7 10-20 Random Glucose 129 70-99 mg/dl Calcium Level 8.3 8.5-10.1 mg/dl Phenytoin (Dilantin) Level 8.6 10-20 mcg/mL Assessment & Plan 05/20/17- cont NG, may clamp some as needed, try more flavored ice/sips monitor volume. May consider PPN or picc w/ tpn for short term. renal fn slowly improving. Plan would be for transfer at some point for more aggressive intervention.
[2017-05-20 07:18] LABS: HEMATOCRIT 40.8 % (42-52); MEAN CELL VOLUME 95.1 fL (80-100); MEAN CORPUSCULAR HEMOGLOBIN 31.5 pg (25-34); MEAN CORPUSCULAR HGB CONC 33.1 g/dl (32-36); MEAN PLATELET VOLUME 9.9 fL (7.4-10.4); PLATELET COUNT 185 K/uL (130-400); RED BLOOD COUNT 4.29 M/uL (4.7-6.1); WHITE BLOOD COUNT 10.01 K/uL (4.8-10.8)
[2017-05-20 07:59] LABS: BUN/CREATININE RATIO 27.5 (10-20); CALCIUM 8.7 mg/dl (8.5-10.1); CREATININE 1.3 mg/dl (0.60-1.40); POTASSIUM 3.9 mmol/L (3.5-5.1)
[2017-05-20 09:21] VITALS: BP 124/81; PULSE 66; TEMP 36.7; O2SAT 98
[2017-05-20] MEDS: FAMOTIDINE IV INJ 20 MG in SYRINGE 3 ML IV SCH ×2 (09:23→20:50)
--- NOTE | 2017-05-20 09:28 | DIAGNOSTIC IMAGING REPORT ---
KUB CLINICAL HISTORY: Small bowel obstruction. Foreign body. COMPARISON STUDY: CT of the abdomen and pelvis May 18, 2017. FINDINGS: The tip of the nasogastric tube projects over the gastroesophageal junction. The tube could be advanced 7 cm. Gastric distention has significantly improved since prior CT. Duodenal dilatation may persists but has improved. A 1.7 cm linear metallic density projects over the left lower quadrant. There is no evidence for a bowel obstruction on this exam. IMPRESSION: 1. Tip of nasogastric tube projects over the gastroesophageal junction. The tube could be advanced 7 cm. 2. Marked interval improvement in gastric distention. Persistent, but likely improved, duodenal dilatation. 3. 1.7 cm linear metallic density projecting over the left lower quadrant which may reflect ingested foreign body within a small bowel loop. Electronically signed by: Nick Olivier M.D. 05/20/2017 9:27 AM Dictated Date/Time: 05/20/2017 9:20 AM
[2017-05-20] MEDS ORDERED: COUGH DROP (SUGAR FREE) LOZ 24 LOZ/1 BOX PO PRN (12:00)
--- NOTE | 2017-05-20 12:39 | GASTROENTEROLOGY PROGRESS NOTE ---
DATE: 05/20/2017 DATE: 05/20/2017 Cross coverage for [facility]. I had the pleasure of seeing Jon today at his bedside. He had a little over 1 liter of NG aspirate overnight. A repeat KUB this morning shows improvement in his gastric distention as well as the duodenal distention. He does continue to have the 1.7 cm linear metallic density projecting over the left lower quadrant, though he denies any ingestion of a foreign body. He states he is feeling much improved since his arrival. He denies any fevers, chills, nausea, vomiting, hematemesis, melena or hematochezia. He would like to have his NG tube removed and has no other complaints. PHYSICAL EXAMINATION: VITAL SIGNS: Temperature 36.7, pulse 66, respirations 20, blood pressure 124/81, pulse ox 98% on room air. GENERAL: He is awake, cooperative, chronic ill appearing, in no acute distress. HEAD: Normocephalic, atraumatic. EYES: Pupils equally round. Sclerae are nonicteric. CHEST: Clear to auscultation anterior lung carvalho, decreased breath sounds bilateral bases. CARDIOVASCULAR SYSTEM: Regular rate and rhythm. Distant heart sounds. ABDOMEN: Soft, nontender, nondistended. Positive bowel sounds. LABORATORY STUDIES: From today include a white blood cell count of 10.01, hemoglobin 13.5, hematocrit 40.8, platelet count of 185. Sodium 149, potassium 3.9, chloride 111, bicarb 34, BUN 36, creatinine 1.3. Blood glucose of 134. IMPRESSION: A 51-year-old male with questionable ingested foreign body and improvement in small-bowel obstruction with NG tube. PLAN: I would recommend continuing his NG tube to intermittent suction as per Dr. Ray recommendations. He is currently n.p.o. while with the exception of ice chips. He will have a daily KUB and he will be scheduled for a colonoscopy on Monday for further evaluation of his symptoms. I will follow his clinical course and make further recommendations as needed. Once again, thanks for allowing me to participate in the care of this patient. If you have any further questions, please do not hesitate in contacting me.
[2017-05-20 16:04] VITALS: BP 133/84; PULSE 60; TEMP 36.8; O2SAT 100
--- NOTE | 2017-05-20 16:54 | Progress Note ---
Medicine Progress Note Date & Time of Visit: May 20, 2017 at 11:40 . Subjective Doing well. Abdominal pain resolved. No further nausea or vomiting. Bowel movement yesterday. Has some pharyngeal discomfort from NGT. . Objective Last 8 Hrs Date Time Temp Pulse Resp B/P (MAP) Pulse Ox O2 Delivery O2 Flow Rate FiO2 05/20/17 16:04 36.8 60 20 133/84 (100) 100 Room Air 05/20/17 16:00 Room Air 05/20/17 09:21 36.7 66 20 124/81 (95) 98 Room Air Physical Exam: General- cachetic, no distress Eyes- anicteric ENT- NGT draining bilious fluid Lungs- clear; no respiratory distress Heart- RRR, no gallop; no JVD; no edema Abdomen- scaphoid; + BS; soft, nontender Extremities- no cyanosis; no clubbing; no calf tenderness Skin- warm & dry Neuro- alert . Laboratory Results: Last 24 Hours Test 05/19/17 17:28 05/20/17 06:54 Sodium Level 143 mmol/L 149 mmol/L Potassium Level 4.1 mmol/L 3.9 mmol/L Chloride Level 104 mmol/L 111 mmol/L Carbon Dioxide Level 34 mmol/L 34 mmol/L Anion Gap 5.0 mmol/L 4.0 mmol/L Blood Urea Nitrogen 52 mg/dl 36 mg/dl Creatinine 2.11 mg/dl 1.30 mg/dl Est Creatinine Clear Calc Drug Dose 35.0 ml/min 56.9 ml/min Estimated GFR () 40.2 72.2 Estimated GFR (Non- 34.7 62.3 BUN/Creatinine Ratio 24.7 27.5 Random Glucose 129 mg/dl 134 mg/dl Calcium Level 8.3 mg/dl 8.7 mg/dl Phenytoin (Dilantin) Level 8.6 mcg/mL White Blood Count 10.01 K/uL Red Blood Count 4.29 M/uL Hemoglobin 13.5 g/dL Hematocrit 40.8 % Mean Corpuscular Volume 95.1 fL Mean Corpuscular Hemoglobin 31.5 pg Mean Corpuscular Hemoglobin Concent 33.1 g/dl RDW Standard Deviation 44.4 fL RDW Coefficient of Variation 12.8 % Platelet Count 185 K/uL Mean Platelet Volume 9.9 fL Assessment & Plan SMALL BOWEL OBSTRUCTION Presented with recurrent nausea and vomiting. Imaging by CT demonstrated marked dilatation of stomach and duodenum Apparent recurrent small bowel obstruction. Differential diagnosis per CT: occult neoplasm, SMA syndrome, stricture. Recent EGD and small bowel follow through did not demonstrate any apparent etiology of obstruction. NPO. NGT. IV fluids. GI and General Surgery consulted. 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 May need referral to tertiary care for surgical management. ACUTE KIDNEY INJURY Serum creatinine on admission 2.81 compared to baseline of 0.7-0.9. Creatinine dung as high as 3.76. Acute kidney injury secondary to vomiting and poor PO fluid intake. Creatinine today = 1.3. Continue IV fluids. Follow. NUTRITION Poor nutritional status with significant weight loss. Consider starting TPN until able to resume enteral nutrition. WEIGHT LOSS Patient appears to be cachectic. He indicates that he has lost weight, but is unable to quantify. Weight loss may be due to GI pathology or other etiology. Follow. May need nutritional supplementation once GI symptoms allow. Further evaluation as necessary. Eventual colonoscopy recommended. DYSLIPIDEMIA Hold statin due to GI symptoms. SEIZURE DISORDER Phenytoin level subtherapeutic. IV phenytoin until able to resume oral therapy. Check f/u phenytoin level tomorrow. VTE PROPHYLAXIS No anticoagulants due to possible need for invasive procedures. SCD's. DISPOSITION To be determined; may need transfer to tertiary care. Expected return to [facility]. . Current Inpatient Medications: Current Inpatient Medications Medications (Trade) Dose Ordered Sig/Dorothea Route Start Time Stop Time Status Last Admin Dose Admin Ondansetron HCl (Zofran Inj) 4 mg Q6H PRN IV 05/18/17 16:00 06/17/17 15:59 Phenytoin Sodium 100 mg/Syringe 2 ml @ 1 mls/min Q6 IV 05/19/17 00:00 06/18/17 00:00 05/20/17 11:53 1 MLS/MIN Sodium Chloride 20 ml/Syringe 20 ml @ 0 mls/min Q6 IV 05/19/17 00:00 06/18/17 00:00 05/20/17 11:53 20 MLS/MIN Famotidine 20 mg/ Syringe 5 ml @ 2.5 mls/min Q12H IV 05/19/17 09:00 06/18/17 08:59 05/20/17 09:23 2.5 MLS/MIN Potassium Chloride/Dextrose/ Sod Cl 1,000 ml @ 150 mls/hr Q6H40M IV 05/19/17 11:30 06/18/17 11:29 05/20/17 11:52 150 MLS/HR Menthol (Nice Myrna) 1 myrna Q4H PRN PO 05/20/17 12:00 06/19/17 11:59
[2017-05-20] MEDS: D5W AND 1/4NSS + 20MEQ KCL 1,000 ML IV SCH (18:41)
[2017-05-21] MEDS: PHENYTOIN IV 100 MG in SYRINGE 0 ML IV SCH ×4 (00:20→18:06)
[2017-05-21] MEDS: SODIUM CHLOR 0.9% 10ML FLUSH 20 ML in SYRINGE 0 ML IV SCH ×4 (00:21→18:06)
[2017-05-21 00:34] VITALS: BP 145/84; PULSE 54; TEMP 36.7; O2SAT 100
[2017-05-21] MEDS: D5W AND 1/4NSS + 20MEQ KCL 1,000 ML IV SCH ×4 (01:30→22:26)
[2017-05-21 06:11] LABS: HEMATOCRIT 42.2 % (42-52); MEAN CELL VOLUME 95.5 fL (80-100); MEAN CORPUSCULAR HGB CONC 32.5 g/dl (32-36); MEAN PLATELET VOLUME 10.1 fL (7.4-10.4); PLATELET COUNT 204 K/uL (130-400); RED BLOOD COUNT 4.42 M/uL (4.7-6.1); WHITE BLOOD COUNT 9.73 K/uL (4.8-10.8)
[2017-05-21 06:49] LABS: BUN/CREATININE RATIO 20.1 (10-20); CREATININE 1.09 mg/dl (0.60-1.40); MAGNESIUM 2.6 mg/dl (1.8-2.4); POTASSIUM 4.7 mmol/L (3.5-5.1)
--- NOTE | 2017-05-21 06:53 | Surgery Progress Note ---
Surgery Progress Note Date of Service May 21, 2017. Subjective electrolytes improved bilious Ng output- taking signicant ice, popsicles Objective Vital Signs: Date Time Temp Pulse Resp B/P (MAP) Pulse Ox O2 Delivery O2 Flow Rate FiO2 05/21/17 00:34 36.7 54 20 145/84 (104) 100 Room Air 05/21/17 00:00 Room Air 05/20/17 20:00 Room Air 05/20/17 16:04 36.8 60 20 133/84 (100) 100 Room Air 05/20/17 16:00 Room Air 05/20/17 09:21 36.7 66 20 124/81 (95) 98 Room Air 05/20/17 08:00 Room Air General Appearance: no apparent distress Respiratory/Chest: no respiratory distress Abdomen: soft Laboratory Results: Results Past 24 Hours Test 05/20/17 06:54 05/21/17 05:35 Range/Units White Blood Count 10.01 9.73 4.8-10.8 K/uL Red Blood Count 4.29 4.42 4.7-6.1 M/uL Hemoglobin 13.5 13.7 14.0-18.0 g/dL Hematocrit 40.8 42.2 42-52 % Mean Corpuscular Volume 95.1 95.5 80-100 fL Mean Corpuscular Hemoglobin 31.5 31.0 25-34 pg Mean Corpuscular Hemoglobin Concent 33.1 32.5 32-36 g/dl RDW Standard Deviation 44.4 43.6 36.4-46.3 fL RDW Coefficient of Variation 12.8 12.5 11.5-14.5 % Platelet Count 185 204 130-400 K/uL Mean Platelet Volume 9.9 10.1 7.4-10.4 fL Sodium Level 149 136-145 mmol/L Potassium Level 3.9 3.5-5.1 mmol/L Chloride Level 111 98-107 mmol/L Carbon Dioxide Level 34 21-32 mmol/L Anion Gap 4.0 3-11 mmol/L Blood Urea Nitrogen 36 7-18 mg/dl Creatinine 1.30 0.60-1.40 mg/dl Est Creatinine Clear Calc Drug Dose 56.9 ml/min Estimated GFR () 72.2 Estimated GFR (Non- 62.3 BUN/Creatinine Ratio 27.5 10-20 Random Glucose 134 70-99 mg/dl Calcium Level 8.7 8.5-10.1 mg/dl Assessment & Plan 05/21/17- renal function much improved, No plan for surgical intervention here- colonoscopy at some point - not urgent- best for transfer next 1-2 days for additional w/u and treatment. Could try some addnl clear liquids with NG clamping just to give him a little more po 05/20/17- cont NG, may clamp some as needed, try more flavored ice/sips monitor volume. May consider PPN or picc w/ tpn for short term. renal fn slowly improving. Plan would be for transfer at some point for more aggressive intervention. 05/20/17- cont NG, may clamp some as needed, try more flavored ice/sips monitor volume. May consider PPN or picc w/ tpn for short term. renal fn slowly improving. Plan would be for transfer at some point for more aggressive intervention.
[2017-05-21 07:28] VITALS: BP 152/84; PULSE 51; TEMP 36.8; O2SAT 100
[2017-05-21] MEDS: FAMOTIDINE IV INJ 20 MG in SYRINGE 3 ML IV SCH ×2 (08:40→21:06)
--- NOTE | 2017-05-21 09:44 | DIAGNOSTIC IMAGING REPORT ---
KUB HISTORY: Small bowel traction with possible foreign body sbo, foreign body COMPARISON: KUB 05/20/2017, CT 05/18/2017 FINDINGS: Enteric tube terminates within left upper abdomen with distal tip in the region of the proximal gastric lumen. There is mild gaseous distention of the stomach and duodenum. No additional dilated loops of small bowel identified. Normal caliber of colonic loops are noted. Metallic density linear structure is seen within the left lower abdomen, previously measuring 1.7 cm. There is no organomegaly. No renal calculi. No ureteral calculi. No pneumoperitoneum or pneumatosis. No fracture. IMPRESSION: 1. Distal enteric tube overlies the left upper abdomen within the region of the proximal gastric lumen. There is persistent mild distention of the stomach and duodenum. 2. 1.7 cm metallic density structure as noted on comparison studies is seen within the left lower abdomen. Electronically signed by: Mihir Mackay M.D. 05/21/2017 9:42 AM Dictated Date/Time: 05/21/2017 9:37 AM
[2017-05-21 15:00] VITALS: BP 121/74; PULSE 89; TEMP 36.9; O2SAT 94
--- NOTE | 2017-05-21 19:00 | Progress Note ---
Medicine Progress Note Date & Time of Visit: May 21, 2017 at ~ 16:10 . Subjective Better. No nausea, vomiting. No abdominal pain. No BM today. . Objective Last 8 Hrs Date Time Temp Pulse Resp B/P (MAP) Pulse Ox O2 Delivery O2 Flow Rate FiO2 05/21/17 16:00 Room Air 05/21/17 15:00 36.9 89 18 121/74 (90) 94 Room Air Physical Exam: General- cachetic, no distress Eyes- anicteric ENT- NGT draining bilious fluid Lungs- clear; no respiratory distress Heart- RRR, no gallop; no JVD; no edema Abdomen- scaphoid; + BS; soft, nontender Extremities- no cyanosis; no clubbing; no calf tenderness Skin- warm & dry Neuro- alert . Laboratory Results: Last 24 Hours Test 05/21/17 05:35 White Blood Count 9.73 K/uL Red Blood Count 4.42 M/uL Hemoglobin 13.7 g/dL Hematocrit 42.2 % Mean Corpuscular Volume 95.5 fL Mean Corpuscular Hemoglobin 31.0 pg Mean Corpuscular Hemoglobin Concent 32.5 g/dl RDW Standard Deviation 43.6 fL RDW Coefficient of Variation 12.5 % Platelet Count 204 K/uL Mean Platelet Volume 10.1 fL Sodium Level 148 mmol/L Potassium Level 4.7 mmol/L Chloride Level 112 mmol/L Carbon Dioxide Level 33 mmol/L Anion Gap 3.0 mmol/L Blood Urea Nitrogen 22 mg/dl Creatinine 1.09 mg/dl Est Creatinine Clear Calc Drug Dose 67.8 ml/min Estimated GFR () 89.3 Estimated GFR (Non- 77.1 BUN/Creatinine Ratio 20.1 Random Glucose 127 mg/dl Calcium Level 9.0 mg/dl Magnesium Level 2.6 mg/dl Phenytoin (Dilantin) Level 9.8 mcg/mL Assessment & Plan SMALL BOWEL OBSTRUCTION Presented with recurrent nausea and vomiting. Imaging by CT demonstrated marked dilatation of stomach and duodenum Apparent recurrent small bowel obstruction. Differential diagnosis per CT: occult neoplasm, SMA syndrome, stricture. Recent EGD and small bowel follow through did not demonstrate any apparent etiology of obstruction. NPO. NGT. IV fluids. GI and General Surgery consulted. 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 May need referral to tertiary care for surgical management- will discuss with Company Controller at [facility]. ACUTE KIDNEY INJURY Serum creatinine on admission 2.81 compared to baseline of 0.7-0.9. Creatinine dung as high as 3.76. Acute kidney injury secondary to vomiting and poor PO fluid intake. Creatinine today = 1.09. Continue IV fluids. Follow. NUTRITION Poor nutritional status with significant weight loss. Consider starting TPN until able to resume enteral nutrition. WEIGHT LOSS Patient appears to be cachectic. He indicates that he has lost weight, but is unable to quantify. Weight loss may be due to GI pathology or other etiology. Follow. May need nutritional supplementation once GI symptoms allow. Further evaluation as necessary. Eventual colonoscopy recommended. INTRA-ABDOMINAL FOREIGN BODY 1.6 cm metallic density noted LLQ within loop of distal ileum. MR imaging should be avoided. Eventual colonoscopy recommended. DYSLIPIDEMIA Hold statin due to GI symptoms. SEIZURE DISORDER Phenytoin level subtherapeutic at time of admission. IV phenytoin until able to resume oral therapy. Phenytoin level today 9.8. VTE PROPHYLAXIS No anticoagulants due to possible need for invasive procedures. SCD's. DISPOSITION To be determined; may need transfer to tertiary care. Expected return to [facility]. . Current Inpatient Medications: Current Inpatient Medications Medications (Trade) Dose Ordered Sig/Dorothea Route Start Time Stop Time Status Last Admin Dose Admin Ondansetron HCl (Zofran Inj) 4 mg Q6H PRN IV 05/18/17 16:00 06/17/17 15:59 Phenytoin Sodium 100 mg/Syringe 2 ml @ 1 mls/min Q6 IV 05/19/17 00:00 06/18/17 00:00 05/21/17 18:06 1 MLS/MIN Sodium Chloride 20 ml/Syringe 20 ml @ 0 mls/min Q6 IV 05/19/17 00:00 06/18/17 00:00 05/21/17 18:06 20 MLS/MIN Famotidine 20 mg/ Syringe 5 ml @ 2.5 mls/min Q12H IV 05/19/17 09:00 06/18/17 08:59 05/21/17 08:40 2.5 MLS/MIN Menthol (Nice Myrna) 1 myrna Q4H PRN PO 05/20/17 12:00 06/19/17 11:59 Potassium Chloride/Dextrose/ Sod Cl 1,000 ml @ 150 mls/hr Q6H40M IV 05/20/17 17:00 06/19/17 16:59 05/21/17 12:39 150 MLS/HR
[2017-05-21 23:54] VITALS: BP 136/82; PULSE 62; TEMP 36.9; O2SAT 100
[2017-05-22] MEDS: PHENYTOIN IV 100 MG in SYRINGE 0 ML IV SCH ×4 (00:13→17:39)
[2017-05-22] MEDS: SODIUM CHLOR 0.9% 10ML FLUSH 20 ML in SYRINGE 0 ML IV SCH ×4 (00:14→17:39)
[2017-05-22] MEDS: D5W AND 1/4NSS + 20MEQ KCL 1,000 ML IV SCH ×3 (05:22→15:38)
--- NOTE | 2017-05-22 06:33 | Surgery Progress Note ---
Surgery Progress Note Date of Service May 22, 2017. Subjective afeb, vitals stable- adeq urine output labs improved high NG output- taking in clear liquids with NG clamping Objective Vital Signs: Date Time Temp Pulse Resp B/P (MAP) Pulse Ox O2 Delivery O2 Flow Rate FiO2 05/22/17 00:00 Room Air 05/21/17 23:54 36.9 62 20 136/82 (100) 100 Room Air 05/21/17 20:00 Room Air 05/21/17 16:00 Room Air 05/21/17 15:00 36.9 89 18 121/74 (90) 94 Room Air 05/21/17 08:00 Room Air 05/21/17 07:28 36.8 51 16 152/84 (106) 100 Room Air General Appearance: no apparent distress, + pertinent finding (pt sleeping/ awakened- no distress) Respiratory/Chest: no respiratory distress Abdomen: non distended, soft Laboratory Results: Results Past 24 Hours Test 05/22/17 04:44 Range/Units Assessment & Plan 05/22/17- much improved fluid status, renal function. I suspect gastroduodenal distention will recur if NG removed. Dr Figueroa to discuss transfer with [facility], [facility]. 05/21/17- renal function much improved, No plan for surgical intervention here- colonoscopy at some point - not urgent- best for transfer next 1-2 days for additional w/u and treatment. Could try some addnl clear liquids with NG clamping just to give him a little more po 05/20/17- cont NG, may clamp some as needed, try more flavored ice/sips monitor volume. May consider PPN or picc w/ tpn for short term. renal fn slowly improving. Plan would be for transfer at some point for more aggressive intervention. 05/21/17- renal function much improved, No plan for surgical intervention here- colonoscopy at some point - not urgent- best for transfer next 1-2 days for additional w/u and treatment. Could try some addnl clear liquids with NG clamping just to give him a little more po 05/20/17- cont NG, may clamp some as needed, try more flavored ice/sips monitor volume. May consider PPN or picc w/ tpn for short term. renal fn slowly improving. Plan would be for transfer at some point for more aggressive intervention.
[2017-05-22 07:19] LABS: HEMATOCRIT 36.5 % (42-52); MEAN CELL VOLUME 91.9 fL (80-100); MEAN CORPUSCULAR HEMOGLOBIN 31.5 pg (25-34); MEAN CORPUSCULAR HGB CONC 34.2 g/dl (32-36); MEAN PLATELET VOLUME 9.9 fL (7.4-10.4); PLATELET COUNT 197 K/uL (130-400); RED BLOOD COUNT 3.97 M/uL (4.7-6.1); WHITE BLOOD COUNT 8.64 K/uL (4.8-10.8)
[2017-05-22 07:21] VITALS: BP 136/80; PULSE 63; TEMP 36.6; O2SAT 100
[2017-05-22 07:53] LABS: BUN/CREATININE RATIO 15.3 (10-20); CALCIUM 8.1 mg/dl (8.5-10.1); CREATININE 0.81 mg/dl (0.60-1.40); MAGNESIUM 1.8 mg/dl (1.8-2.4)
[2017-05-22 08:07] LABS: ALB/GLOB RATIO 0.9 (0.9-2); PHOSPHORUS 1.3 mg/dl (2.5-4.9)
[2017-05-22] MEDS: FAMOTIDINE IV INJ 20 MG in SYRINGE 3 ML IV SCH (08:31)
[2017-05-22] MEDS ORDERED: POTASSIUM PHOS 3 MMOL/1 ML INFUSION IV STA (08:56)
--- NOTE | 2017-05-22 09:06 | Gastroenterology Progress Note ---
Progress Note Date of Service: May 22, 2017 Subjective Pt evaluation today including: conversation w/ patient, physical exam, chart review, lab review Pt was seen and evaluated, chart reviewed. On clears and tolerating per pt. NG currently clamped. No KUB this am. He tells me he feels ok. No abd pain. No fever, chills, CP, SOB. Had a small BM two days ago, no black/bloody stools. KUB 05/21/17: Distal enteric tube overlies the left upper abdomen within the region of the proximal gastric lumen. There is persistent mild distention of the stomach and duodenum. 1.7 cm metallic density structure as noted on comparison studies is seen within the left lower abdomen. KUB 05/20/17:Tip of nasogastric tube projects over the gastroesophageal junction. The tube could be advanced 7 cm. Marked interval improvement in gastric distention. Persistent, but likely improved, duodenal dilatation. 1.7 cm linear metallic density projecting over the left lower quadrant which may reflect ingested foreign body within a small bowel loop. KUB 05/18/17: Marked distention of the stomach and duodenum re-demonstrated with a similar pattern of disease from comparison CT dated 05/10/2017. No pneumoperitoneum identified. No acute cardiopulmonary process RUQ US 05/18/17: No acute sonographic abnormality is identified in the right upper quadrant. No gallstones are seen. Survey images of the right kidney demonstrate increased cortical echotexture. Correlate clinically for evidence of medical renal disease. CT ABD 05/18/17: Marked gastric and duodenal dilation with focal obstruction at the level of the third portion duodenum appears similar to comparison CT 2016. No obstructing mass or lesion identified. Differential considerations again would include occult neoplasm, superior mesenteric artery syndrome or stricture. Correlation with endoscopy recommended. 1.6 cm metallic density structure of the left lower quadrant appears to be within a loop of distal ileum suggesting ingested foreign body. In retrospect this was present on the comparison upper GI series study and at that time was noted within the left upper abdomen. No pneumoperitoneum. EGD 05/11/17: reflux esophagitis, no ulcers, no gastric outlet obstruction. Small bowel enteroscopy 05/11/17: dilatation of proximal duodenum, normal appearing mucosa. Small bowel follow-through 05/12/17: mild MINNIE, mild dilation of duodenum, no obstruction. Review of Systems Constitutional: No fever, No chills Respiratory: No cough Cardiac: No chest pain Abdomen: No pain, No nausea, No vomiting, No diarrhea Medications Current Inpatient Medications Medications (Trade) Dose Ordered Sig/Dorothea Route Start Time Stop Time Status Last Admin Dose Admin Ondansetron HCl (Zofran Inj) 4 mg Q6H PRN IV 05/18/17 16:00 06/17/17 15:59 Phenytoin Sodium 100 mg/Syringe 2 ml @ 1 mls/min Q6 IV 05/19/17 00:00 06/18/17 00:00 05/22/17 05:37 1 MLS/MIN Sodium Chloride 20 ml/Syringe 20 ml @ 0 mls/min Q6 IV 05/19/17 00:00 06/18/17 00:00 05/22/17 05:37 20 MLS/MIN Famotidine 20 mg/ Syringe 5 ml @ 2.5 mls/min Q12H IV 05/19/17 09:00 06/18/17 08:59 05/22/17 08:31 2.5 MLS/MIN Menthol (Nice Myrna) 1 myrna Q4H PRN PO 05/20/17 12:00 06/19/17 11:59 Potassium Chloride/Dextrose/ Sod Cl 1,000 ml @ 150 mls/hr Q6H40M IV 05/20/17 17:00 06/19/17 16:59 05/22/17 08:31 150 MLS/HR Potassium Phosphate (Potassium Phosphate Replacement) 21 mmol NOW STAT IV 05/22/17 08:56 05/22/17 08:57 UNV Objective Vital Signs Date Time Temp Pulse Resp B/P (MAP) Pulse Ox O2 Delivery O2 Flow Rate FiO2 05/22/17 07:21 36.6 63 18 136/80 (98) 100 Room Air 05/22/17 00:00 Room Air 05/21/17 23:54 36.9 62 20 136/82 (100) 100 Room Air 05/21/17 20:00 Room Air 05/21/17 16:00 Room Air 05/21/17 15:00 36.9 89 18 121/74 (90) 94 Room Air Physical Exam General Appearance: no apparent distress, + thin Eyes: PERRL ENT: hearing grossly normal Neck: supple Respiratory/Chest: lungs clear Cardiovascular: regular rate, rhythm Abdomen: non tender, soft, no organomegaly Neurologic/Psych: alert, normal mood/affect, oriented x 3 Skin: normal color Laboratory Results Last 24 Hours Test 05/22/17 06:35 White Blood Count 8.64 K/uL Red Blood Count 3.97 M/uL Hemoglobin 12.5 g/dL Hematocrit 36.5 % Mean Corpuscular Volume 91.9 fL Mean Corpuscular Hemoglobin 31.5 pg Mean Corpuscular Hemoglobin Concent 34.2 g/dl RDW Standard Deviation 40.5 fL RDW Coefficient of Variation 11.9 % Platelet Count 197 K/uL Mean Platelet Volume 9.9 fL Sodium Level 136 mmol/L Potassium Level 4.0 mmol/L Chloride Level 103 mmol/L Carbon Dioxide Level 29 mmol/L Anion Gap 4.0 mmol/L Blood Urea Nitrogen 12 mg/dl Creatinine 0.81 mg/dl Est Creatinine Clear Calc Drug Dose 91.3 ml/min Estimated GFR () 117.6 Estimated GFR (Non- 101.5 BUN/Creatinine Ratio 15.3 Random Glucose 106 mg/dl Calcium Level 8.1 mg/dl Phosphorus Level 1.3 mg/dl Magnesium Level 1.8 mg/dl Total Bilirubin 0.6 mg/dl Aspartate Amino Transf (AST/SGOT) 66 U/L Alanine Aminotransferase (ALT/SGPT) 102 U/L Alkaline Phosphatase 179 U/L Total Protein 6.4 gm/dl Albumin 3.1 gm/dl Globulin 3.3 gm/dl Albumin/Globulin Ratio 0.9 Assessment and Plan Patient is a 51 year old male readmitted a week after discharge for recurrent SBO. Imaging suggestive of duodenal obstruction, ruled out w/ small bowel enteroscopy and small bowel follow though without mass, stricture, obstruction identified. There is question if he may be predisposed to recurrent gastric outlet obstruction due to body habitus, SMA syndrome. He notes unintentional weight loss of over 80 lbs in the past year. He has never had a colonoscopy that he recalls. NG clamped with trial of clears this AM, KUB yet to be obtained Management of SBO per surgery - planned for transfer to tertiary care center per surgery - NG to intermittent suction - now clamped 05/22/17 w/ clears - IVF hydration - antiemetics prn - analgesia PRN - daily KUB for both SBO and foreign body Unintentional weight loss - EGD completed - CT abd/pelvis complete - Can arrange colonoscopy at appointment to be scheduled - will need resolution of SBO to tolerate prep GI to sign off. Please call with any questions or concern I performed a history and physical examination of the patient, I have discussed the patient's management with Marisela. Please refer to the [facility]'s note for the documented findings and plan of care. Recurrent SBO, ?SMA syndrome. Planned for transfer to [place] per surgical team. Recall us if any question.
[2017-05-22] MEDS ORDERED: POTASSIUM PHOSPHATE INJ 21 MMOL in SODIUM CHLORIDE 0.9% 500ML 500 ML IV ONE (09:15)
--- NOTE | 2017-05-22 09:37 | DIAGNOSTIC IMAGING REPORT ---
KUB CLINICAL HISTORY: 51 years-old Male presenting with sbo, foreign body. TECHNIQUE: Single supine view of the abdomen was obtained. COMPARISON: 05/21/2017. FINDINGS: Moderate stool burden primarily in the transverse colon. Nonobstructive bowel gas pattern. A resolution clip projects over the right mid abdomen. No gross pneumoperitoneum. A nasogastric tube terminates in the region of the gastroesophageal junction with sidehole contained within the esophagus. No calcifications to suggest nephrolithiasis. Osseous structures normal. Lung bases clear. IMPRESSION: 1. Resolution clip in the right mid abdomen, suggesting distal progression in the bowel. 2. No obstruction. 3. Nasogastric tube terminates at the gastroesophageal junction with sidehole in the esophagus; advancement recommended. Electronically signed by: Ming Archibald M.D. 05/22/2017 9:36 AM Dictated Date/Time: 05/22/2017 9:32 AM
--- NOTE | 2017-05-22 13:54 | Progress Note ---
Medicine Progress Note Date & Time of Visit: May 22, 2017 at 13:48 . Subjective Doing well. No fever. No nausea, vomiting, abdominal pain. . Objective Last 8 Hrs Date Time Temp Pulse Resp B/P (MAP) Pulse Ox O2 Delivery O2 Flow Rate FiO2 05/22/17 08:00 Room Air 05/22/17 07:21 36.6 63 18 136/80 (98) 100 Room Air Physical Exam: General- cachetic, no distress Eyes- anicteric ENT- NGT draining bilious fluid Lungs- clear to auscultation Heart- RRR, no gallop; no JVD; no edema Abdomen- scaphoid; + BS; soft, nontender Extremities- no cyanosis; no clubbing; no calf tenderness Skin- warm & dry Neuro- alert . Laboratory Results: Last 24 Hours Test 05/22/17 06:35 White Blood Count 8.64 K/uL Red Blood Count 3.97 M/uL Hemoglobin 12.5 g/dL Hematocrit 36.5 % Mean Corpuscular Volume 91.9 fL Mean Corpuscular Hemoglobin 31.5 pg Mean Corpuscular Hemoglobin Concent 34.2 g/dl RDW Standard Deviation 40.5 fL RDW Coefficient of Variation 11.9 % Platelet Count 197 K/uL Mean Platelet Volume 9.9 fL Sodium Level 136 mmol/L Potassium Level 4.0 mmol/L Chloride Level 103 mmol/L Carbon Dioxide Level 29 mmol/L Anion Gap 4.0 mmol/L Blood Urea Nitrogen 12 mg/dl Creatinine 0.81 mg/dl Est Creatinine Clear Calc Drug Dose 91.3 ml/min Estimated GFR () 117.6 Estimated GFR (Non- 101.5 BUN/Creatinine Ratio 15.3 Random Glucose 106 mg/dl Calcium Level 8.1 mg/dl Phosphorus Level 1.3 mg/dl Magnesium Level 1.8 mg/dl Total Bilirubin 0.6 mg/dl Aspartate Amino Transf (AST/SGOT) 66 U/L Alanine Aminotransferase (ALT/SGPT) 102 U/L Alkaline Phosphatase 179 U/L Total Protein 6.4 gm/dl Albumin 3.1 gm/dl Globulin 3.3 gm/dl Albumin/Globulin Ratio 0.9 Assessment & Plan SMALL BOWEL OBSTRUCTION Presented with recurrent nausea and vomiting. Imaging by CT demonstrated marked dilatation of stomach and duodenum with transition at the 3rd portion of the duodenum. Apparent recurrent small bowel obstruction. Differential diagnosis per CT: occult neoplasm, SMA syndrome, stricture. Recent EGD and small bowel follow through did not demonstrate any apparent etiology of obstruction. NPO. NGT. IV fluids. GI and General Surgery consulted. 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 May need referral to tertiary care for surgical management. Discussed with Roof Truss Builder at [facility]. Discussed with Dr. Batres (General Surgery, [facility] [place] ACUTE KIDNEY INJURY Serum creatinine on admission 2.81 compared to baseline of 0.7-0.9. Creatinine dung as high as 3.76. Acute kidney injury secondary to vomiting and poor PO fluid intake. Creatinine today = 0.81. Continue IV fluids. Follow. HYPOKALEMIA K as low as 3.2. Replaced. Follow. HYPOPHOSPHATEMIA Serum phosphorus 1.3 on 05/22. Received 21 mEq K Phos. Follow. NUTRITION Poor nutritional status with significant weight loss. Consider TPN or enteral feedings via J-tube, depending on surgical disposition. WEIGHT LOSS Patient appears to be cachectic. He indicates that he has lost weight, but is unable to quantify. Weight loss may be due to GI pathology or other etiology. Follow. May need nutritional supplementation once GI symptoms allow. Further evaluation as necessary. Eventual colonoscopy recommended. INTRA-ABDOMINAL FOREIGN BODY 1.6 cm metallic density noted LLQ within loop of distal ileum. MR imaging should be avoided. Eventual colonoscopy recommended. DYSLIPIDEMIA Hold statin due to GI symptoms. SEIZURE DISORDER Phenytoin level subtherapeutic at time of admission. IV phenytoin until able to resume oral therapy. Phenytoin level 05/21 was 9.8. VTE PROPHYLAXIS No anticoagulants due to possible need for invasive procedures. SCD's. DISPOSITION Arrangements being made for transfer to [facility] for further evaluation and management. Expected return to [facility]. . Current Inpatient Medications: Current Inpatient Medications Medications (Trade) Dose Ordered Sig/Dorothea Route Start Time Stop Time Status Last Admin Dose Admin Ondansetron HCl (Zofran Inj) 4 mg Q6H PRN IV 05/18/17 16:00 06/17/17 15:59 Phenytoin Sodium 100 mg/Syringe 2 ml @ 1 mls/min Q6 IV 05/19/17 00:00 06/18/17 00:00 05/22/17 12:15 1 MLS/MIN Sodium Chloride 20 ml/Syringe 20 ml @ 0 mls/min Q6 IV 05/19/17 00:00 06/18/17 00:00 05/22/17 12:14 20 MLS/MIN Famotidine 20 mg/ Syringe 5 ml @ 2.5 mls/min Q12H IV 05/19/17 09:00 06/18/17 08:59 05/22/17 08:31 2.5 MLS/MIN Menthol (Nice Myrna) 1 myrna Q4H PRN PO 05/20/17 12:00 06/19/17 11:59 Potassium Chloride/Dextrose/ Sod Cl 1,000 ml @ 150 mls/hr Q6H40M IV 05/20/17 17:00 06/19/17 16:59 05/22/17 08:31 150 MLS/HR
[2017-05-22] MEDS ORDERED: ZFRI4 IV (14:04)
[2017-05-22] MEDS ORDERED: [UNRECOGNIZED DRUG - MIXTURE] IV (14:04)
[2017-05-22] MEDS ORDERED: [UNRECOGNIZED DRUG - CODE] IV (14:04)
[2017-05-22] MEDS ORDERED: FAMO20IN2 IV (14:04)
--- NOTE | 2017-05-22 14:06 | Discharge Instructions ---
Discharge Instructions Date of Service May 22, 2017. Admission Reason for Admission: Small Bowel Obstruction . Discharge Discharge Diagnosis / Problem: Small Bowel Obstruction Discharge Goals Goal(s): Decrease discomfort, Improve disease control Activity Recommendations Activity Limitations: resume your previous activity . Current Hospital Diet Patient's current hospital diet: Clear Liquid Diet Discharge Diet Recommended Diet: N/A (NPO except ice chips and sips) Pending Studies Studies pending at discharge: no Medical Emergencies . Who to Call and When: Medical Emergencies: If at any time you feel your situation is an emergency, please call 911 immediately. . Non-Emergent Contact Non-Emergency issues call your: Primary Care Provider, Hospital Doctor . . "Provider Documentation" section prepared by Ivan Figueroa. . VTE Core Measure Inpt VTE Proph given/why not?: SCD's
--- NOTE | 2017-05-22 14:16 | Discharge Summary ---
Discharge Summary Date of Service May 22, 2017. Discharge Summary Admission Date: May 18, 2017 at 15:55 Discharge Date: May 22, 2017 Discharge Disposition: Acute care facility ([facility]) Principal Diagnosis: small bowel obstruction OTHER ACUTE MEDICAL PROBLEMS: acute kidney injury hypokalemia hypophosphatemia malnutrition . Secondary Diagnoses/Problems: Chronic and Resolved Medical Problems: Chronic back pain Foreign body distal ileum Hyperlipidemia Malnutrition Seizure disorder Weight loss . Procedures: US abdomen CT abdomen + pelvis insertion NGT IV fluids . Consultations: General Surgery- Dr. Toussaint. GI- Dr. Lord. Medication Reconciliation New Medications: Famotidine In Nacl (Famotidine Premixed) 1 Inj Inj 20 MG IV BID for 7 Days Phenytoin Sodium (Phenytoin Sodium) 50 Mg/Ml Inj 100 MG IV Q6 for 7 Days q 6 hrs @ 0000, 0600, 1200, 1800 [D5 1/4 Nss] () 150 ML IV Q1H + 22 mEq K-phos / liter Ondansetron (Ondansetron Hcl) 2 Mg/Ml Inj 4 MG IV Q6H PRN for Nausea for 7 Days Continued Medications: Aspirin (Aspirin Ec) 81 Mg Tab 81 MG PO DAILY Currently on hold due to NPO status. Atorvastatin (Atorvastatin Calcium) 10 Mg Tab 10 MG PO HS Currently on hold due to NPO status. Mirtazapine Soltab (Remeron Soltab) 15 Mg Soltab 15 MG PO HS, TAB Currently on hold due to NPO status. Pantoprazole (Protonix) 40 Mg Tab 40 MG PO DAILY, #30 TAB Currently on hold due to NPO status. Phenytoin (Dilantin Chewable) 50 Mg Chw 50 MG PO HS, CHW Currently on hold due to NPO status. Phenytoin Sodium (Dilantin) 100 Mg Cap 2 CAP PO BID, 3 Refills Currently on hold due to NPO status. Discontinued Medications: Metoclopramide HCl (Metoclopramide HCl) 5 Mg Tab 5 MG PO HS for 5 Days, #5 TAB [Boost Plus Vanilla] () 1 CAN LIQD 1 CAN PO TID for 30 Days, #90 Admission Information HPI (per Admitting provider): 51 YO male followed by medical team at [facility]. History of dyslipidemia and seizure disorder. Admitted to [facility] 05/10/17 with acute nausea and vomiting. Had been taking meloxicam for back pain. CT of abdomen and pelvis demonstrated duodenal obstruction with transition point at the 3rd portion of the duodenum as it crossed the aorta. No masses identified. NGT placed. GI and General Surgery consulted. EGD 05/11/17 demonstrated reflux esophagitis, no ulcers, no gastric outlet obstruction. Small bowel enteroscopy 05/11/17 demonstrated dilatation of proximal duodenum, normal appearing mucosa. Small bowel follow-through 05/12/17 demonstrated mild MINNIE, mild dilation of duodenum, no obstruction. Diet advanced and returned to [facility] on 05/13/17. Developed recurrent nausea and vomiting. Vomiting several times a day. No hematemesis. No melena or hematochezia. Has some epigastric pain that is moderately severe, constant. Patient reports that he has lost weight, but is unable to say how much. . Physical Exam (per Admitting): General Appearance: + mild distress, + cachetic Head: atraumatic Eyes: PERRL, EOMI, sclerae normal ENT: normal ENT inspection, hearing grossly normal, + pertinent finding ( NGT draining bilious gastric fluid) Neck: supple, no adenopathy, thyroid normal, no JVD Respiratory/Chest: + pertinent finding (mild wheezing) Cardiovascular: regular rate, rhythm, no edema, no gallop, no JVD Abdomen/GI: + pertinent finding (scaphoid abodmen, mild epigastric tenderness without rebound or guarding, no palpable masses or organomegaly) Extremities/Musculoskelatal: normal inspection, no calf tenderness, no pedal edema Neurologic/Psych: alert, normal mood/affect, oriented x 3, + pertinent finding (PERRL, EOMI) Skin: normal color, warm/dry Lymphatic: no adenopathy (cervical) Hospital Course SMALL BOWEL OBSTRUCTION Presented with recurrent nausea and vomiting. Imaging by CT demonstrated marked dilatation of stomach and duodenum with transition at the 3rd portion of the duodenum. Apparent recurrent small bowel obstruction. Differential diagnosis per CT: occult neoplasm, SMA syndrome, stricture. Recent EGD and small bowel follow through did not demonstrate any apparent etiology of obstruction. NPO. NGT. IV fluids. GI and General Surgery consulted. 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 Needs referral to tertiary care for surgical management. Discussed with [facility] at [facility]. Discussed with Dr. Batres (General Surgery, [facility] [place], [id number]. ACUTE KIDNEY INJURY Serum creatinine on admission 2.81 compared to baseline of 0.7-0.9. Creatinine dung as high as 3.76. Acute kidney injury secondary to vomiting and poor PO fluid intake. Creatinine today = 0.81. Continue IV fluids. Follow. HYPOKALEMIA K as low as 3.2. Replaced. Follow. HYPOPHOSPHATEMIA Serum phosphorus 1.3 on 05/22. Received 21 mEq K Phos. Add K phos to primary IV. Follow. NUTRITION Poor nutritional status with significant weight loss. Consider TPN or enteral feedings via J-tube, depending on surgical disposition. WEIGHT LOSS Patient appears to be cachectic. He indicates that he has lost weight, but is unable to quantify. Weight loss may be due to GI pathology or other etiology. Follow. May need nutritional supplementation once GI symptoms allow. Further evaluation as necessary. Eventual colonoscopy recommended. INTRA-ABDOMINAL FOREIGN BODY 1.6 cm metallic density noted LLQ within loop of distal ileum. MR imaging should be avoided. Eventual colonoscopy recommended. DYSLIPIDEMIA Hold statin due to GI symptoms. SEIZURE DISORDER Phenytoin level subtherapeutic at time of admission. IV phenytoin until able to resume oral therapy. Phenytoin level 05/21 was 9.8. VTE PROPHYLAXIS No anticoagulants due to possible need for invasive procedures. SCD's. DISPOSITION Arrangements being made for transfer to [facility] for further evaluation and management. Expected return to [facility]. . Total time spent on discharge = 40 min. This includes examination of the patient, discharge planning, medication reconciliation, and communication with other providers. . Discharge Instructions VITALS: routine ACTIVITY: as tolerated with assistance ALLERGIES: phenobarbital NURSING: NGT low intermittent suction seizure precautions I/O's: q shift DIET: NPO except for ice chips and sips clear liquids IV: D5 / NSS + 22 mEQ K-phos @ 150 mls/hr VTE PROPHYLAXIS: SCD's pending surgical disposition Diagnostic imaging studies to be sent on CD or DVD with patient; should be available in PACS as well. Thank you for receiving this patient in transfer. Please call if you have any questions. Ivan Figueroa . Additional Copies To [facility]
[2017-05-22 17:22] VITALS: BP 139/85; PULSE 63; TEMP 37; O2SAT 100
[2017-05-22 17:32] VITALS: BP 139/85; PULSE 63; TEMP 37; O2SAT 100
== END 2017-05-22 19:29 | disposition short-term general hospital (02) | DRG 394 ==
LOC: EDBD 11:40 → C.EDC 11:42 → C.MS4W 15:55 → ENRESERV 16:45
PROVIDERS: ADMIT Hospitalist; ATTEND Hospitalist
DX: K55.1 Chronic vascular disorders of intestine (principal); N17.9 Acute kidney failure, unspecified; R64 Cachexia; E46 Unspecified protein-calorie malnutrition; G40.909 Epilepsy, unspecified, not intractable, without status epilepticus; E78.5 Hyperlipidemia, unspecified; E83.39 Other disorders of phosphorus metabolism; E87.6 Hypokalemia; F17.200 Nicotine dependence, unspecified, uncomplicated; Z79.82 Long term (current) use of aspirin; Z79.899 Other long term (current) drug therapy; T18.3XXA Foreign body in small intestine, initial encounter; X58.XXXA Exposure to other specified factors, initial encounter